=== PATIENT | male | born 1960 | race Caucasian/White ===

== ENCOUNTER → 2017-07-30 16:23 | Outpatient (CLI) | payer OTHER, SELFPAY ==
[2017-07-30 18:14] LABS: Free T3 2.7 pg/mL (2.18-3.98); T4 Free Direct 0.89 ng/dL (0.76-1.46); Thyroid Stim Hormone (TSH) 0.48 uIU/mL (0.358-3.74)
== END ==
PROVIDERS: Family Provider Family Medicine; PCP Family Medicine; Visit Provider Family Medicine
DX: R94.6 Abnormal results of thyroid function studies (principal)
CPT/HCPCS: 36415; 84439; 84443; 84481

== ENCOUNTER → 2018-06-10 16:03 | Outpatient (CLI) | payer OTHER, SELFPAY ==
[2016-10-10 15:56] VITALS: BMI 28.4
[2018-06-10 17:48] LABS: ALB/GLOB Ratio 1.2 RATIO (0.9-2.4); AST(SGOT) 21 U/L (15-37); Alanine Aminotransfer ALT/SGPT 34 U/L (16-61); Alkaline Phosphatase 61 U/L (45-117); Anion Gap 8 (5-15); BUN 15 mg/dL (7-18); BUN/Creat Ratio 18.3 RATIO (10-20); Calcium,Total 8.3 mg/dL (8.5-10.1); Chloride 106 mmol/L (98-107); Cholesterol 166 mg/dL (200); Creatinine, Serum 0.82 mg/dL (0.70-1.30); EST Glomerular Filtration Rate 102 mL/min (>60); Est Glom Filt Rate - Afr Amer 124 mL/min (>60); Globulin 3.3 g/dL (2.2-4.2); Glucose 129 mg/dL (74-106); High Density Lipoprotein 37 mg/dL; Potassium 3.5 mmol/L (3.5-5.1); Protein, Total 7.3 g/dL (6.4-8.2); Sodium Level 141 mmol/L (136-145); Thyroid Stim Hormone (TSH) 0.37 uIU/mL (0.358-3.74); Triglycerides 113 mg/dL; Very Low Density Lipoprotein 23 mg/dL (5-40)
== END ==
LOC: MTLAB 16:08
PROVIDERS: Family Provider Family Medicine; PCP Family Medicine; Referring Provider Family Medicine; Visit Provider Family Medicine
DX: E11.65 Type 2 diabetes mellitus with hyperglycemia (principal)
CPT/HCPCS: 36415; 80053; 80061; 84403; 84443

== ENCOUNTER → 2019-09-01 | Outpatient (CLI) | payer OTHER, SELFPAY ==
[2016-10-10 15:56] VITALS: BMI 28.4
[2019-09-01 14:04] LABS: ALB/GLOB Ratio 1.1 RATIO (0.9-2.4); AST(SGOT) 18 U/L (15-37); Alanine Aminotransfer ALT/SGPT 26 U/L (16-61); Alkaline Phosphatase 63 U/L (45-117); Anion Gap 8 (5-15); BUN 16 mg/dL (7-18); BUN/Creat Ratio 17.2 RATIO (10-20); Calcium,Total 8.9 mg/dL (8.5-10.1); Chloride 106 mmol/L (98-107); Cholesterol 264 mg/dL (200); Creatinine, Serum 0.93 mg/dL (0.70-1.30); EST Glomerular Filtration Rate 88 mL/min (>60); Est Glom Filt Rate - Afr Amer 107 mL/min (>60); Globulin 3.6 g/dL (2.2-4.2); Glucose 131 mg/dL (74-106); High Density Lipoprotein 59 mg/dL; Potassium 3.6 mmol/L (3.5-5.1); Protein, Total 7.6 g/dL (6.4-8.2); Sodium Level 142 mmol/L (136-145); Thyroid Stim Hormone (TSH) 0.37 uIU/mL (0.358-3.74); Triglycerides 95 mg/dL; Very Low Density Lipoprotein 19 mg/dL (5-40)
== END | disposition home or self-care (01) ==
LOC: MTLAB 10:49
PROVIDERS: PCP Family Medicine; Referring Provider Family Medicine; Visit Provider Family Medicine
DX: E11.65 Type 2 diabetes mellitus with hyperglycemia (principal)
CPT/HCPCS: 36415; 80053; 80061; 84443

== ENCOUNTER → 2020-09-12 17:24 | Outpatient (CLI) | payer OTHER, SELFPAY ==
[2016-10-10 15:56] VITALS: BMI 28.4
--- NOTE | 2020-09-12 17:28 | RAD_ITS ---
STUDY: X-RAY - RIGHT HAND REASON FOR EXAM: Male, 59 years old. THUMB PAIN TECHNIQUE: 3 view(s) of the hand. COMPARISON: None. FINDINGS: Normal radiocarpal articulation. Normal distal radioulnar joint. Normal visualized carpal bones. Normal carpal articulations Normal carpometacarpal articulation of the thumb. Normal second through fifth carpometacarpal joints. Normal metacarpi. Normal metacarpophalangeal joint of the thumb. Normal interphalangeal joint of the thumb. Surgical anchor within the base of the first proximal phalanx per Normal metacarpophalangeal joints of the second through fifth fingers. Normal proximal and distal interphalangeal joints of the second through fifth fingers. Normal phalanges of the second through fifth fingers. The soft tissue structures are unremarkable. RAD/Hand Min 3 Views IMPRESSION: Normal x-ray examination of the hand. Surgical anchor in the base of the first proximal phalanx. Electronically Signed: Kodi Rao MD at 7:08 EDT Tel , Service support ,
== END ==
PROVIDERS: PCP Family Medicine; Referring Provider Family Medicine; Visit Provider Family Medicine
DX: M79.644 Pain in right finger(s) (principal)
CPT/HCPCS: 73130

== ENCOUNTER → 2020-09-30 15:05 | Outpatient (CLI) | payer OTHER, SELFPAY ==
[2016-10-10 15:56] VITALS: BMI 28.4
[2020-09-30 18:35] LABS: Anion Gap 8 (5-15); BUN 22 mg/dL (7-18); BUN/Creat Ratio 22.6 RATIO (10-20); Calcium,Total 9.2 mg/dL (8.5-10.1); Chloride 106 mmol/L (98-107); Cholesterol 198 mg/dL (200); Creatinine, Serum 0.97 mg/dL (0.70-1.30); EST Glomerular Filtration Rate 83 mL/min (>60); Est Glom Filt Rate - Afr Amer 101 mL/min (>60); Glucose 117 mg/dL (74-106); High Density Lipoprotein 58 mg/dL; Potassium 4.1 mmol/L (3.5-5.1); Sodium Level 141 mmol/L (136-145); Triglycerides 102 mg/dL; Very Low Density Lipoprotein 20 mg/dL (5-40)
== END ==
PROVIDERS: PCP Family Medicine; Visit Provider Family Medicine
DX: E11.65 Type 2 diabetes mellitus with hyperglycemia (principal)
CPT/HCPCS: 36415; 80048; 80061

== ENCOUNTER → 2021-02-04 | Outpatient (CLI) | payer OTHER, SELFPAY | END | disposition home or self-care (01) | PROVIDERS: PCP Family Medicine; Referring Provider Family Medicine; Visit Provider Family Medicine | DX: U07.1 COVID-19 (principal) | CPT/HCPCS: 87635; U0005; U0003 ==

== ENCOUNTER 2021-02-06 14:40 | Outpatient (CLI) | payer OTHER, SELFPAY ==
[2021-02-06] VITALS (7 sets, daily range): BP systolic 88–113; BP diastolic 51–63; PULSE 66–72; RESP 16–20; TEMP 36.8–37.4; O2SAT 95–98; BMI 27.4
--- NOTE | 2021-02-06 15:10 | NURSING ---
while starting IV on pt called out stating he did not feel good. Pt noted to be pale, very diaphoretic. Pt requested to use restroom. Informed pt would need to wait until VS obtained. Feet elevated, head layed back. BP noted to be low. Encouaged pt to take slow deep breaths.
[2021-02-06] MEDS: 0.9% Normal Saline 1,000 ML 999 ML IV (15:20)
[2021-02-06] MEDS: 0.9% Saline Lock 10 ML Syringe IV (15:51)
--- NOTE | 2021-02-06 15:53 | NURSING ---
Pt amulated to floor. No s/s of distress. IV started.
[2021-02-06 20:26] LABS: Bedside Glucose 305 mg/dL (70-110)
== END 2021-02-06 17:55 | disposition home or self-care (01) ==
LOC: MS3OUT 14:40 → MS3 14:41
PROVIDERS: PCP Family Medicine; Referring Provider Nurse Practitioner Adult Health; Visit Provider Nurse Practitioner Adult Health
DX: Z23 Encounter for immunization (principal); U07.1 COVID-19
CPT/HCPCS: 82962; J7030; M0245; Q0245; A4216

== ENCOUNTER → 2021-03-05 06:51 | Outpatient (CLI) | payer OTHER, SELFPAY ==
--- NOTE | 2021-03-05 09:37 | NEURO ---
NCS and/or EMG Patient Report Ordering Doctor: Kingston Canales DATE OF SERVICE: 03/05/21 Wilfred presents for electrodiagnostic testing of the upper limbs. Reports numbness and tingling in both hands, progressively worsening over the past 4 months. Electrodiagnostic findings: Right median motor nerve demonstrates normal distal latency and amplitude with reduced conduction velocity. Left median motor nerve demonstrates prolonged distal latency with normal amplitude and reduced conduction velocity. Right ulnar motor nerve demonstrates normal distal latency and amplitude with a drop in conduction velocity across the elbow. Normal left ulnar motor response. Prolonged left median F wave. Prolonged left and right median sensory latency at the wrist. Prolonged left median palmar latency. Normal ulnar and radial sensory responses. On needle EMG, all muscles tested in the upper limbs, as well as the cervical paraspinals, showed no evidence of denervation with normal motor unit action potentials. Electrodiagnostic impression: This is an abnormal study in the upper limbs 1. Electrodiagnostic findings demonstrate bilateral median mononeuropathy. This is consistent with a moderate left carpal tunnel syndrome and a mild right carpal tunnel syndrome 2. Electrodiagnostic findings suggestive of a mild right cubital tunnel syndrome. 3. No electrodiagnostic evidence is noted for cervical radiculopathy.
== END ==
PROVIDERS: PCP Family Medicine; Referring Provider Orthopaedic Surgery; Visit Provider Orthopaedic Surgery
DX: G56.03 Carpal tunnel syndrome, bilateral upper limbs (principal); M19.042 Primary osteoarthritis, left hand
CPT/HCPCS: 95886; 95913

== ENCOUNTER → 2021-03-31 12:32 | Outpatient (CLI) | payer OTHER, SELFPAY ==
--- NOTE | 2021-03-31 12:34 | EKG12_ITS ---
Test Reason : PREOP Blood Pressure : / mmHG Vent. Rate : 105 BPM Atrial Rate : 105 BPM P-R Int : 128 ms QRS Dur : 078 ms QT Int : 376 ms P-R-T Axes : 045 005 019 degrees QTc Int : 496 ms Sinus tachycardia Otherwise normal ECG Confirmed by ERINN SHI, MAI ([id number]), fan mail editor TOM PEDROZA ([id number]) on 04/01/2021 10:06:44 AM Referred By: Giuliano Brumfield Confirmed By:MAI PLASENCIA MD
[2021-03-31 14:51] LABS: Hematocrit 44.1 % (40-54); Hemoglobin 15.1 g/dL (13.0-16.5); Mean Corp Hgb Conc 34.2 g/dL (32-36); Mean Corpuscular Hgb 32.5 pg (27.0-32.0); Mean Platelet Vol. 9.9 fl (6.2-12.0); Platelet Count 410 K/mm3 (150-450); RBC Distribution Width CV 12.1 % (11.6-14.6); RBC Distribution Width SD 42.1 fl (35.1-43.9); Red Blood Count 4.64 M/mm3 (4.6-6.2); White Blood Count 9.2 K/mm3 (4.4-11.0)
[2021-03-31 15:27] LABS: Anion Gap 9 (5-15); BUN 15 mg/dL (7-18); Calcium,Total 9.2 mg/dL (8.5-10.1); Chloride 107 mmol/L (98-107); Creatinine, Serum 0.94 mg/dL (0.70-1.30); EST Glomerular Filtration Rate 87 mL/min (>60); Est Glom Filt Rate - Afr Amer 105 mL/min (>60); Glucose 200 mg/dL (74-106); Sodium Level 139 mmol/L (136-145)
[2021-03-31 15:37] LABS: Hemoglobin A1c 10.5 % (3.8-5.6)
== END ==
PROVIDERS: PCP Family Medicine; Referring Provider Physician Assistant; Visit Provider Physician Assistant
DX: Z01.818 Encounter for other preprocedural examination (principal); Z11.59 Encounter for screening for other viral diseases
CPT/HCPCS: 36415; 80048; 83036; 85027; 87635; 93005; C9803; U0005; U0003

== ENCOUNTER → 2021-11-10 | Outpatient (CLI) | payer OTHER, SELFPAY ==
[2021-11-10 18:22] LABS: Vitamin B12 436 pg/mL (211-911)
[2021-11-10 18:26] LABS: Anion Gap 7 (5-15); BUN 16 mg/dL (7-18); BUN/Creat Ratio 16.4 RATIO (10-20); Calcium,Total 9.2 mg/dL (8.5-10.1); Chloride 103 mmol/L (98-107); Cholesterol 240 mg/dL (200); Creatinine, Serum 0.98 mg/dL (0.70-1.30); EST Glomerular Filtration Rate 83 mL/min (>60); Est Glom Filt Rate - Afr Amer 100 mL/min (>60); Glucose 118 mg/dL (74-106); High Density Lipoprotein 46 mg/dL; PSA,Total - Annual Screen 2.32 ng/mL (0.00-4.00); Potassium 3.6 mmol/L (3.5-5.1); Sodium Level 139 mmol/L (136-145); Thyroid Stim Hormone (TSH) 0.69 uIU/mL (0.358-3.74); Triglycerides 292 mg/dL; Very Low Density Lipoprotein 58 mg/dL (5-40)
== END | disposition home or self-care (01) ==
LOC: MFPLAB 16:16
PROVIDERS: PCP Family Medicine; Visit Provider Family Medicine
DX: E11.65 Type 2 diabetes mellitus with hyperglycemia (principal); Z12.5 Encounter for screening for malignant neoplasm of prostate
CPT/HCPCS: 36415; 80048; 80061; 82607; 84153; 84403; 84443; G0103

== ENCOUNTER → 2022-02-18 | Outpatient (CLI) | payer OTHER, SELFPAY | END | disposition home or self-care (01) | PROVIDERS: PCP Family Medicine; Referring Provider Family Medicine; Visit Provider Family Medicine | DX: E11.65 Type 2 diabetes mellitus with hyperglycemia (principal) | CPT/HCPCS: 36415; 83525; 84681 ==

== ENCOUNTER 2022-04-07 00:41 | Inpatient (IN) | payer OTHER, SELFPAY ==
[2022-04-07] VITALS (28 sets, daily range): BP systolic 92–187; BP diastolic 7–100; PULSE 77–102; RESP 12–20; TEMP 36.2–37.1; O2SAT 14–100; BMI 30.2
--- NOTE | 2022-04-07 00:49 | RAD_ITS ---
STUDY: X-RAY CHEST REASON FOR EXAM: Male, 61 years old. chest pain TECHNIQUE: Single AP portable view of the chest. COMPARISON: None. FINDINGS: The lungs are clear and expanded. There is no demonstrated pleural abnormality. Normal size heart. Normal mediastinum and kendra. Normal visualized pulmonary arteries. Normal visualized aortic arch and descending thoracic aorta. Normal visualized thoracic spine. There is degenerative osteoarthritis of the bilateral shoulders. There is no demonstrated abnormality of the visualized soft tissue structures of the upper abdomen. RAD/Chest 1 View (Portable) IMPRESSION: Degenerative changes, as described above. No demonstrated acute cardiopulmonary process. Electronically Signed: Chris Gar MD at 1:26 EST ,
--- NOTE | 2022-04-07 00:49 | EKG12_ITS ---
Test Reason : Blood Pressure : / mmHG Vent. Rate : 081 BPM Atrial Rate : 081 BPM P-R Int : 148 ms QRS Dur : 094 ms QT Int : 402 ms P-R-T Axes : 055 015 034 degrees QTc Int : 466 ms Normal sinus rhythm Normal ECG Confirmed by RAYMOND SHI, ERI ([id number]), editor & co founder TOM PEDROZA ([id number]) on 04/08/2022 9:57:38 AM Referred By: Confirmed By:ERI ANDRADE MD
--- NOTE | 2022-04-07 00:58 | ED.VIS.CHEST ---
HPI History of Present Illness Chief Complaint: Chest Pain Detail of Chief Complaint: Epigastric abdominal pain. Informant: patient and spouse/S.O. Onset/Context/Timing Onset: Today and Hours Activity at onset: gradual Timing: Continuous Quality: Positive for Aching, Indigestion, Pain, Sharp, Stabbing and - (Epigastric) Current Severity: Moderate Maximum Severity: Moderate Worsened By: Nothing Relieved By: Nothing Associated Symptoms: Positive for Nausea and Acid Reflux; Negative for Vomiting, Diaphoresis, Dyspnea, Cough, Fever, Lightheadedness or Palpitations Narrative Narrative: 61-year-old male history of diabetes and hypertension. Stress test years ago negative. No Prior cardiac catheterization or cardiac history. States around 930 tonight were just sitting at home relaxing. It epigastric abdominal pain. Associated nausea no vomiting or diarrhea. No hematemesis. No melena. No fever or chills. Really no chest pain and no radiation to his arm or neck. He thinks it might radiate into his lower back. No diaphoresis. No recent exertional symptoms. Prior Similar Symptoms: No Recent Illness/Hospitalization: No CVD Risk Factors: Positive for Hypertension and Diabetes; Negative for Smoking PE Risk Factors: Negative for Recent Travel/Surgery, Recent Immobilization, Prior DVT or PE, Cancer or OCP + Smoking + >/=35 TAD Risk Factors: Negative for Marfan's Syndrome PFSH [facility], [facility] Medical History Diabetes Diverticulitis Hypertension Home Medications venlafaxine 150 mg capsule,extended release 24 hr 150 mg PO DAILY 04/14/13 [History Last Taken Unknown] lisinopril 20 mg tablet 20 mg PO DAILY ##30 12/22/14 [Rx Last Taken Unknown] insulin glargine 100 unit/mL (3 mL) subcutaneous pen (Lantus Solostar U-100 Insulin) 30 unit subcut DAILY 04/07/22 [History Last Taken Unknown] Allergy/AdvReac Type Severity Reaction Status Date / Time simvastatin [From Zocor] AdvReac Pain in Verified 04/07/22 00:46 joints Social History Smoking Status: Never smoker ROS ROS ED ROS Narrative Epigastric abdominal pain. Review of Systems ROS Unobtainable: Denies due to encephalopathy Constitutional Constitutional ED: Denies chills or fever(s) Eyes Eyes: Denies none ENT ENT ED: Denies ear pain Cardiovascular Cardiovascular: Reports as per HPI and other Details: Epigastric abdominal pain ; Denies chest pain, palpitations or racing heartbeat Respiratory/Chest Respiratory/Chest: Denies cough Gastrointestinal Gastrointestinal: Reports abdominal pain and nausea; Denies constipation, diarrhea, melena or vomiting Genitourinary Genitourinary ED: Denies dysuria Musculoskeletal Musculoskeletal: Denies arthralgias Integumentary Denies abscess Psychiatric Psychiatric: Denies anxiety Endocrine Endocrinology: Denies cold intolerance Hematologic/Lymphatic Hematologic/Lymphatic: Denies easy bleeding Allergic/Immunologic Allergic/Immunologic ED: Denies mouth swelling EXAM Physical Exam Narrative Exam Narrative: 61-year-old male complaining of a gassy abdominal pain. Vital signs stable afebrile. Pulse ox 9 9% on room air no signs hypoxia. H EENT exam unremarkable. Neck nontender no JVD. Lungs clear to auscultation bilaterally. Heart regular rhythm rate about 80 no murmur. Abdomen is soft. Epigastric tenderness. No rebound, guarding rigidity. No pulsatile mass. Right upper and right lower quadrant unremarkable rest the abdomen soft nontender nondistended. Moving all 4 extremities. Calves are nontender without edema. Neurologically is awake and alert with no focal motor deficits. Const Vital Signs: 04/07/22 00:41 04/07/22 00:43 04/07/22 00:53 Temperature 97.9 F Temperature Source Temporal Pulse Rate 90 Respiratory Rate 18 Respiratory Effort Normal Blood Pressure 187/100 H Blood Pressure Mean 129 Pulse Ox 99 93 Oxygen Delivery Method Room Air Room Air 04/07/22 01:16 04/07/22 02:02 04/07/22 03:00 Temperature Temperature Source Pulse Rate 84 88 89 Respiratory Rate 16 16 18 Respiratory Effort Blood Pressure 180/90 H 177/88 H 174/86 H Blood Pressure Mean 120 117 115 Pulse Ox 98 98 96 Oxygen Delivery Method Room Air Room Air Room Air 04/07/22 04:25 04/07/22 05:00 04/07/22 06:27 Temperature Temperature Source Pulse Rate 86 77 80 Respiratory Rate 16 12 20 H Respiratory Effort Blood Pressure 143/80 H 146/76 H 146/86 H Blood Pressure Mean 101 99 106 Pulse Ox 90 92 96 Oxygen Delivery Method Room Air Room Air Room Air 04/07/22 07:00 Temperature Temperature Source Pulse Rate 78 Respiratory Rate 14 Respiratory Effort Blood Pressure 130/75 H Blood Pressure Mean 93 Pulse Ox 91 Oxygen Delivery Method Room Air Positive well nourished and well developed; Negative for cachectic, contractures or unkempt General Appearance ED: well developed and NAD; Negative for unkempt, cachectic, contractures or pallor Nutritional Appearance: Negative for cachectic HEENT Reports moist mucous membranes normocephalic and atraumatic; Negative for trauma or tenderness Eyes PERRL and EOMs intact bilaterally General Eye ED: Negative for pale conjunctiva or scleral icterus Neck no lymphadenopathy, supple and no JVD General: Negative for tenderness Chest Wall inspection of chest normal and palpation of chest normal Chest: Negative for tenderness Resp normal respiratory effort and clear to auscultation bilaterally Effort and Inspection: Negative for respiratory distress Auscultation: Negative for rales, rhonchi or wheezes Cardio regular rate, regular rhythm, S1 normal heart sound, S2 normal heart sound and no murmurs Rate: Negative for bradycardia Rhythm: Negative for abnormal rhythm Peripheral Pulses: pulses 2+ throughout GI normal to inspection, nondistended, normoactive bowel sounds, soft to palpation, non-distended and no masses; Negative for non-tender GI Narrative: Epigastric tenderness. Right upper and right lower quadrants are nontender. Back/Spine no CVA tenderness and no thoracic nor lumbar tenderness General Back: Negative for CVA tenderness Cervical Spine: Negative for cervical spine tenderness Extremity normal to inspection General Extremety ED: Negative for edema or pulses abnormal General Extremity: Negative for edema or pulses abnormal Neuro oriented x3 and CN's II-XII intact bilaterally Sensorium / Orientation: awake, alert, oriented to person, oriented to place and oriented to time; Negative for confused, lethargic or stuporous Motor Exam: strength 5/5 throughout Psych mental status grossly normal Appearance: Negative for unkempt Attitude: No agitated Mood & Affect: Negative for depressed, anxious or tearful Skin no rashes or lesions noted and no wounds General Skin Exam: Negative for jaundice or pallor Rashes: No rashes noted Trauma: Negative for abrasion or laceration MDM MDM MDM Narrative Medical decision making narrative: 61-year-old male history of diabetes hypertension with epigastric abdominal pain. Rule out cardiac etiology even though this does not sound cardiac. Consider gastritis, reflux, pancreatitis or gallbladder disease. Labs, EKG and x-ray will be obtained. He will be started on GI cocktail and Protonix and see if that helps with his pain. His initial EKG is unremarkable. Repeat exam at 2:15 AM patient having recurrent epigastric pain. He said initially GI cocktail Protonix helped. The pain is not 8 out of 10. No chest pain. We went over his labs. To be given morphine and Zofran. Due to his elevated white count epigastric pain I will obtain an abdominal CT abdomen and pelvis with IV contrast. Also repeat EKG. However clinically I do not think this is cardiac. His initial troponin was normal. Multiple repeat exams. Patient is doing well at 3:57 AM. He still has some mild discomfort but is improved after the morphine. His CAT scan showed suspected thickened gallbladder wall that may be consistent with cholecystitis. I discussed that with the patient. His will go home and get some sleep. I have ordered an ultrasound which she will do first thing in the morning and depending on the ultrasound results will determine the patient's final disposition. Currently he is resting comfortably. He has mild epigastric tenderness. No peritoneal signs. Repeat exam at 6:15 AM he is requesting additional pain medication be given another 4 mg IV of morphine initially that helped him significantly. We are just awaiting ultrasound to be done this morning. If it is positive for cholecystitis will be treated with IV antibiotics and admitted. Patient will be turned over to the a.m. physician to follow-up on his gallbladder ultrasound results. Lab Data Attestation: I reviewed the patient's lab results. Lab results narrative: Chest x-ray portable, unremarkable. CBC shows an elevated white count of 15.4. H&H 15.4 and 47. Platelets 359. Electrolytes gap 7. BUN 23 creatinine 0.9. Glucose 253. Liver enzymes unremarkable. Lipase normal 135. Troponin is normal at 8. Second troponin 9. Labs: Laboratory Results - last 24 hr 04/07/22 04/07/22 04/07/22 00:48 00:48 03:10 WBC 15.4 H RBC 4.82 Hgb 15.4 Hct 47.1 MCV 97.7 H MCH 32.0 MCHC 32.7 RDW Std Deviation 42.3 RDW Coeff of Krystal 11.7 Plt Count 359 MPV 9.9 Immature Gran % (Auto) 1.100 H Neut % (Auto) 76.0 H Lymph % (Auto) 16.2 L Branch % (Auto) 5.1 Eos % (Auto) 0.9 Baso % (Auto) 0.7 Absolute Neuts (auto) 11.7 H Absolute Lymphs (auto) 2.49 Nucleated RBC % 0 Sodium 138 Potassium 3.8 Chloride 103 Carbon Dioxide 28.0 Anion Gap 7 BUN 23 H Creatinine 0.96 Estim Creat Clear Calc 71.07 Est GFR (MDRD) Af Amer 102 Est GFR (MDRD) Non-Af 85 BUN/Creatinine Ratio 24.1 H Glucose 253 H Calcium 9.4 Total Bilirubin 0.40 Direct Bilirubin 0.13 AST 17 ALT 38 Alkaline Phosphatase 108 Troponin I High Sens 8 9 Total Protein 8.0 Albumin 4.0 Globulin 4.0 Lipase 135 Radiography Chest X-Ray - ED: 1 View, Read by ED Physician, Read by Radiologist, Heart, Lungs, Mediastinum, Bony Structures, No Acute Disease and Chronic Changes Diagnostic Testing: Clinical Impression(s) from Imaging Studies Chest X-Ray 04/07/22 00:49 IMPRESSION: Degenerative changes, as described above. No demonstrated acute cardiopulmonary process. Electronically Signed: Chris Gar MD at 1:26 EST , Abdomen/Pelvis CT 04/07/22 02:19 IMPRESSION: Bilateral renal cysts the largest measures 3 cm in the left kidney. Colon diverticulosis. There is thickening of the gallbladder wall suggesting cholecystitis. Electronically Signed: Chris Gar MD at 3:36 EST , Chest x-ray, portable, single view interpreted by myself and the radiologist shows no acute abnormality. Chronic changes. Normal cardiac silhouette. Normal mediastinum. Rhythm Strip Rhythm Strip: Sinus Rhythm Rate: 82 Ectopy: None EKG Initial EKG: Attestation: I personally reviewed and interpreted this EKG as follows: Interpretation: Sinus Rhythm and No Acute Injury Pattern Comments: Normal sinus rhythm rate of 82 no acute signs of [place] or ischemia. Follow-up EKG: Attestation: I personally reviewed and interpreted this EKG as follows: Interpretation: Sinus Rhythm and No Acute Injury Pattern Comments: Second EKG was normal sinus rhythm rate 81. No acute signs of [place] or ischemia no change from the first. Prior EKG tracings: available for review Prior: Unchanged Discharge Plan Triage Chief Complaint: Chest Pain ED Provider: Frank Parham Dx/Rx/DC Orders Clinical Impression: Abdominal pain, Acute cholecystitis, Leukocytosis, History of diabetes mellitus Prescriptions: No Action venlafaxine 150 MG capsule 150 mg PO DAILY Label Comments: mental health lisinopril 20 MG tablet 20 mg PO DAILY Qty: 30 0RF Label Comments: blood pressure/heart insulin glargine [Lantus Solostar U-100 Insulin] 100 unit/mL (3 mL) insulin pen 30 unit SUBCUT DAILY Label Comments: INJECT 30 UNITS SUBCUTANEOUSLY AT BEDTIME Primary Care Provider: Gutierrez Christensen Referrals: Gutierrez Christensen MD [Primary Care Provider] -
[2022-04-07] MEDS: Mag Hydrox/Al Hydrox/Simeth 30 ML UDC PO (01:01)
[2022-04-07 01:15] LABS: Absolute Lymphocyte Count 2.49 X10^3/uL (0.83-4.51); Absolute Neutrophil Count 11.7 X10^3/uL (2.0-7.7); Basophil# 0.11 X10^3/uL; Basophil% 0.7 % (0-1); Eosinophil# 0.14 X10^3/uL; Eosinophils% 0.9 % (0-5); Hematocrit 47.1 % (40-54); Hemoglobin 15.4 g/dL (13.0-16.5); Lymphocyte # 2.49 X10^3/ul (0.83-4.51); Lymphocyte % 16.2 % (19-41); Mean Corp Hgb Conc 32.7 g/dL (32-36); Mean Corpuscular Volume 97.7 fL (80-94); Mean Platelet Vol. 9.9 fl (6.2-12.0); Monocyte# 0.79 X10^3/uL; Monocyte% 5.1 % (0-10); NRBC Flagged by Analyzer 0 % (0-5); Neutrophil # 11.66 X10^3/uL (2.7-7.7); Platelet Count 359 K/mm3 (150-450); RBC Distribution Width CV 11.7 % (11.6-14.6); RBC Distribution Width SD 42.3 fl (35.1-43.9); Red Blood Count 4.82 M/mm3 (4.6-6.2); White Blood Count 15.4 K/mm3 (4.4-11.0)
[2022-04-07 01:32] LABS: AST(SGOT) 17 U/L (15-37); Alanine Aminotransfer ALT/SGPT 38 U/L (16-61); Alkaline Phosphatase 108 U/L (45-117); Anion Gap 7 (5-15); BUN 23 mg/dL (7-18); BUN/Creat Ratio 24.1 RATIO (10-20); Bilirubin, Direct 0.13 mg/dL (0.00-0.30); Calcium,Total 9.4 mg/dL (8.5-10.1); Chloride 103 mmol/L (98-107); Creatinine, Serum 0.96 mg/dL (0.70-1.30); EST Glomerular Filtration Rate 85 mL/min (>60); Est Glom Filt Rate - Afr Amer 102 mL/min (>60); Estimated Creatinine Clearance 71.07 ml/min; Glucose 253 mg/dL (74-106); Lipase 135 U/L (73-393); Potassium 3.8 mmol/L (3.5-5.1); Sodium Level 138 mmol/L (136-145); Troponin-I HS (w/2H Reflex) 8 pg/mL (3.0-78.0)
--- NOTE | 2022-04-07 02:19 | CT_ITS ---
STUDY: CT ABDOMEN AND PELVIS WITH CONTRAST REASON FOR EXAM: Male, 61 years old. epigastric abd pain RADIATION DOSAGE (If Supplied By Facility): CTDIvol = ( 16.88 ) mGy, DLP = ( 1061.50 ) mGycm TECHNIQUE: Transaxial images were obtained from the dome of the diaphragm to the symphysis pubis without oral contrast. IV 100mL Isovue-370 was administered. Sagittal and coronal images were reconstructed. Individualized dose optimization techniques were used for this CT. COMPARISON: None. FINDINGS: The visualized lung bases are unremarkable. The visualized portions of the heart are within normal limits. Normal liver. There is thickening of the gallbladder wall suggesting cholecystitis. Normal spleen. Normal pancreas. Normal bilateral adrenal glands. Bilateral renal cysts the largest measures 3 cm in the left kidney. Normal visualized stomach. Normal small intestine. There are multiple colonic diverticula consistent with diverticulosis. The appendix is visualized and appears normal. Normal abdominal aorta. Normal inferior vena cava. Normal retroperitoneum. Normal urinary bladder. Normal abdominal wall. Normal osseous structures. CT/Abdomen/Pelvis W IV Cont ONLY IMPRESSION: Bilateral renal cysts the largest measures 3 cm in the left kidney. Colon diverticulosis. There is thickening of the gallbladder wall suggesting cholecystitis. Electronically Signed: Chris Gar MD at 3:36 EST ,
--- NOTE | 2022-04-07 02:19 | EKG12_ITS ---
Test Reason : CP Blood Pressure : / mmHG Vent. Rate : 082 BPM Atrial Rate : 082 BPM P-R Int : 146 ms QRS Dur : 090 ms QT Int : 394 ms P-R-T Axes : 069 036 053 degrees QTc Int : 460 ms Normal sinus rhythm Normal ECG Confirmed by RAYMOND SHI, ERI ([id number]), publication editor TOM PEDROZA ([id number]) on 04/08/2022 9:58:19 AM Referred By: Confirmed By:ERI ANDRADE MD
[2022-04-07] MEDS: Ondansetron 4 MG/2 ML Vial IV (03:01)
[2022-04-07] MEDS: Morphine 4 MG/ML Syringe IV ×3 (03:01→10:21)
[2022-04-07 03:09] LABS: Reflex Troponin-HS? (from REC) Y
--- NOTE | 2022-04-07 03:55 | US_ITS ---
STUDY: ABDOMINAL ULTRASOUND - RIGHT UPPER QUADRANT REASON FOR VISIT: Male, 61 years old right upper quadrant pain. TECHNIQUE: Ultrasound evaluation of the right upper quadrant was performed with real-time and static smith-scale imaging. TECHNICAL QUALITY: Limited. Examination limited by bowel gas. COMPARISON: Comparison is made with prior CT scan of the abdomen and pelvis done earlier today. FINDINGS: Liver: The liver measures 14.4 cm. There is normal echogenicity of the liver. The bile ducts are within normal limits. There is hepatic color flow. The direction of portal flow is hepatopetal. There is no demonstrated mass lesion. Gallbladder: Normal distended gallbladder. The gallbladder wall measures 1.6 mm. There is a negative sonographic Kenny''s sign. There is no pericholecystic fluid. There are multiple echogenic structures within the gallbladder, consistent with multiple gallstones. Common Bile Duct (C.B.D.): The common bile duct measures 1.6 mm. Pancreas: There is nonvisualization of the pancreas due to overlying bowel gas. Right Kidney: Normal size of the right kidney. The right kidney measures 9.3 cm x 4.5 cm x 5.6 cm. Normal renal cortex. The right cortex measures 2. cm. There is no demonstrated renal mass or cyst. There is no right hydronephrosis. US/Gallbladder IMPRESSION: Multiple gallstones. Nonvisualization of the pancreas overlying bowel gas Electronically Signed: Andres Romo MD at 8:31 EST ,
[2022-04-07 04:12] LABS: Troponin-I HS 9 pg/mL (3.0-78.0)
--- NOTE | 2022-04-07 10:19 | PCM.HP.STD ---
HPI - General General Date of Service: 04/07/22 Chief Complaint: Chest/upper abdominal pain HPI Narrative LOUIS MOREIRA, is a 61 M who presented to [facility] ER after experiencing a severe epigastric and right upper quadrant abdominal pain that wraps around to his back which began approximately 9:30 PM. Patient states that he had been preparing to retire to bed after eating some meat bolus between 7 and 730 when he felt a sudden onset of discomfort. He states this pain was accompanied by nausea but no vomiting. He also denies any fever. He states this is his first such episode with these symptoms. He reports that his bowel movements have been normal and it is only health changes recently has been some mild sinus drainage, but denies any other acute illness. Patient confirms a history of diabetes and hypertension. He also has a remote history of diverticulitis that required segmental colectomy with primary anastomosis. He confirms this is his only prior abdominal surgery. Patient states that he had some improvement in his discomfort with pain medications, but that his pain is now coming back. [facility] Medical History Diabetes Diverticulitis Hypertension Home Medications dapagliflozin 10 mg tablet (Farxiga) 10 mg PO DAILY BLOOD SUGAR 04/07/22 [History Last Taken 3 Weeks Ago ~03/17/22] ezetimibe 10 mg tablet 10 mg PO DAILY CHOLESTEROL 04/07/22 [History Last Taken 04/06/22] insulin glargine 100 unit/mL (3 mL) subcutaneous pen (Lantus Solostar U-100 Insulin) 30 unit subcut DAILY 04/07/22 [History Last Taken Unknown] lisinopril 40 mg tablet 40 mg PO DAILY BLOOD PRESSURE 04/07/22 [History Last Taken 04/06/22] metformin 500 mg tablet,extended release 24 hr 500 mg PO BID BLOOD SUGAR 04/07/22 [History Last Taken 3 Weeks Ago ~03/17/22] pioglitazone 45 mg tablet 45 mg PO DAILY BLOOD SUGAR 04/07/22 [History Last Taken 3 Weeks Ago ~03/17/22] venlafaxine 150 mg capsule,extended release 24 hr 150 mg PO DAILY ANGER 04/07/22 [History Last Taken 04/06/22] Allergy/AdvReac Type Severity Reaction Status Date / Time simvastatin [From Zocor] AdvReac Pain in Verified 04/07/22 00:46 joints Social History Smoking Status: Never smoker ROS Constitutional Constitutional: Reports weight gain; Denies fever(s) Respiratory/Chest Respiratory/Chest: Reports chest congestion Gastrointestinal Gastrointestinal: Reports abdominal pain and nausea; Denies constipation, diarrhea or vomiting Vital Signs Vital Signs Vital Signs: 04/07/22 00:41 04/07/22 00:43 04/07/22 00:53 Temperature 97.9 F Temperature Source Temporal Pulse Rate 90 Respiratory Rate 18 Respiratory Effort Normal Blood Pressure 187/100 H Blood Pressure Mean 129 Pulse Ox 99 93 Oxygen Delivery Method Room Air Room Air 04/07/22 01:16 04/07/22 02:02 04/07/22 03:00 Temperature Temperature Source Pulse Rate 84 88 89 Respiratory Rate 16 16 18 Respiratory Effort Blood Pressure 180/90 H 177/88 H 174/86 H Blood Pressure Mean 120 117 115 Pulse Ox 98 98 96 Oxygen Delivery Method Room Air Room Air Room Air 04/07/22 04:25 04/07/22 05:00 04/07/22 06:27 Temperature Temperature Source Pulse Rate 86 77 80 Respiratory Rate 16 12 20 H Respiratory Effort Blood Pressure 143/80 H 146/76 H 146/86 H Blood Pressure Mean 101 99 106 Pulse Ox 90 92 96 Oxygen Delivery Method Room Air Room Air Room Air 04/07/22 07:00 04/07/22 08:43 04/07/22 09:46 Temperature Temperature Source Pulse Rate 78 82 83 Respiratory Rate 14 13 16 Respiratory Effort Blood Pressure 130/75 H 128/77 H 122/74 H Blood Pressure Mean 93 94 90 Pulse Ox 91 91 95 Oxygen Delivery Method Room Air Room Air Room Air Weight Weight: 187 lb 2.759 oz Body Mass Index (BMI) 30.2 Physical Exam Const alert and oriented x3 General Appearance: cooperative Resp normal respiratory effort GI GI Narrative: Nondistended, lower midline laparotomy scar well-healed (beginning infraumbilical). Soft, moderately tender to palpation in the epigastrium and right upper quadrant. Positive Kenny sign Results Lab / Micro Data Result Diagrams: 04/07/22 00:48 04/07/22 00:48 Labs: Laboratory Results - last 24 hr 04/07/22 00:48: WBC 15.4 H, RBC 4.82, Hgb 15.4, Hct 47.1, MCV 97.7 H, MCH 32.0, MCHC 32.7, RDW Std Deviation 42.3, RDW Coeff of Krystal 11.7, Plt Count 359, MPV 9.9, Immature Gran % (Auto) 1.100 H, Neut % (Auto) 76.0 H, Lymph % (Auto) 16.2 L, [place] % (Auto) 5.1, Eos % (Auto) 0.9, Baso % (Auto) 0.7, Absolute Neuts (auto) 11.7 H, Absolute Lymphs (auto) 2.49, Nucleated RBC % 0 04/07/22 00:48: Sodium 138, Potassium 3.8, Chloride 103, Carbon Dioxide 28.0, Anion Gap 7, BUN 23 H, Creatinine 0.96, Estim Creat Clear Calc 71.07, Est GFR (MDRD) Af Amer 102, Est GFR (MDRD) Non-Af 85, BUN/Creatinine Ratio 24.1 H, Glucose 253 H, Calcium 9.4, Total Bilirubin 0.40, Direct Bilirubin 0.13, AST 17, ALT 38, Alkaline Phosphatase 108, Troponin I High Sens 8, Total Protein 8.0, Albumin 4.0, Globulin 4.0, Lipase 135 04/07/22 03:10: Troponin I High Sens 9 Rhythm Strip Rhythm Strip: Sinus Rhythm Rate: 82 Ectopy: None Radiology Impression Chest X-Ray 04/07/22 00:49 IMPRESSION: Degenerative changes, as described above. No demonstrated acute cardiopulmonary process. Electronically Signed: Chris Gar MD at 1:26 EST Reading Location ID and State: [facility] / [place] Tel , Service support , Abdomen/Pelvis CT 04/07/22 02:19 IMPRESSION: Bilateral renal cysts the largest measures 3 cm in the left kidney. Colon diverticulosis. There is thickening of the gallbladder wall suggesting cholecystitis. Electronically Signed: Chris Gar MD at 3:36 EST , Gallbladder Ultrasound 04/07/22 03:55 IMPRESSION: Multiple gallstones. Nonvisualization of the pancreas overlying bowel gas Electronically Signed: Andres Romo MD at 8:31 EST , Assessment & Plan Assessment/Plan (1) Acute cholecystitis: PLAN: This is a 61-year-old male, with past medical history remarkable for hypertension and diabetes, who presents with 13 hours of acute onset right upper quadrant pain radiating to the back. Onset of pain was postprandial by 2 hours. Patient has not had prior episode. ER work-up notable for leukocytosis by CBC and CT imaging showing some thickening of the gallbladder wall. Follow-up ultrasound did not demonstrate gallbladder wall thickening or pericholecystic fluid, but did confirm gallstones. On exam, patient has persistent tenderness of the right upper quadrant and positive Kenny sign consistent with a diagnosis of cholecystitis. Therefore I have recommended we proceed with inpatient admission and laparoscopic cholecystectomy with possible intraoperative cholangiogram. Procedure was described in detail. Patient was given the opportunity to ask any questions. He denied any further questions I confirmed understanding. Neuro: As needed Dilaudid Pulm/CV: Incentive spirometer, monitor vitals, as needed hydralazine FEN/GI: Trend labs, n.p.o., consent patient for laparoscopic cholecystectomy with possible intraoperative cholangiogram : No current issues Heme/ID: Trend CBC, initiate Zosyn for empiric enteric coverage Endo: Patient to resume diabetic medications once able to resume diet Proph: Ambulate as tolerated, place SCDs Dispo: Admit to inpatient Charges/Coding Visit Charges Inpatient E&M: 68740 Init Hosp L2
[2022-04-07] MEDS: 0.9% Normal Saline 1,000 ML 150 ML IV (10:24)
--- NOTE | 2022-04-07 10:55 | ED.RN ---
do not have SCDs available in ED.
[2022-04-07 11:10] LABS: Bedside Glucose 111 mg/dL (74-106)
--- NOTE | 2022-04-07 11:11 | ED.RN ---
report given to Denice in AC prior to taking pt and there.
[2022-04-07] MEDS: Lactated Ringers 1,000 ML 15 ML IV (11:55)
--- NOTE | 2022-04-07 12:00 | GALL_PTH ---
PATIENT: LOUIS MOREIRA LOC: MS3 U#:[id number] AGE/SX: 61/M ROOM: MN316 RE04/07/[address]: Dr. Kingston Ortiz MD : 1960 BED: 1 DIS: 04/09/2022 SPEC #: [id number] RECD: 04/07/22 14:43 STATUS: ASIM KUHN #: [id number] TENISHA: 04/07/22 12:[address]: Kingston Ortiz DEPT: SURGICAL PATHOLOGY RECD BY: Dania Coombs ENTERED: 04/08/22 07:58 SP TYPE: JEROME LOERA DR: Dr. Song Christensen MD Tissues: Gallbladder, NOS Procedures: Surgery Specimen Level III HEADER OPERATION: Laparoscopic cholecystectomy with IOC PRE-OP DIAGNOSIS: Acute cholecystitis TISSUE SUBMITTED: Gallbladder MICROSCOPIC DIAGNOSIS Gallbladder, cholecystectomy: Acute and chronic cholecystitis and cholelithiasis. AM:brianne 04/09/2022 MICROSCOPIC DESCRIPTION Slides are reviewed. GROSS DESCRIPTION Received is one container labeled with the patient's name and designated gallbladder. The specimen consists of a gallbladder measuring 10.5 cm in length and up to 5 cm in diameter. The external surface is pink-morales, smooth and glistening for the most part. Focally it is granular, hemorrhagic and contains cautery artifact. The gallbladder contains a small amount of green-yellow mucoid bile and multiple mulberry, yellowish stones measuring in aggregate 6 x 6 x 2 cm and 0.1 to 0.8 cm in greatest dimension. The mucosa is bile-stained and without any mass lesions. The mucosa also shows several yellowish streaks consistent with cholesterolosis. The gallbladder wall measures 0.2 to 1 cm in thickness. The thickened area of wall is present only focally. Estate Planning Attorney sections from the gallbladder and the cystic duct are submitted in two cassettes. The entire area of the thickened wall is submitted in entirety. / SJ:brianne 04/08/2022 TC:2 CPT: 73851
--- NOTE | 2022-04-07 12:00 | RAD_ITS ---
STUDY: INTRAOPERATIVE CHOLANGIOGRAM. REASON FOR EXAM: Male, 61 years old. LAP GLENN FLUOROSCOPY TIME (if supplied): ( 33.7 seconds ) minutes/seconds. A cine loop of 51 images was submitted. TECHNIQUE: An intraoperative cholangiolar was performed by the surgeon. Imaging was submitted. COMPARISON: None. FINDINGS: The intra and extrahepatic biliary ducts are unremarkable. No intraluminal filling defects are seen. Free flow of contrast into the duodenum. RAD/Cholangiogram/ O R,Initial IMPRESSION: Unremarkable intraoperative cholangiogram. Electronically Signed: Andres Romo MD at 13:46 EST ,
--- NOTE | 2022-04-07 13:57 | PCM.OPRPT ---
Report of Operation Date of Procedure: 04/07/22 Pre-Operative Diagnosis: Acute cholecystitis Post-Operative Diagnosis: Same Surgery/Procedure Performed:: Laparoscopic cholecystectomy with intraoperative cholangiogram Description of Surgical Findings:: ? Gross evidence of acute cholecystitis with a very edematous and friable gallbladder wall ? Normal cholangiogram showing anterograde opacification of the common bile duct into the duodenum without filling defect and retrograde opacification of the right and left hepatic ducts. Surgeon: Kingston Ortiz catering operations manager: Frank España Type of Anesthesia: General/Supplemental Anesthesiologist: Carlos Enrique Smith Specimen's removed: Gallbladder Drains: None Estimated Blood Loss (mL): 35 Description of Procedure: After proper identification in the preoperative holding area the patient was brought to the operating room where positioned supine on the operating room table. Preoperatively SCDs were placed and antibiotics were previously administered by emergency medicine. General anesthesia was then induced. Patient's abdomen was prepped and draped in usual sterile fashion. A formal timeout was conducted to confirm both patient and the procedure. Procedure was begun with a supraumbilical incision which was extended deeply down to the level of the fascia. The fascia was elevated and incised, as well as the peritoneum. A finger sweep was performed to ensure there were no underlying adhesions and a 12 mm balloon trocar was inserted. Pneumoperitoneum was established at 15 mmHg. 3 additional trocars were placed in the epigastrium and in the right upper quadrant (3 x 5 mm). Inspection of the peritoneum revealed no inadvertent injury to the viscera below. The gallbladder was visualized with moderately severe inflammation with acute edema planes. Several thin adhesions were bluntly swept off the gallbladder surface as they had attached to the omentum below. The gallbladder fundus was then grasped and elevated cephalad. Then, using careful dissection the peritoneum was opened and the structures of the hepatocystic triangle were delineated. Unfortunately despite intentional limitation of the applied traction, a inadvertent rent was made in the area of the gallbladder infundibulum resulting in free flow of bile and stones into the peritoneum. A combination of the suction operations planner and laparoscopic graspers were used to contain this contamination. The clip chief controller station was used to occlude the rent. Once I had identified the cystic duct, cystic artery and the adjoining H branch artery, I elected to perform a cholangiogram to confirm anatomy. The cystic duct was clipped and partially transected in a ductotomy. Then a cholangiocatheter was fed into the proximal segment of the cystic duct and clipped into place. Using an [place] clamp, a cholangiocatheter was fed into the proximal segment of the cystic duct and clamped into place. Under fluoroscopy a cholangiogram was then obtained showing a standard length cystic duct flowing into a common bile duct with unobstructed antegrade flow of contrast into the duodenum. There was also retrograde flow through the common hepatic duct into the right and left hepatic ducts. Satisfied with this result, the cystic duct was triply clipped and sharply divided. The same process was used for the cystic artery. The gallbladder was then removed from the gallbladder fossa with the use of electrocautery. Because the gallbladder was not freely coming away from the gallbladder fossa, I carefully bluntly dissected near the cystic plate and I found a second cystic artery feeding the body of the gallbladder. It was visualized as clearly separate from the liver and thus ligated with a 5 mm clip chief controller station and sharply divided. Selective electrocautery was used to obtain hemostasis in the gallbladder fossa. The gallbladder was placed in an Endo Catch bag and removed from the peritoneum. A 10 mm suction operations planner adapter was connected and Morison's pouch was irrigated and the effluent was suctioned free of the peritoneum to try to remove more of the spilled gallstones. I again then swept the peritoneum with a laparoscopic grasper to remove all of the visible stones. Hemostasis was again confirmed in the gallbladder fossa. The gallbladder was removed in the Endo Catch bag and pneumoperitoneum was evacuated. The fascia of the 12 mm supraumbilical port sites was closed with #1Vicryl in a [id number] fashion. A total of 20 mL of 0.25% ropivacaine local anesthetic was injected at the port sites for postoperative pain control. The skin of each port site was then closed in subcuticular fashion using 4-0 Monocryl. Steri-Strips and bandages were applied as dressings. Patient tolerated the procedure well without any apparent complications. On emergence from their anesthetic the patient was taken to PACU for ongoing recovery. Complications Bile/gallstone contamination of the peritoneum from an inadvertent rent of the gallbladder Admit VTE Documentation VTE Present on Admission: Yes VTE Mechan Device Prophylaxis: SCD's Procedures Digestive 40xxx-49xxx: 55195 Laparo cholecystectomy/graph
[2022-04-07] MEDS: 0.9% Normal Saline 1,000 ML 125 ML IV ×2 (15:00→18:49)
[2022-04-07 15:05] LABS: Bedside Glucose 176 mg/dL (74-106)
[2022-04-07 17:45] LABS: Bedside Glucose 162 mg/dL (74-106)
--- NOTE | 2022-04-07 17:48 | CPS ---
started by nursing
[2022-04-07] MEDS: Insulin Lispro 100 UNIT/ML INSULN.PEN SC ×2 (18:49→21:34)
[2022-04-07] MEDS: oxyCODONE 5 MG Tablet PO (18:49)
[2022-04-07] MEDS: HYDROmorphone 0.5 MG/0.5 ML SYRINGE IV (20:10)
[2022-04-07] MEDS: Insulin Glargine-YFGN 100 UNIT/ML Pen 30 UNIT SC (21:33)
[2022-04-07 22:15] LABS: Bedside Glucose 152 mg/dL (74-106)
[2022-04-08] VITALS (7 sets, daily range): BP systolic 109–146; BP diastolic 47–74; PULSE 77–88; RESP 16–18; TEMP 36.4–37.2; O2SAT 87–94
[2022-04-08] MEDS: HYDROmorphone 0.5 MG/0.5 ML SYRINGE IV ×2 (01:22→05:59)
[2022-04-08 05:18] LABS: Absolute Lymphocyte Count 2.02 X10^3/uL (0.83-4.51); Absolute Neutrophil Count 8.9 X10^3/uL (2.0-7.7); Basophil# 0.05 X10^3/uL; Basophil% 0.4 % (0-1); Eosinophil# 0.23 X10^3/uL; Eosinophils% 1.9 % (0-5); Hematocrit 40.4 % (40-54); Hemoglobin 12.6 g/dL (13.0-16.5); Lymphocyte # 2.02 X10^3/ul (0.83-4.51); Lymphocyte % 16.6 % (19-41); Mean Corp Hgb Conc 31.2 g/dL (32-36); Mean Corpuscular Hgb 31.8 pg (27.0-32.0); Mean Platelet Vol. 9.5 fl (6.2-12.0); Monocyte# 0.81 X10^3/uL; Monocyte% 6.7 % (0-10); NRBC Flagged by Analyzer 0.2 % (0-5); Neutrophil # 8.92 X10^3/uL (2.7-7.7); Neutrophil % 73.4 % (47-70); Platelet Count 270 K/mm3 (150-450); RBC Distribution Width CV 12.3 % (11.6-14.6); RBC Distribution Width SD 46.3 fl (35.1-43.9); Red Blood Count 3.96 M/mm3 (4.6-6.2); White Blood Count 12.2 K/mm3 (4.4-11.0)
[2022-04-08] MEDS: 0.9% Normal Saline 1,000 ML 125 ML IV (05:48)
[2022-04-08 05:49] LABS: AST(SGOT) 47 U/L (15-37); Alanine Aminotransfer ALT/SGPT 70 U/L (16-61); Albumin, Serum 2.9 g/dL (3.2-5.0); Alkaline Phosphatase 94 U/L (45-117); Anion Gap 4 (5-15); BUN 18 mg/dL (7-18); BUN/Creat Ratio 20.2 RATIO (10-20); Calcium,Total 7.6 mg/dL (8.5-10.1); Chloride 108 mmol/L (98-107); Creatinine, Serum 0.89 mg/dL (0.70-1.30); EST Glomerular Filtration Rate 92 mL/min (>60); Est Glom Filt Rate - Afr Amer 111 mL/min (>60); Estimated Creatinine Clearance 76.66 ml/min; Glucose 67 mg/dL (74-106); Potassium 3.7 mmol/L (3.5-5.1); Protein, Total 5.9 g/dL (6.4-8.2); Sodium Level 141 mmol/L (136-145)
[2022-04-08 06:46] LABS: Bedside Glucose 79 mg/dL (74-106)
[2022-04-08 06:56] LABS: Bedside Glucose 97 mg/dL (74-106)
--- NOTE | 2022-04-08 07:53 | PCM.PN.SRG ---
Subjective Subjective Patient seen and examined during AM rounds. He is found resting quietly in bed. He initially reports a pain intensity of 9 out of 10, but clarifies this is occurring only intermittently in his right lower quadrant as if something is catching and then immediately releases. He admits this is significantly improved over his pain with which he presented yesterday to the hospital. Nursing notified me earlier this morning that patient had only voided 100 cc overnight and order was given to perform straight catheterization. Lastly, patient communicated to me that he has taken upon himself to discontinue some of his diabetic medications and not exclusively takes Lantus for his blood sugar control. He admits that he has not communicated this to his primary care provider Dr. Christensen as yet. Objective Data Objective Data Vital Signs: Vital Signs Temp Pulse Resp BP Pulse Ox O2 Del Method O2 Flow Rate 98.2 F 86 16 123/47 H 94 Nasal Cannula 2 04/08/22 05:12 04/08/22 05:12 04/08/22 05:12 04/08/22 05:12 04/08/22 05:12 04/08/22 05:12 04/08/22 05:12 Oxygen Flow Rate (L/min) 2 Oxygen Delivery Method Nasal Cannula Weight: 187 lb 2.759 oz Body Mass Index (BMI) 30.2 Intake & Output: Intake and Output for Last 24 Hours 04/06/22 04/07/22 04/08/22 23:59 23:59 23:59 Intake Total 3137.08 / 3137.08 1050 / 1050 Output Total 675 / 675 Balance 3137.08 / 3137.08 375 / 375 Lab / Micro Data Result Diagrams: 04/08/22 04:49 04/08/22 04:49 Labs: Laboratory Results - last 24 hr 04/07/22 10:51: POC Glucose 111 H 04/07/22 14:30: POC Glucose 176 H 04/07/22 17:22: POC Glucose 162 H 04/07/22 21:32: POC Glucose 152 H 04/08/22 04:49: WBC 12.2 H, RBC 3.96 L, Hgb 12.6 L, Hct 40.4, MCV 102.0 H, MCH 31.8, MCHC 31.2 L, RDW Std Deviation 46.3 H, RDW Coeff of Krystal 12.3, Plt Count 270, MPV 9.5, Immature Gran % (Auto) 1.000 H, Neut % (Auto) 73.4 H, Lymph % (Auto) 16.6 L, [place] % (Auto) 6.7, Eos % (Auto) 1.9, Baso % (Auto) 0.4, Absolute Neuts (auto) 8.9 H, Absolute Lymphs (auto) 2.02, Nucleated RBC % 0.2 04/08/22 04:49: Sodium 141, Potassium 3.7, Chloride 108 H, Carbon Dioxide 29.0, Anion Gap 4 L, BUN 18, Creatinine 0.89, Estim Creat Clear Calc 76.66, Est GFR (MDRD) Af Amer 111, Est GFR (MDRD) Non-Af 92, BUN/Creatinine Ratio 20.2 H, Glucose 67 L, Calcium 7.6 L, Total Bilirubin 0.70, AST 47 H, ALT 70 H, Alkaline Phosphatase 94, Total Protein 5.9 L, Albumin 2.9 L, Globulin 3.0, Albumin/Globulin Ratio 1.0 04/08/22 06:03: POC Glucose 79 04/08/22 06:35: POC Glucose 97 Radiography Diagnostic Testing: Radiology Impression Gallbladder Ultrasound 04/07/22 03:55 IMPRESSION: Multiple gallstones. Nonvisualization of the pancreas overlying bowel gas Electronically Signed: Andres Rmoo MD at 8:31 EST , Cholangiogram 04/07/22 12:00 IMPRESSION: Unremarkable intraoperative cholangiogram. Electronically Signed: Andres Romo MD at 13:46 EST , Rhythm Strip Rhythm Strip: Sinus Rhythm Rate: 82 Ectopy: None Physical Exam Const oriented x3 and no apparent distress Resp normal respiratory effort GI GI Narrative: Mild abdominal distention, operative dressings remain clean dry and intact. Patient denies any significant tenderness with palpation of his abdomen and declares that his colicky pain seems to be occurring in the right lower quadrant. Assessment & Plan Assessment/Plan (1) Status post cholecystectomy: PLAN: Patient status postcholecystectomy and is postoperative day 1. Patient reporting pain intensity of 9 out of 10, however, his vitals, countenance, and exam go against this pain reporting. He is dealing with some postoperative urinary retention and thus underwent straight catheterization to allow the detrusor muscle to regain capacity. I have also started him on Flomax to assist with any prostatic?connected issues. We will work towards improved pain control and weaning him off his supplemental oxygen as we advance his diet today. Encouragingly, patient admits that his pain with which he presented has remitted and his laboratories also show this improvement. Neuro: As needed acetaminophen, as needed ibuprofen, as needed Dilaudid (to be weaned) Pulm/CV: Incentive spirometer, add back patient's home lisinopril, as needed hydralazine FEN/GI: Monitor daily electrolytes, advance to regular?carb controlled diet : Follow-up spontaneous void, Flomax 0.4 daily Heme/ID: Monitor CBC, discontinue empiric Zosyn coverage Endo: Continue patient's home Lantus and sliding scale, monitor blood sugar every 6 hours and watch for hypoglycemia as patient had a reading of 67 this a.m. Proph: Encourage ambulation, encourage out of bed to chair, SCDs Dispo: Continue inpatient care with possible discharge to be considered later today should the above benchmarks be met Charges/Coding Visit Charges Inpatient E&M: 00326 Subs Hosp L2
[2022-04-08] MEDS: Acetaminophen 500 MG Tablet PO (08:25)
[2022-04-08] MEDS: Ezetimibe 10 MG Tablet PO (08:25)
[2022-04-08] MEDS: oxyCODONE 5 MG Tablet PO ×2 (08:25→18:17)
[2022-04-08] MEDS: Lisinopril 40 MG Tablet PO (10:40)
--- NOTE | 2022-04-08 11:00 | CASEMGMT ---
RN ELIZABETH METAL CUTTER CM to room to meet with patient for initial transition planning/care coordination assessment. RN ELIZABETH introduced self and role at [facility].? Pt voices understanding and consents to assessment at this time.? Pt resting in bed in no distress at this time.? Pt is A/O at this time and answers all questions appropriately.?? Care providers, pharmacy, and demographics verified/updated at this time. PCP: Fermin Wang Pharmacy: [facility] Retail Insurance: [employer] Prescription Benefit:? yes LNOK: , [place] Living Arrangements: lives w/ in one-story home w/basement w/2 steps to enter. Independent. Works full-time Transportation: Pt states drives self and states no transportation concerns at this time.? also drives DME: Has a functioning glucometer w/supplies. Denies other DME needs HHC/SNF: No hx of either. No needs identified. Pt wishes to return home and states has no concerns with going home at time of discharge.? CM to follow for any discharge planning/needs.? Pt voices no concerns/needs at this time.? Advised pt to ask for CM if any questions/concerns/needs arise.? Voices understanding. PLAN: ?Home Nena MERCADO RN, CM
--- NOTE | 2022-04-08 11:11 | NURSING ---
This RN performed bladder scan since pt has not voided since being straight cathed this AM. 185ml of urine was observed in scan. YESICA Ibarra notified in person, PA said to give pt more time to void.
[2022-04-08 11:25] LABS: Bedside Glucose 163 mg/dL (74-106)
[2022-04-08] MEDS: Insulin Lispro 100 UNIT/ML INSULN.PEN SC ×3 (11:42→23:25)
[2022-04-08] MEDS: Ibuprofen 400 MG Tablet PO ×3 (11:47→23:26)
[2022-04-08] MEDS: Tamsulosin HCl 0.4 MG Capsule PO (16:02)
[2022-04-08] MEDS: 0.9% Normal Saline 1,000 ML 25 ML IV (16:17)
[2022-04-08 16:45] LABS: Bedside Glucose 173 mg/dL (74-106)
[2022-04-08] MEDS: Insulin Glargine-YFGN 100 UNIT/ML Pen 30 UNIT SC (23:25)
[2022-04-08 23:51] LABS: Bedside Glucose 175 mg/dL (74-106)
[2022-04-09 03:04] VITALS: BP 137/81; PULSE 84; RESP 18; TEMP 37.1; O2SAT 93
[2022-04-09] MEDS: Ibuprofen 400 MG Tablet PO (06:22)
[2022-04-09 06:45] LABS: Bedside Glucose 131 mg/dL (74-106)
[2022-04-09] MEDS: Lisinopril 40 MG Tablet PO (07:43)
[2022-04-09] MEDS: Ezetimibe 10 MG Tablet PO (07:43)
[2022-04-09 07:45] VITALS: O2SAT 97
[2022-04-09 08:10] VITALS: BP 153/85; PULSE 73; RESP 18; TEMP 37; O2SAT 92
--- NOTE | 2022-04-09 09:11 | PCM.DC.SUM ---
Providers Date of Admission: 04/07/22 Primary Care Physician: Dr. Gutierrez Christensen MD Reason For Visit: ACUTE CHOLECYSTITIS Diagnosis Discharge Diagnosis (1) Status post cholecystectomy: Status: Acute Code(s): Z90.49 - Acquired absence of other specified parts of digestive tract Plan: Patient status postcholecystectomy and is postoperative day 1. Patient reporting pain intensity of 9 out of 10, however, his vitals, countenance, and exam go against this pain reporting. He is dealing with some postoperative urinary retention and thus underwent straight catheterization to allow the detrusor muscle to regain capacity. I have also started him on Flomax to assist with any prostatic?connected issues. We will work towards improved pain control and weaning him off his supplemental oxygen as we advance his diet today. Encouragingly, patient admits that his pain with which he presented has remitted and his laboratories also show this improvement. Neuro: As needed acetaminophen, as needed ibuprofen, as needed Dilaudid (to be weaned) Pulm/CV: Incentive spirometer, add back patient's home lisinopril, as needed hydralazine FEN/GI: Monitor daily electrolytes, advance to regular?carb controlled diet : Follow-up spontaneous void, Flomax 0.4 daily Heme/ID: Monitor CBC, discontinue empiric Zosyn coverage Endo: Continue patient's home Lantus and sliding scale, monitor blood sugar every 6 hours and watch for hypoglycemia as patient had a reading of 67 this a.m. Proph: Encourage ambulation, encourage out of bed to chair, SCDs Dispo: Continue inpatient care with possible discharge to be considered later today should the above benchmarks be met Medications at Discharge Home Medications dapagliflozin 10 mg tablet (Farxiga) 10 mg PO DAILY BLOOD SUGAR 04/07/22 insulin glargine 100 unit/mL (3 mL) subcutaneous pen (Lantus Solostar U-100 Insulin) 30 unit subcut QHS DIABETES 04/07/22 lisinopril 40 mg tablet 40 mg PO DAILY BLOOD PRESSURE 04/07/22 venlafaxine 150 mg capsule,extended release 24 hr 150 mg PO DAILY ANGER 04/07/22 Hospital Course Operations cholecystecomy (04/07/2022) Summary of Care Provided Hospital Course: Patient is a 61-year-old male who presented to the emergency department at [facility] on 04/07/2022 with complaints of acute onset abdominal pain the evening before. This pain was unremitting and unprecedented so patient decided to present for further medical evaluation. ER work-up was notable for CBC demonstrating leukocytosis and CT imaging showing gallbladder with a thickened wall. Although reflex ultrasound did not reproduce this gallbladder wall thickening finding, patient did have a positive Kenny sign on clinical exam concerning for cholecystitis. Therefore, upon my evaluation I recommended admission and proceeding to the operating room for urgent laparoscopic cholecystectomy with possible intraoperative cholangiography. Patient excepted this recommendation and we proceeded for the operation the same day. The operation was completed in uncomplicated fashion the patient was admitted postoperatively to the standard [facility] care. Postoperative day 1 patient was found to have urinary retention and a persistent oxygen requirement following his intubation. Through multiple weaning attempts the oxygen was able to be removed, but patient ultimately required to in and out catheterizations before he resumes spontaneous voiding. Following the second catheterization he is also initiated on tamsulosin 0.4 daily. Notably, patient did tolerate diet advancement without issue postoperative day 1. As a diabetic, his blood sugars were closely monitored and overall remained in good control. He admitted that although he has 3 prescriptions for this diagnosis he has only been using his long-acting insulin so this was continued during his hospital stay alongside of a short acting sliding scale. Patient was advised to follow-up with his primary care provider to be sure there is a consensus on his diabetes management. By postoperative day 2 patient's oxygen requirement was no longer present and he was spontaneously voiding without difficulty. His exam was further improved and he was thus granted discharged home after reviewing postoperative expectations. Among these expectations, patient is asked to follow-up with me as an outpatient in approximately 1 week from hospital discharge to review his clinical progress. Physical Exam Const alert, oriented x3 and no apparent distress General Appearance: cooperative Resp normal respiratory effort GI GI Narrative: Mildly distended, operative dressings originally intact with mild bloody strikethrough in the most right lateral port site dressing?otherwise unremarkable. These dressings are removed and Steri-Strips remain intact beneath. There is no periincisional erythema. Patient's abdomen is soft and nontender to palpation x4 quadrants. Weight / BMI Weight Weight: 187 lb 2.759 oz Body Mass Index (BMI) 30.2 ABG / Lab / Microbiology Data Result Diagrams: 04/08/22 04:49 04/08/22 04:49 Laboratory: Laboratory Results - last 24 hr 04/08/22 10:42: POC Glucose 163 H 04/08/22 16:14: POC Glucose 173 H 04/08/22 23:24: POC Glucose 175 H 04/09/22 06:22: POC Glucose 131 H Meaningful Use Info Meaningful Use Diagnoses (Choose all that apply): None applicable Discharge Plan Admission Admit Date/Time: 04/07/22 16:50 Attending Provider: Kingston Ortiz Primary Care Provider: Gutierrez Christensen Discharge Orders/Prescriptions Prescriptions: No Action insulin glargine [Lantus Solostar U-100 Insulin] 100 unit/mL (3 mL) insulin pen 30 unit SUBCUT QHS Label Comments: INJECT 30 UNITS SUBCUTANEOUSLY AT BEDTIME venlafaxine 150 mg capsule,extended release 24hr 150 mg PO DAILY Label Comments: TAKE 1 CAPSULE BY MOUTH EVERY DAY pioglitazone 45 mg tablet 45 mg PO DAILY Label Comments: TAKE 1 TABLET BY MOUTH EVERY DAY lisinopril 40 mg tablet 40 mg PO DAILY Label Comments: TAKE 1 TABLET BY MOUTH EVERY DAY metformin 500 mg tablet extended release 24 hr 500 mg PO BID Label Comments: 1 TABLET BY MOUTH TWO TIMES DAILY ezetimibe 10 mg tablet 10 mg PO DAILY Label Comments: TAKE 1 TABLET BY MOUTH EVERY DAY Farxiga 10 mg tablet 10 mg PO DAILY Label Comments: TAKE 1 TABLET BY MOUTH EVERY DAY Referrals / Follow Up: Gutierrez Christensen MD [Primary Care Provider] -
--- NOTE | 2022-04-09 09:23 | DCINST_ITS ---
Discharge Instructions Diet Discharge Diet: Light diet - advance as tolerated Activity Discharge Activity: May Not Drive (3 days) Lifting Restrictions: 15 pounds for 2 weeks Dressing / Incision Call your doctor if your incision/area has: Continuous Slow Oozing, Sudden Increased Bleeding, Increased Pain/ Swelling, Increased Redness, Foul Smelling Discharge and Swelling at the incision site Call your doctor if you observe: Fever of 101 or Higher Suture Line Care: Avoid Pulling/Pushing and Avoid Pinching/Bending Remove Dressing in: 5 days Cleanse incision/area with: Soap & Water Follow Up Care Please Follow Up With: Kingston Ortiz MD When: 1 week Test Results: Test results from this visit will be discussed in further detail at your follow- up appointment, if applicable. Discharge Plan Admission Admit Date/Time: 04/07/22 16:50 Primary Reason for Your Visit: Acute cholecystitis Attending Provider: Kingston Ortiz Primary Care Provider: Gutierrez Christensen Instructions Additional Instructions / Restrictions: Please remove steri-strips in 5 days Resume regular diet Discuss glucose status with Primary care during May appointment May shower starting today Follow-up in [address] Ortiz Discharge Orders/Prescriptions Prescriptions: New tamsulosin [Flomax] 0.4 mg capsule 0.4 mg PO QHS Qty: 7 0RF Continued insulin glargine [Lantus Solostar U-100 Insulin] 100 unit/mL (3 mL) insulin pen 30 unit SUBCUT QHS Label Comments: INJECT 30 UNITS SUBCUTANEOUSLY AT BEDTIME venlafaxine 150 mg capsule,extended release 24hr 150 mg PO DAILY Label Comments: TAKE 1 CAPSULE BY MOUTH EVERY DAY lisinopril 40 mg tablet 40 mg PO DAILY Label Comments: TAKE 1 TABLET BY MOUTH EVERY DAY Farxiga 10 mg tablet 10 mg PO DAILY Label Comments: TAKE 1 TABLET BY MOUTH EVERY DAY Discontinued pioglitazone 45 mg tablet 45 mg PO DAILY Label Comments: TAKE 1 TABLET BY MOUTH EVERY DAY metformin 500 mg tablet extended release 24 hr 500 mg PO BID Label Comments: 1 TABLET BY MOUTH TWO TIMES DAILY ezetimibe 10 mg tablet 10 mg PO DAILY Label Comments: TAKE 1 TABLET BY MOUTH EVERY DAY Referrals / Follow Up: Gutierrez Christensen MD [Primary Care Provider] - Kingston Ortiz MD [Med Staff - Active Staff] - 04/16/22 (Follow-up in 1 week) Disposition Disposition (needs filled in before D/C Order can be placed): Home, Self Care
--- NOTE | 2022-04-09 10:27 | CASEMGMT ---
RN CM in to pt room, pt denies any homegoing needs and is ready for dc.
== END 2022-04-09 10:24 | disposition home or self-care (01) | DRG 418 ==
LOC: ED 11:51 → SDC 11:51 → ACINP 11:54 → SDC 16:52 → MS3 16:52
PROVIDERS: Admitting Provider Surgery; Emergency Provider Emergency Medicine; PCP Family Medicine; Visit Provider Surgery
PROC: 0FT44ZZ Resection of Gallbladder, Percutaneous Endoscopic Approach (ICD-10-PCS; CPT 47610; principal; 2022-04-07 11:40)
DX: K80.00 Calculus of gallbladder with acute cholecystitis without obstruction (principal); K91.81 Other intraoperative complications of digestive system; K91.71 Accidental puncture and laceration of a digestive system organ or structure during a digestive system procedure; E11.9 Type 2 diabetes mellitus without complications; Z79.4 Long term (current) use of insulin; I10 Essential (primary) hypertension; R33.8 Other retention of urine; Z79.899 Other long term (current) drug therapy; Z90.49 Acquired absence of other specified parts of digestive tract
CPT/HCPCS: 36415; 71045; 74177; 74300; 76000; 76705; 80048; 80053; 80076; 82962; 83690; 84484; 85025; 88304; 93005; 99252; 99285; J7030; Q9967; A4216; G0463; J2405; J3490

== ENCOUNTER 2022-04-24 19:43 | Emergency (ER) | payer OTHER, SELFPAY ==
[2022-04-24 19:43] VITALS: BP 101/66; PULSE 101; RESP 20; TEMP 36.8; O2SAT 98; BMI 29.9
--- NOTE | 2022-04-24 20:06 | EKG12_ITS ---
Test Reason : SYNCOPE Blood Pressure : / mmHG Vent. Rate : 096 BPM Atrial Rate : 096 BPM P-R Int : 126 ms QRS Dur : 088 ms QT Int : 392 ms P-R-T Axes : 044 005 022 degrees QTc Int : 495 ms Normal sinus rhythm Prolonged QT Abnormal ECG Confirmed by ERINN SHI, MAI ([id number]), offline editor TOM PEDROZA ([id number]) on 04/27/2022 10:25:06 AM Referred By: BRADLEY Confirmed By:MAI PLASENCIA MD
[2022-04-24 20:16] VITALS: BP 93/51; PULSE 95; RESP 21; O2SAT 95
[2022-04-24] MEDS: 0.9% Normal Saline 1,000 ML 999 ML IV ×2 (20:17→21:48)
[2022-04-24 20:18] VITALS: BP 102/60; BP 85/60; BP 91/56; PULSE 108; PULSE 95; PULSE 98
[2022-04-24 20:23] LABS: Basophil# 0.11 X10^3/uL; Eosinophil# 0.23 X10^3/uL; Eosinophils% 2.1 % (0-5); Hematocrit 46.9 % (40-54); Hemoglobin 15.1 g/dL (13.0-16.5); Lymphocyte % 19.2 % (19-41); Mean Corp Hgb Conc 32.2 g/dL (32-36); Mean Corpuscular Hgb 31.6 pg (27.0-32.0); Mean Corpuscular Volume 98.1 fL (80-94); Mean Platelet Vol. 9.8 fl (6.2-12.0); Monocyte% 3.7 % (0-10); NRBC Flagged by Analyzer 0 % (0-5); Neutrophil # 7.98 X10^3/uL (2.7-7.7); Neutrophil % 73.2 % (47-70); Platelet Count 415 K/mm3 (150-450); RBC Distribution Width CV 11.9 % (11.6-14.6); Red Blood Count 4.78 M/mm3 (4.6-6.2); White Blood Count 10.9 K/mm3 (4.4-11.0)
--- NOTE | 2022-04-24 20:23 | CT_ITS ---
EXAMINATION : Head CT w/out contrast HISTORY : fall COMPARISON : None. TECHNIQUE : Multiple contiguous axial images were obtained from the skull base to the vertex without intravenous contrast. A radiation dose optimization technique was used for this scan. FINDINGS : The ventricles and sulci are normal in size. There is no evidence for acute intracranial hemorrhage, mass effect, or midline shift. There is no extra-axial fluid collection. There is normal bennett-white differentiation, without CT evidence of acute ischemia or infarct. The skull base and calvarium are unremarkable. The orbits are unremarkable. The paranasal sinuses are clear. The mastoid air cells are well-aerated. The soft tissues are unremarkable. CT/Brain/Head without Contrast IMPRESSION: No acute intracranial abnormality. Electronically Signed: Song Whitney MD at 20:46 EST ,
--- NOTE | 2022-04-24 20:23 | CT_ITS ---
INDICATION: fall EXAMINATION: CT Spine Cervical W/O Contrast Injection TECHNIQUE: Helically acquired images were obtained of the cervical spine. 2D reformatted images were reviewed. A radiation dose optimization technique was used for this scan. IV Contrast dosage and agent: None. COMPARISON: None. FINDINGS: VERTEBRAE: No fracture or traumatic subluxation. No discrete lytic or blastic abnormality. Normal alignment. Normal craniocervical junction and cervicothoracic junction. DISCS and SPINAL CANAL: Moderate multilevel degenerative disc disease and spondylosis. No critical stenosis. NECK SOFT TISSUES: No prevertebral soft tissue swelling. There is no cervical adenopathy. LUNG APICES: Clear. CT/Spine Cervical without Contras IMPRESSION: No evidence of acute cervical spinal fracture or spondylolisthesis. Moderate multilevel degenerative disc disease and spondylosis Electronically Signed: Song Whitney MD at 20:47 EST ,
--- NOTE | 2022-04-24 20:31 | RAD_ITS ---
INDICATION: syncope EXAMINATION/TECHNIQUE: X-RAY - XR Chest 1 View COMPARISON: None. FINDINGS: The lungs are clear. The cardiomediastinal silhouette is unremarkable. No pleural effusion or pneumothorax. No acute osseous abnormalities. RAD/Chest 1 View (Portable) IMPRESSION: No acute radiographic abnormalities. Electronically Signed: Song Whitney MD at 20:47 EST ,
--- NOTE | 2022-04-24 20:38 | EDS_ITS ---
HPI <YESICA Shin - Last Filed: 04/24/22 23:23> History of Present Illness Chief Complaint: Syncope Narrative Narrative: Patient presents today with a syncopal episode that occurred earlier this evening. He states that he got up to let his dog out side next and he knew his was standing over him shouting. Patient states he did feel a little lightheaded when he went to stand up. Patient's states that he was out for around 5 seconds and did not have any seizure-like activity. She states he fell directly backwards and hit his head on the floor. Patient recently had a cholecystectomy on 04/07/22 and states he did not have any complications postop or during the procedure. Patient states his health conditions include diabetes mellitus and hypertension. states that when the squad arrived patient was in the 200s and his blood pressure was from the 70s systolic over 40's diastolic. Patient denies a cardiac history, chest pain, shortness of breath, abdominal pain, nausea, vomiting, diarrhea. PFSH <YESICA Shin - Last Filed: 04/24/22 23:23> [facility] Medical History Diabetes Diverticulitis History of diabetes mellitus Hypertension Home Medications dapagliflozin 10 mg tablet (Farxiga) 10 mg PO DAILY BLOOD SUGAR 04/07/22 [History Last Taken 3 Weeks Ago ~03/17/22] insulin glargine 100 unit/mL (3 mL) subcutaneous pen (Lantus Solostar U-100 Insulin) 30 unit subcut QHS DIABETES 04/07/22 [History Last Taken 04/06/22] lisinopril 40 mg tablet 40 mg PO DAILY BLOOD PRESSURE 04/07/22 [History Last Taken 04/06/22] venlafaxine 150 mg capsule,extended release 24 hr 150 mg PO DAILY ANGER 04/07/22 [History Last Taken 04/06/22] amlodipine 5 mg tablet 5 mg PO DAILY 04/24/22 [History Last Taken Unknown] ezetimibe 10 mg tablet 10 mg PO DAILY 04/24/22 [History Last Taken Unknown] Allergy/AdvReac Type Severity Reaction Status Date / Time simvastatin [From Zocor] AdvReac Pain in Verified 04/24/22 19:46 joints Surgical History H/O shoulder surgery Status post cholecystectomy Social History Smoking Status: Never smoker ROS <YESICA Shin - Last Filed: 04/24/22 23:23> ROS ED Constitutional Constitutional ED: Denies chills, fever(s) or sweats Eyes Eyes: Denies blurry vision or change in vision ENT ENT ED: Denies rhinorrhea or sore throat Cardiovascular Cardiovascular: Denies chest pain, palpitations or racing heartbeat Respiratory/Chest Respiratory/Chest: Denies cough, dyspnea or dyspnea on exertion Gastrointestinal Gastrointestinal: Denies abdominal pain, hematochezia, melena, nausea or vomiting Genitourinary Genitourinary ED: Denies dysuria, hematuria or urinary frequency Musculoskeletal Musculoskeletal: Denies arthralgias, myalgias or neck pain Integumentary Denies abscess, Abrasions or rash Neurologic Neurologic: Denies headache(s), paresthesias or weakness Psychiatric Psychiatric: Denies anxiety, depression or suicidal ideation EXAM <YESICA Shin - Last Filed: 04/24/22 23:23> Physical Exam Const Vital Signs: 04/24/22 19:43 04/24/22 19:50 04/24/22 20:16 Temperature 98.3 F Temperature Source Oral Pulse Rate 101 H 95 Pulse Rate [Lying] Pulse Rate [Sitting (for 1 minute prior to obtaining)] Pulse Rate [Standing (for 1 minute prior to obtaining)] Respiratory Rate 20 H 21 H Respiratory Effort Normal Respiratory Pattern Normal Blood Pressure 101/66 93/51 L Blood Pressure [Lying] Blood Pressure [Sitting (for 1 minute prior to obtaining)] Blood Pressure [Standing (for 1 minute prior to obtaining)] Blood Pressure Mean 77 65 Blood Pressure Mean [Lying] Blood Pressure Mean [Sitting (for 1 minute prior to obtaining)] Blood Pressure Mean [Standing (for 1 minute prior to obtaining)] Pulse Ox 98 95 Oxygen Delivery Method Room Air Room Air 04/24/22 20:18 04/24/22 21:59 04/24/22 22:51 Temperature Temperature Source Pulse Rate 89 89 Pulse Rate [Lying] 95 Pulse Rate [Sitting (for 1 minute prior to obtaining)] 98 Pulse Rate [Standing (for 1 minute prior to obtaining)] 108 H Respiratory Rate Respiratory Effort Respiratory Pattern Blood Pressure 105/62 122/75 H Blood Pressure [Lying] 91/56 L Blood Pressure [Sitting (for 1 minute prior to obtaining)] 102/60 Blood Pressure [Standing (for 1 minute prior to obtaining)] 85/60 L Blood Pressure Mean 76 Blood Pressure Mean [Lying] 67 Blood Pressure Mean [Sitting (for 1 minute prior to obtaining)] 74 Blood Pressure Mean [Standing (for 1 minute prior to obtaining)] 68 Pulse Ox 98 Oxygen Delivery Method Room Air Positive well nourished and well developed General Appearance ED: well developed and NAD HEENT Reports moist mucous membranes Eyes PERRL and EOMs intact bilaterally Neck no lymphadenopathy and supple Chest Wall inspection of chest normal Resp normal respiratory effort and clear to auscultation bilaterally Cardio regular rate, regular rhythm and no murmurs GI non-tender, non-distended and no masses Palpation: soft Extremity normal to inspection Neuro oriented x3, CN's II-XII intact bilaterally and no sensory deficits noted Sensorium / Orientation: alert Motor Exam: strength 5/5 throughout Psych mental status grossly normal Skin no rashes or lesions noted, no wounds and skin turgor normal <Dr. Floridalma Osullivan MD - Last Filed: 04/24/22 23:49> Physical Exam Const Vital Signs: 04/24/22 19:43 04/24/22 19:50 04/24/22 20:16 Temperature 98.3 F Temperature Source Oral Pulse Rate 101 H 95 Pulse Rate [Lying] Pulse Rate [Sitting (for 1 minute prior to obtaining)] Pulse Rate [Standing (for 1 minute prior to obtaining)] Respiratory Rate 20 H 21 H Respiratory Effort Normal Respiratory Pattern Normal Blood Pressure 101/66 93/51 L Blood Pressure [Lying] Blood Pressure [Sitting (for 1 minute prior to obtaining)] Blood Pressure [Standing (for 1 minute prior to obtaining)] Blood Pressure Mean 77 65 Blood Pressure Mean [Lying] Blood Pressure Mean [Sitting (for 1 minute prior to obtaining)] Blood Pressure Mean [Standing (for 1 minute prior to obtaining)] Pulse Ox 98 95 Oxygen Delivery Method Room Air Room Air 04/24/22 20:18 04/24/22 21:59 04/24/22 22:51 Temperature Temperature Source Pulse Rate 89 89 Pulse Rate [Lying] 95 Pulse Rate [Sitting (for 1 minute prior to obtaining)] 98 Pulse Rate [Standing (for 1 minute prior to obtaining)] 108 H Respiratory Rate Respiratory Effort Respiratory Pattern Blood Pressure 105/62 122/75 H Blood Pressure [Lying] 91/56 L Blood Pressure [Sitting (for 1 minute prior to obtaining)] 102/60 Blood Pressure [Standing (for 1 minute prior to obtaining)] 85/60 L Blood Pressure Mean 76 Blood Pressure Mean [Lying] 67 Blood Pressure Mean [Sitting (for 1 minute prior to obtaining)] 74 Blood Pressure Mean [Standing (for 1 minute prior to obtaining)] 68 Pulse Ox 98 Oxygen Delivery Method Room Air [facility] <YESICA Shin - Last Filed: 04/24/22 23:23> [facility] Narrative Medical decision making narrative: Patient presenting after syncopal episode that occurred earlier this evening. Patient is nontoxic-appearing and in no acute distress. On initial evaluation patient's blood pressure is 82/63 and he is tachycardic at 104 bpm. He states that he has not had much to drink today and maybe has had 2 cups of water total. He states when he got up to let the dog out he did feel lightheaded. He is orthostatic negative here. Patient was given 2 L of fluids which improved his blood pressure to 122/75. His pulse on repeat examination is 89 bpm. Vital signs are stable on reexamination. Patient was able to ambulate to the restroom and stated he did not feel lightheaded or dizzy in any way. Blood work is unremarkable. CT scan of the head and neck obtained due to patient falling backwards and hitting head directly on the ground. These came back negative for any intracranial process or acute neck fracture. Chest x-ray does not show any acute findings. I think patient's syncope can be attributed to hypovolemia. I have encouraged him to drink plenty of water throughout the day going forward. I have encouraged him to begin taking his blood pressure at home and if he notices that it is consistently low to contact PCP and hold off on blood pressure medication. Patient be discharged home in stable condition and is comfortable with plan. Lab Data Attestation: I reviewed the patient's lab results. Lab results narrative: CBC unremarkable, CMP unremarkable aside from 341 glucose. Troponin 5. Labs: Laboratory Results - last 24 hr 04/24/22 04/24/22 19:50 19:50 WBC 10.9 RBC 4.78 Hgb 15.1 Hct 46.9 MCV 98.1 H MCH 31.6 MCHC 32.2 RDW Std Deviation 43.0 RDW Coeff of Krystal 11.9 Plt Count 415 MPV 9.8 Immature Gran % (Auto) 0.800 Neut % (Auto) 73.2 H Lymph % (Auto) 19.2 Loup % (Auto) 3.7 Eos % (Auto) 2.1 Baso % (Auto) 1.0 Absolute Neuts (auto) 8.0 H Absolute Lymphs (auto) 2.10 Nucleated RBC % 0 Sodium 136 Potassium 4.4 Chloride 103 Carbon Dioxide 24.0 Anion Gap 9 BUN 18 Creatinine 0.92 Estim Creat Clear Calc 74.16 Est GFR (MDRD) Af Amer 106 Est GFR (MDRD) Non-Af 88 BUN/Creatinine Ratio 19.5 Glucose 341 H Calcium 8.4 L Troponin I High Sens 5 Radiography Diagnostic Testing: Clinical Impression(s) from Imaging Studies Brain CT 04/24/22 20:23 IMPRESSION: No acute intracranial abnormality. Electronically Signed: Song Whitney MD at 20:46 EST Reading Location ID and State: [id number] [employer] , Service support , Cervical Spine CT 04/24/22 20:23 IMPRESSION: No evidence of acute cervical spinal fracture or spondylolisthesis. Moderate multilevel degenerative disc disease and spondylosis Electronically Signed: Song Whitney MD at 20:47 EST Reading Location ID and State: [employer] / [place] [employer] , Service support , Chest X-Ray 04/24/22 20:31 IMPRESSION: No acute radiographic abnormalities. Electronically Signed: Song Whitney MD at 20:47 EST Reading Location ID and State: [id number] [employer] , Service support , EKG Initial EKG: Comments: 96 bpm, no ST elevation, EKG also reviewed and interpreted by attending ED physician. QT/QTC 392/495 <Dr. Floridalma Osullivan MD - Last Filed: 04/24/22 23:49> [facility] Lab Data Labs: Laboratory Results - last 24 hr 04/24/22 04/24/22 19:50 19:50 WBC 10.9 RBC 4.78 Hgb 15.1 Hct 46.9 MCV 98.1 H MCH 31.6 MCHC 32.2 RDW Std Deviation 43.0 RDW Coeff of Krystal 11.9 Plt Count 415 MPV 9.8 Immature Gran % (Auto) 0.800 Neut % (Auto) 73.2 H Lymph % (Auto) 19.2 Loup % (Auto) 3.7 Eos % (Auto) 2.1 Baso % (Auto) 1.0 Absolute Neuts (auto) 8.0 H Absolute Lymphs (auto) 2.10 Nucleated RBC % 0 Sodium 136 Potassium 4.4 Chloride 103 Carbon Dioxide 24.0 Anion Gap 9 BUN 18 Creatinine 0.92 Estim Creat Clear Calc 74.16 Est GFR (MDRD) Af Amer 106 Est GFR (MDRD) Non-Af 88 BUN/Creatinine Ratio 19.5 Glucose 341 H Calcium 8.4 L Troponin I High Sens 5 Radiography Diagnostic Testing: Clinical Impression(s) from Imaging Studies Brain CT 04/24/22 20:23 IMPRESSION: No acute intracranial abnormality. Electronically Signed: Song Whitney MD at 20:46 EST Reading Location ID and State: [id number] / [employer] , Service support , Cervical Spine CT 04/24/22 20:23 IMPRESSION: No evidence of acute cervical spinal fracture or spondylolisthesis. Moderate multilevel degenerative disc disease and spondylosis Electronically Signed: Song Whitney MD at 20:47 EST , Chest X-Ray 04/24/22 20:31 IMPRESSION: No acute radiographic abnormalities. Electronically Signed: Song Whitney MD at 20:47 EST , Treatment and Re-Evaluation Narrative: Patient seen and evaluated with KATIA. I personally interviewed and examined the patient. I was involved in all aspects of patient's orders, interpretation of results, and treatment. Patient seen and evaluated after presenting via EMS with a syncopal episode. Patient had cholecystectomy earlier this month and states has been recovering quite well. Tonight he got up from his chair to let his dog out. He states he remembers getting very lightheaded and the next thing he knows he woke up on the ground with his standing over him. Denies having chest pain or palpitations. He does admit that he is not been drinking much fluid recently. EMS notes he was tachycardic and hypotensive on their arrival. At this time patient has no complaints. Patient sitting upright in bed no acute distress. Is alert and oriented. Head and neck examination is unremarkable. Heart is regular rate and rhythm. Lung sounds are clear. Abdomen is soft and nontender. Neuro exam is normal. Patient is given IV fluids. Lab work obtained along with EKG. Chest x-ray ordered along with CT scan of the head and C-spine. Patient had orthostatic vital signs obtained shortly after his arrival here. He reported only slight dizziness with standing. He did have an elevation in heart rate of 10 bpm and a decrease in systolic blood pressure of 15 mmHg when standing. CBC is unremarkable with normal white count and hemoglobin. Chemistry studies are unremarkable with normal renal function. Troponin is normal at 5. Patient's glucose is elevated at 341. EKG is sinus rhythm with no acute ischemia. QTC is noted to be 495. I did review some prior EKGs. In March 2020 when he had a QTC of 496. Most recent preop EKGs from this month revealed QTC in the 460 range. After 1 L of IV fluid patient has a blood pressure just under 100 systolic. He is given a second liter of IV fluids. He has had no complaints while the emergency room and feels completely back to baseline. He was able to get up and ambulate to the restroom without any difficulty. is at bedside and is comfortable watching him at home. They will increase his p.o. fluids over the next couple days. Return instructions are given. Discharge Plan Triage Chief Complaint: Syncope ED Midlevel Provider: Amanda Rizo ED Provider: Floridalma Osullivan Dx/Rx/DC Orders Clinical Impression: Syncope and collapse, Hypotension, DM2 (diabetes mellitus, type 2) Instructions: Causes of Syncope Prescriptions: No Action insulin glargine [Lantus Solostar U-100 Insulin] 100 unit/mL (3 mL) insulin pen 30 unit SUBCUT QHS Label Comments: INJECT 30 UNITS SUBCUTANEOUSLY AT BEDTIME venlafaxine 150 mg capsule,extended release 24hr 150 mg PO DAILY Label Comments: TAKE 1 CAPSULE BY MOUTH EVERY DAY lisinopril 40 mg tablet 40 mg PO DAILY Label Comments: TAKE 1 TABLET BY MOUTH EVERY DAY Farxiga 10 mg tablet 10 mg PO DAILY Label Comments: TAKE 1 TABLET BY MOUTH EVERY DAY amlodipine 5 mg tablet 5 mg PO DAILY ezetimibe 10 mg tablet 10 mg PO DAILY Primary Care Provider: Gutierrez Christensen Referrals: Gutierrez Christensen MD [Primary Care Provider] - 3-5 Days Activity Restrictions/Additional Instructions: Please follow-up with PCP and return if you have another syncopal episode. Disposition Disposition: Home, Self Care Discharge Date/Time: 04/24/22 22:56
[2022-04-24 20:40] LABS: Anion Gap 9 (5-15); BUN 18 mg/dL (7-18); BUN/Creat Ratio 19.5 RATIO (10-20); Calcium,Total 8.4 mg/dL (8.5-10.1); Chloride 103 mmol/L (98-107); Creatinine, Serum 0.92 mg/dL (0.70-1.30); EST Glomerular Filtration Rate 88 mL/min (>60); Est Glom Filt Rate - Afr Amer 106 mL/min (>60); Estimated Creatinine Clearance 74.16 ml/min; Glucose 341 mg/dL (74-106); Potassium 4.4 mmol/L (3.5-5.1); Sodium Level 136 mmol/L (136-145); Troponin-I HS 5 pg/mL (3.0-78.0)
[2022-04-24 21:59] VITALS: BP 105/62; PULSE 89; O2SAT 98
[2022-04-24 22:51] VITALS: BP 122/75; PULSE 89
== END 2022-04-24 22:56 | disposition home or self-care (01) ==
PROVIDERS: Physician Assistant; Emergency Provider Emergency Medicine; PCP Family Medicine; Visit Provider Emergency Medicine
DX: R55 Syncope and collapse (principal); E11.9 Type 2 diabetes mellitus without complications; I10 Essential (primary) hypertension; I95.9 Hypotension, unspecified
CPT/HCPCS: 70450; 71045; 72125; 80048; 84484; 85025; 93005; 96360; 96361; 99285; J7030; A4216

== ENCOUNTER → 2022-06-17 | Outpatient (CLI) | payer OTHER, SELFPAY ==
[2022-06-17 18:59] LABS: Hemoglobin A1c 9.7 % (3.8-5.6)
== END | disposition home or self-care (01) ==
LOC: MFPLAB 16:19
PROVIDERS: PCP Family Medicine; Referring Provider Family Medicine; Visit Provider Family Medicine
DX: E11.65 Type 2 diabetes mellitus with hyperglycemia (principal)
CPT/HCPCS: 36415; 83036

== ENCOUNTER → 2023-04-02 | Outpatient (CLI) | payer OTHER, SELFPAY ==
[2023-04-02 12:45] LABS: ALB/GLOB Ratio 0.9 RATIO (0.9-2.4); AST(SGOT) 31 U/L (15-37); Alanine Aminotransfer ALT/SGPT 65 U/L (16-61); Albumin, Serum 3.7 g/dL (3.2-5.0); Alkaline Phosphatase 93 U/L (45-117); Anion Gap 5 (5-15); BUN 17 mg/dL (7-18); BUN/Creat Ratio 15.7 RATIO (10-20); Calcium,Total 9.1 mg/dL (8.5-10.1); Chloride 104 mmol/L (98-107); Cholesterol 248 mg/dL (200); Creatinine, Serum 1.08 mg/dL (0.70-1.30); EST Glomerular Filtration Rate 73 mL/min (>60); Est Glom Filt Rate - Afr Amer 88 mL/min (>60); Globulin 4.1 g/dL (2.2-4.2); Glucose 129 mg/dL (74-106); High Density Lipoprotein 42 mg/dL; PSA,Total - Annual Screen 2.45 ng/mL (0.00-4.00); Potassium 3.9 mmol/L (3.5-5.1); Protein, Total 7.8 g/dL (6.4-8.2); Sodium Level 140 mmol/L (136-145); Thyroid Stim Hormone (TSH) 0.95 uIU/mL (0.358-3.74); Triglycerides 219 mg/dL; Very Low Density Lipoprotein 44 mg/dL (5-40)
== END | disposition home or self-care (01) ==
LOC: MFPLAB 10:38
PROVIDERS: PCP Family Medicine; Visit Provider Family Medicine
DX: Z12.5 Encounter for screening for malignant neoplasm of prostate (principal); E11.65 Type 2 diabetes mellitus with hyperglycemia
CPT/HCPCS: 36415; 80053; 80061; 84153; 84403; 84443; G0103

== ENCOUNTER → 2023-09-04 | Outpatient (CLI) | payer OTHER, SELFPAY ==
[2023-09-04 09:05] LABS: Absolute Lymphocyte Count 2.34 X10^3/uL (0.83-4.51); Absolute Neutrophil Count 3.1 X10^3/uL (2.0-7.7); Basophil# 0.07 X10^3/uL; Basophil% 1.1 % (0-1); Eosinophils% 1.6 % (0-5); Hemoglobin 15.4 g/dL (13.0-16.5); Lymphocyte # 2.34 X10^3/ul (0.83-4.51); Mean Corp Hgb Conc 32.8 g/dL (32-36); Mean Corpuscular Hgb 32.2 pg (27.0-32.0); Mean Corpuscular Volume 98.1 fL (80-94); Monocyte# 0.48 X10^3/uL; Monocyte% 7.8 % (0-10); NRBC Flagged by Analyzer 0 % (0-5); Neutrophil # 3.13 X10^3/uL (2.7-7.7); Platelet Count 318 K/mm3 (150-450); RBC Distribution Width CV 11.8 % (11.6-14.6); Red Blood Count 4.79 M/mm3 (4.6-6.2); White Blood Count 6.2 K/mm3 (4.4-11.0)
[2023-09-04 09:32] LABS: AST(SGOT) 18 U/L (15-37); Alanine Aminotransfer ALT/SGPT 32 U/L (16-61); Albumin, Serum 3.8 g/dL (3.2-5.0); Alkaline Phosphatase 60 U/L (45-117); Anion Gap 6 (5-15); BUN 18 mg/dL (7-18); BUN/Creat Ratio 18.7 RATIO (10-20); Calcium,Total 8.9 mg/dL (8.5-10.1); Chloride 106 mmol/L (98-107); Cholesterol 215 mg/dL (200); Creatinine, Serum 0.96 mg/dL (0.70-1.30); EST Glomerular Filtration Rate 83 mL/min (>60); Est Glom Filt Rate - Afr Amer 101 mL/min (>60); Globulin 3.7 g/dL (2.2-4.2); Glucose 148 mg/dL (74-106); High Density Lipoprotein 52 mg/dL; Potassium 4.1 mmol/L (3.5-5.1); Protein, Total 7.5 g/dL (6.4-8.2); Sodium Level 139 mmol/L (136-145); Triglycerides 127 mg/dL; Very Low Density Lipoprotein 25 mg/dL (5-40)
[2023-09-04 09:39] LABS: Hemoglobin A1c 7.9 % (3.8-5.6)
== END | disposition home or self-care (01) ==
LOC: LAB 08:38
PROVIDERS: PCP Family Medicine; Referring Provider Physician Assistant Surgical; Visit Provider Physician Assistant Surgical
DX: Z01.818 Encounter for other preprocedural examination (principal)
CPT/HCPCS: 36415; 80053; 80061; 83036; 85025

== ENCOUNTER 2023-11-24 17:09 | Emergency (ER) | payer OTHER, SELFPAY ==
[2023-11-24 17:10] VITALS: BP 148/97; PULSE 124; RESP 18; TEMP 36; O2SAT 96; BMI 28.7
--- NOTE | 2023-11-24 18:15 | ED.VIS.LOWEX ---
HPI History of Present Illness HPI Narrative: Patient presents with right knee injury that occurred today. Patient states he missed a step and fell onto his right knee. Patient states he also twisted his left ankle. Patient states his left ankle pain is minimal. Patient states his pain is mainly over the right knee. Patient describes the pain as sharp. Patient states it is worse including weightbearing or ambulation. Patient denies any paresthesias or weakness. Patient denies any head injury or loss of consciousness. Patient denies any other injuries. Chief Complaint: Lower Extremity Injury Informant: patient Occured/Mechanism Mechanism/Context: Yes fall Onset/Context/Timing Onset: Today Context: Sudden Onset Timing: Continuous Quality of Pain: Sharp Location: Right knee Worsened by: Weightbearing and ambulation Relieved by: Nothing Associated Symptoms Associated Symptoms: Negative for Parasthesia, Weakness or Loss of Funtion PFSH [facility] Medical History History of diabetes mellitus Diabetes Hypertension Diverticulitis Home Medications ?Medication ?Instructions ?Recorded ?Last Taken ?Type dapagliflozin propanediol 10 mg 10 mg PO DAILY BLOOD SUGAR 04/07/22 11/24/23 History tablet (Farxiga) insulin glargine 100 unit/mL (3 50 unit subcut DAILY DIABETES 04/07/22 11/23/23 History mL) subcutaneous pen (Lantus Solostar U-100 Insulin) lisinopril 40 mg tablet 40 mg PO DAILY BLOOD PRESSURE 04/07/22 11/24/23 History naproxen 500 mg tablet 500 mg PO BID PRN #20 tabs 11/24/23 Unknown Rx Allergy/AdvReac Type Severity Reaction Status Date / Time simvastatin (From Zocor) AdvReac Pain in Verified 11/24/23 17:09 joints Surgical History Status post cholecystectomy H/O shoulder surgery Social History Smoking Status: Never smoker ROS ROS ED Constitutional Constitutional ED: Denies chills or fever(s) Eyes Eyes: Denies blurry vision or change in vision ENT ENT ED: Denies rhinorrhea or sore throat Cardiovascular Cardiovascular: Denies chest pain or palpitations Respiratory/Chest Respiratory/Chest: Denies cough or dyspnea Gastrointestinal Gastrointestinal: Denies nausea or vomiting Genitourinary Genitourinary ED: Denies dysuria or hematuria Musculoskeletal Musculoskeletal: Denies back pain or neck pain Integumentary Denies abscess or rash Neurologic Neurologic: Denies headache(s) or weakness Allergic/Immunologic Allergic/Immunologic ED: Denies mouth swelling or urticaria EXAM Physical Exam Const Vital Signs: 11/24/23 17:10 Temperature 96.8 F L Temperature Source Temporal Pulse Rate 124 H Respiratory Rate 18 Blood Pressure 148/97 H Blood Pressure Mean 114 Pulse Ox 96 Oxygen Delivery Method Room Air Positive well nourished and well developed General Appearance ED: well developed and NAD HEENT Reports moist mucous membranes Neck full ROM and supple Extremity Extremity Narrative: There is tenderness over the anterior medial aspect of the right knee. There is no effusion noted. There is no deformity noted. Range of motion was limited in flexion of the right knee secondary to pain. There is no edema or ecchymosis. There is no laxity appreciated. However, there was guarding on examination. Pedal pulses are equal bilaterally. Sensation was intact to light touch in all digits. Capillary refill was less than 2 seconds in all digits. Neuro oriented x3, CN's II-XII intact bilaterally, moves all extremities and no sensory deficits noted Sensorium / Orientation: alert Motor Exam: strength 5/5 throughout Psych mental status grossly normal MDM MDM MDM Narrative Medical decision making narrative: Differential diagnosis includes fracture, sprain, and contusion. X-rays of the right knee will be obtained to assess for fracture. Radiography Diagnostic Testing: Clinical Impression(s) from Imaging Studies Knee X-Ray 11/24/23 18:30 IMPRESSION: No evidence of acute fracture or dislocation. Electronically Signed: Trung Amezquita MD at 19:59 EDT , X-rays of the right knee were obtained. There are 4 views. On my independent interpretation, there is no acute fracture or dislocation noted. There is no joint effusion noted. There is no soft tissue swelling noted. Radiologist also interpreted the x-rays and agrees. Treatment and Re-Evaluation Narrative: Patient was given a dose of [place] here. Patient had persistent pain after this. Patient was given a dose of Naprosyn. Patient was instructed to ice and elevate the right knee. Patient was instructed to follow-up with his primary care physician in 5 to 7 days. Patient was given a prescription for Naprosyn. Patient was instructed to return if worse in any way. Patient understood and was agreeable with the plan. All questions were answered. Discharge Plan Triage Chief Complaint: Lower Extremity Injury ED Provider: Elder Mera Dx/Rx/DC Orders Clinical Impression: Contusion of right knee, Fall Instructions: ED Contusion, Lower Extremity Prescriptions: New naproxen 500 mg tablet 500 mg PO BID PRN Qty: 20 0RF No Action insulin glargine [Lantus Solostar U-100 Insulin] 100 unit/mL (3 mL) insulin pen 50 unit SUBCUT DAILY Patient Comments: INJECT 30 UNITS SUBCUTANEOUSLY AT BEDTIME lisinopril 40 mg tablet 40 mg PO DAILY Patient Comments: TAKE 1 TABLET BY MOUTH EVERY DAY dapagliflozin propanediol [Farxiga] 10 mg tablet 10 mg PO DAILY Patient Comments: TAKE 1 TABLET BY MOUTH EVERY DAY Primary Care Provider: Song Christensen Referrals: Song Christensen MD [Primary Care Provider] - 5-7 Days Print Language: Croatian Disposition Disposition: Home, Self Care
[2023-11-24] MEDS: HYDROcodone Bitartrate/Apap 5/325 Tablet PO (18:26)
--- NOTE | 2023-11-24 18:30 | RAD_ITS ---
INDICATION: Injury/Pain EXAMINATION/TECHNIQUE: X-RAY - RIGHT XR Knee Complete 4 Views or More 4 VIEWS COMPARISON: No relevant prior comparison study available FINDINGS: SOFT TISSUES: No soft tissue swelling or gas. No radiopaque foreign body. BONES/JOINTS: No acute fracture or subluxation.. Normal alignment. Preservation of the joint space.. No sclerotic or destructive changes observed. RAD/Knee 4 or More Views IMPRESSION: No evidence of acute fracture or dislocation. Electronically Signed: Trung Amezquita MD at 19:59 EDT ,
[2023-11-24] MEDS: Naproxen 500 MG Tablet PO (19:43)
[2023-11-24 20:53] VITALS: BP 142/78; PULSE 82; RESP 17; TEMP 36.3; O2SAT 97
== END 2023-11-24 20:54 | disposition home or self-care (01) ==
PROVIDERS: Emergency Provider Emergency Medicine; PCP Family Medicine; Visit Provider Emergency Medicine
DX: S80.01XA Contusion of right knee, initial encounter (principal); E11.9 Type 2 diabetes mellitus without complications; Z79.4 Long term (current) use of insulin; I10 Essential (primary) hypertension; Z79.899 Other long term (current) drug therapy; W10.9XXA Fall (on) (from) unspecified stairs and steps, initial encounter
CPT/HCPCS: 73564; 99282

== ENCOUNTER 2023-12-09 10:00 | Outpatient (RCR) | payer OTHER, SELFPAY ==
--- NOTE | 2023-10-26 07:37 | HP.OTEVAL ---
Patient's Visit Information Visit Information Visit Information: LOUIS MOREIRA is a 62 year old M, referred to Occupational Therapy by Dr. 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 Date of Evaluation: 10/25/23 Occupational Therapist: Kia Kumar, MEGANR/Kory, CHT Subjective Subjective: This 62 year old male arrives with dx of osteoarth of first carpometacarp joint, R hand. Cmc arthroplasty 09/14/23, splint for 2 weeks and cast for 4 weeks, cast removed 10/14/23. 5 weeks 6 days s/p. Pt presents with limited ROM, strength of R hand/wrist. PT not currently working- works at [employer]. 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 Pt able to drive. 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 Pain is level 3 and pain is at worst when eating w/ R hand. ADLs Comments: pts is assisting pt with ADLs and IADLs- pt does want to return to mowing his grass with a zero turn mower soon. Pain R wrist: Current Pain Intensity: 3 Objective Objective/Observation: pt arrives wearing R wrist brace. ROM Wrist: R 35/10 L 50/55 CMC: R 0 left 15* MP: R 10* supporting CMC Left 50* IP: R 30* left 50* ROM Comments: Deviation R radial 2 R ulnar 25 L radial 25 L ulnar 30 Strength Lawyer: L 80# R not tested Lateral Pinch: L 18# R not tested Tripod Pinch: L 16# R not tested Strength Comments: will test right skein straightener strength at later date Sensation Sensation Comments: denies Quick DASH-Disab of Arm,Shoulder& Hand Quick DASH Score: 54.5450 Goals Goal:100% adherence to protocol: Yes Comment: dr bianchi cmc arthroplasty guidelines Goal:Daily scar massage when approriate: Yes Goal:ROM equal to unaffected hand: Yes Goal:Lawyer/Pinch strength at least 75% of unaffected hand: Yes Comment: will not initiate until week 6-8/dr diaz Goal:No pain with affected hand use: Yes Goal:Full use of affected hand in daily activities including work: Yes Goal:Decrease scar hypersensitivity: Yes Other Goal: QuickDash pt will improve QuickDash score by 30 points or more to increase I in daily functional activities w/ R UE. Orthosis pt will demo understanding of orthosis precautions and use by end of first session. Rehabilitation General Assessment: pt presenting s/p 5 weeks 6 days from R cmc arthroplasty. 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 Pt provided with orthosis and HEP for wrist flex/ex, thumb flexion, thumb opposition and wrist/hand ergonomics. Pt would benefit from skilled OT services 1-2x a week for 8 weeks to address above impairments. Pt demo good understanding with use of splint and HEP. Therapy session was directly supervised and doc. approved by Kia Kumar OTR/Kory,CHT. Rehabilitation Potential: Good Anticipated Interventions Anticipated Interventions: A/AAROM/PROM, Strengthening, Scar Care, Modalities, Orthoses, Joint Protection/Energy Conservation, Ergonomic Education, Fine Motor Coord/Osiel, Education re assistive Equipment, Education re Diagnosis and Home Program Visit Plan Frequency: 1-2x /Week Duration: 2 Months General Plan: Begin Short arch wrist ROM ( pain free) week 4 Begin MP and IP thumb flexion and extension with cmc SUPPORTED OK for Full wrist ROM Week 6 Begin gentle thumb CMC ROM PROM of wrist Pre-angélica hand based thumb orthosis of pts choice for daytime /night Begin retraining of stable CMC position. Week 7 20-30* of MP flexion is adequate * does not want HYPEREXTENSION at the MP IF there is less than 20-30* of MP flexion, can begin gentle PORM for MP flexion only supporting CMC Week 10 if pt is progressing with finger and wrist motion and is able to demonstrate ability to maintain a stable thumb, may begin hand strengthening. If thumb stability in not achieved at this time * HOLD * on strengthening until week 12 s/p ALL Strengthening is to be performed as tolerated and pain free TEXT: Thank you for the opportunity to evaluate your patient. For Medicare and Medicare HMO plans, please review the plan of care and approve it. It will need to be FAXED BACK to us at [phone] for Medicare purposes. Please let me know if there are questions or concerns regarding this plan of care. Physician Signature: Date:
--- NOTE | 2023-12-21 14:41 | HP.OTDCSUM ---
Discharge Summary D/C Summary: It has been my pleasure to treat LOUIS MOREIRA under orders from Dr. 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 Please see the following information for a summary of their discharge status. Overall Improvement % Improvement: 90 Objective Objective/Function: L angle dozer operator strength 80# R angle dozer operator strength 63# (increase from 45#) L lat pinch 20# L tripod 17# R lat pinch 10# R tripod 8# pt has made great gains with his strength and at this time has met OT goals . pt agree to D/C. Goals Patient Goals: Regain Strength, Decrease Pain, Return to Work, Improve Fine Motor Skills, Use Hand/Wrist/Arm Normally Again, Increase ROM, Be More Independent in ADLS, Resume Former Household Responsibilities (Cooking,Cleaning,Yard, etc.) and Resume Hobbies Goal:100% adherence to protocol: Yes Goal Progress: Goal Met Goal:Daily scar massage when approriate: Yes Goal Progress: Goal Met Goal:ROM equal to unaffected hand: Yes Goal Progress: Goal Met Goal:Chronic Disease Manager/Pinch strength at least 75% of unaffected hand: Yes Goal:No pain with affected hand use: Yes Goal Progress: Goal Met Goal:Full use of affected hand in daily activities including work: Yes Goal Progress: Goal Met Goal:Decrease scar hypersensitivity: Yes Goal Progress: Goal Met Other Goal: QuickDash pt will improve QuickDash score by 30 points or more to increase I in daily functional activities w/ R UE. Orthosis pt will demo understanding of orthosis precautions and use by end of first session. Plan Plan: D/C D/C Information Discharge Comments: pt ready to be discharged at this time. pt has made significant gains and tolerated therapy well. pt to continue HEP and agrees to POC. d/c sentence: If there are questions or concerns regarding this patient's occupational therapy, please fell free to call me at [phone]. Thank you for the referral of this patient. Sincerely, Kia Kumar, OTR/L, CHT
== END 2023-12-09 19:00 | disposition home or self-care (01) ==
LOC: OT 10:00
PROVIDERS: PCP Family Medicine; Referring Provider Student in an Organized Health Care Education/Training Program; Visit Provider Student in an Organized Health Care Education/Training Program
DX: M18.11 Unilateral primary osteoarthritis of first carpometacarpal joint, right hand (principal)
CPT/HCPCS: 97035; 97110; 97140; 97165; 97530; 97760

== ENCOUNTER → 2024-05-12 | Outpatient (CLI) | payer MEDICARE, OTHER, SELFPAY ==
[2024-05-12 11:05] LABS: AST(SGOT) 13 U/L (15-37); Alanine Aminotransfer ALT/SGPT 28 U/L (16-61); Albumin, Serum 3.7 g/dL (3.2-5.0); Alkaline Phosphatase 66 U/L (45-117); Anion Gap 7 (5-15); BUN 12 mg/dL (7-18); BUN/Creat Ratio 15.1 RATIO (10-20); Calcium,Total 8.7 mg/dL (8.5-10.1); Chloride 106 mmol/L (98-107); Cholesterol 238 mg/dL (200); Creatinine, Serum 0.79 mg/dL (0.70-1.30); EST Glomerular Filtration Rate 104 mL/min (>60); Est Glom Filt Rate - Afr Amer 126 mL/min (>60); Globulin 3.6 g/dL (2.2-4.2); Glucose 128 mg/dL (74-106); High Density Lipoprotein 53 mg/dL; PSA,Total - Annual Screen 2.83 ng/mL (0.00-4.00); Potassium 4.1 mmol/L (3.5-5.1); Protein, Total 7.3 g/dL (6.4-8.2); Sodium Level 142 mmol/L (136-145); Thyroid Stim Hormone (TSH) 0.663 uIU/mL (0.358-3.740); Triglycerides 81 mg/dL; Very Low Density Lipoprotein 16 mg/dL (5-40)
[2024-05-12 11:28] LABS: Vitamin B12 403 pg/mL (211-911)
[2024-05-14 15:23] LABS: Hemoglobin A1c 7.8 % (3.8-5.6)
== END | disposition home or self-care (01) ==
PROVIDERS: PCP Family Medicine; Referring Provider Family Medicine; Visit Provider Family Medicine
DX: Z00.00 Encounter for general adult medical examination without abnormal findings (principal); E11.9 Type 2 diabetes mellitus without complications; Z12.5 Encounter for screening for malignant neoplasm of prostate
CPT/HCPCS: 36415; 80053; 80061; 82043; 82607; 83036; 84153; 84403; 84443; G0103

== ENCOUNTER 2024-06-12 20:00 | Emergency (ER) | payer MEDICARE, OTHER, SELFPAY ==
[2024-06-12 20:02] VITALS: BP 189/84; PULSE 103; RESP 15; TEMP 36.8; O2SAT 99; BMI 29.8
--- NOTE | 2024-06-12 21:36 | EDS_ITS ---
HPI HPI - GI History of Present Illness Chief Complaint: GI Bleed Narrative Narrative: 63-year-old male who denies significant past medical history although has had remote partial colectomy for perforated diverticulitis presents with lower GI bleeding that he experienced a few hours ago. He states that his primary care provider had him do Cologuard. He was Hemoccult positive. He is set up to have colonoscopy performed in about a week. However, he states he came home from work today, approximately 4 hours ago, felt like he had to have a bowel movement, and had a bowel movement that consisted of brown stool and bright red blood. He is no longer having any rectal bleeding. He feels slightly lightheaded but denies any chest pain or shortness of breath. No abdominal pain. While he does not take a blood thinner, he takes an NSAID for his arthritis. He presents today because of the 1 episode of bright red blood in the lightheadedness. PFSH PFSH Medical History History of diabetes mellitus Diabetes Hypertension Diverticulitis Home Medications ?Medication ?Instructions ?Recorded ?Last Taken ?Type insulin glargine 100 unit/mL (3 40 unit subcut DAILY D IABETES 04/07/22 11/23/23 History mL) subcutaneous pen (Lantus Solostar U-100 Insulin) lisinopril 40 mg tablet 40 mg PO DAILY BLOOD PRESSUR E 04/07/22 11/24/23 History insulin lispro 100 unit/mL 6 unit subcut QHS 06/12/24 Unknown History subcutaneous half-unit pen (Humalog Jose R KwikPen (U-100)) metformin 500 mg tablet,extended 1,000 mg PO DAILY 01/27 Unknown History release 24 hr omeprazole 40 mg capsule,delayed 40 mg PO DAILY #30 ca ps 06/12/24 Unknown Rx release venlafaxine 150 mg 150 mg PO DAILY 06/12/24 Unk nown History capsule,extended release 24 hr Allergy/AdvReac Type Severity Reaction Status Date / Time simvastatin (From Zocor) AdvReac Pain in Verified 06/12/24 20:02 joints Surgical History Status post cholecystectomy H/O shoulder surgery Social History Smoking Status: Never smoker ROS ROS ED ROS Narrative Review of systems positive for bright red blood per rectum with mild lighthe adedness. No chest pain or shortness of breath. No nausea or vomiting. No diarrhea. No abdominal pain. EXAM Physical Exam Narrative Exam Narrative: Afebrile. Vital signs noted. Nontoxic-appearing. HEENT examination is grossly unremarkable with no central cyanosis. No subconjunctival anemia. Cardiovascular examination reveals a regular rate and rhythm, lungs clear to auscultation bilaterally. Abdomen is soft and nontender without guarding or rebound. Positive bowel sounds. Neurological examination nonfocal and nonlateralizing. Const Vital Signs: 06/12/24 20:02 06/12/24 22:15 06/12/24 22:16 Temperature 98.3 F Temperature Source Temporal Pulse Rate 103 H 86 Pulse Rate [Lying] 85 Pulse Rate [Sitting (for 1 minute prior to obtaining)] 85 Pulse Rate [Standing (for 1 minute prior to obtaining)] 90 Respiratory Rate 15 17 Blood Pressure 189/84 H Blood Pressure [Lying] 163/92 H Blood Pressure [Sitting (for 1 minute prior to obtaining)] 164/94 H Blood Pressure [Standing (for 1 minute prior to obtaining)] 139/89 H Blood Pressure Mean 119 Blood Pressure Mean [Lying] 115 Blood Pressure Mean [Sitting (for 1 minute prior to obtaining)] 117 Blood Pressure Mean [Standing (for 1 minute prior to obtaining)] 105 Pulse Ox 99 98 Oxygen Delivery Method Room Air Room Air MDM MDM MDM Narrative Medical decision making narrative: Differential diagnosis includes but not limited to diverticular bleed versus AV malformation versus internal hemorrhoid. I doubt brisk upper GI bleed as he has not had any hematemesis. He has no abdominal pain. I do not feel that he requires CT imaging currently. I will obtain orthostatic vital signs given his lightheadedness. Baseline laboratories the form of CBC, CMP, and lipase were obtained per protocol. I will obtain an EKG as well. EKG was obtained and interpreted by myself independently as normal sinus rhythm at 89 bpm without ectopy or acute ST changes. No STEMI. I reviewed his laboratory work, and he has normal white count of 10.6 with hemoglobin stable at 12.4, hematocrit 36.7, platelet count normal at 305. Sodium is normal at 139 with potassium 4.0 and BUN slightly elevated 26 with creatinine 0.76. LFTs grossly unremarkable. Lipase normal at 33. Orthostatics were negative for any significant drop in his blood pressure, and there was no significant increase in his heart rate or tachycardia. Chaperoned rectal examination did show bright red blood that was dried around the anus, and on digital rectal examination he did have dark brown to black stool, but no active bleeding. I discussed patient with Dr. Enrique with gastroenterology. It was felt that as the patient has not had another bowel movement and has no active bleeding on his rectal examination currently that he could be discharged to follow-up for o utpatient endoscopy. The patient feels well and through shared decision making would like to go home. I feel that he is probably having more of a stable lower GI bleed. He will return with any increased bleeding, increased lightheadedness, new or worsening symptoms. Dr. Enrique did suggest that he be started on a proton pump inhibitor and he was given his first dose here in the emergency department and prescription written to take 40 mg daily. Follow-up with gastroenterology. Return instructions reviewed. Disposition discharged home in stable condition. History & Record Review Discussion w/independent historian: Patient and Family Lab Data Attestation: I reviewed the patient's lab results. Labs: Laboratory Results - last 24 hr 06/12/24 21:41 WBC 10.6 RBC 3.82 L Hgb 12.4 L Hct 36.7 L MCV 96.1 H MCH 32.5 H MCHC 33.8 RDW Std Deviation 42.2 RDW Coeff of Krystal 12.1 Plt Count 305 MPV 9.5 Immature Gran % (Auto) 0.800 Neut % (Auto) 74.1 H Lymph % (Auto) 16.1 L [place] % (Auto) 6.9 Eos % (Auto) 1.4 Baso % (Auto) 0.7 Absolute Neuts (auto) 7.9 H Absolute Lymphs (auto) 1.71 Nucleated RBC % 0 Sodium 139 Potassium 4.0 Chloride 105 Carbon Dioxide 20.8 L Anion Gap 13 BUN 26 H Creatinine 0.76 Estim Creat Clear Calc 93.55 Est GFR (MDRD) Non-Af 100 BUN/Creatinine Ratio 34.2 H Glucose 206 H Calcium 8.8 Total Bilirubin 0.24 AST 19 ALT 21 Alkaline Phosphatase 76 Total Protein 6.5 Albumin 4.0 Globulin 2.6 Albumin/Globulin Ratio 1.5 Lipase 33 Management Discussion w/another healthcare provider: Order Takers Supervisor (Dr. Enrique, gastroenterology) Discharge Plan Triage Chief Complaint: GI Bleed ED Provider: Nikko Arango Dx/Rx/DC Orders Clinical Impression: Rectal bleeding Instructions: Understanding Rectal Bleeding, ED Lower GI Bleeding (Stable) Prescriptions: New omeprazole 40 mg capsule,delayed release(DR/EC) 40 mg PO DAILY Qty: 30 0RF No Action insulin glargine [Lantus Solostar U-100 Insulin] 100 unit/mL (3 mL) insulin pen 40 unit SUBCUT DAILY Patient Comments: INJECT 30 UNITS SUBCUTANEOUSLY AT BEDTIME lisinopril 40 mg tablet 40 mg PO DAILY Patient Comments: TAKE 1 TABLET BY MOUTH EVERY DAY venlafaxine 150 mg capsule,extended release 24hr 150 mg PO DAILY Patient Comments: [NO ORIGINAL SIG] metformin 500 mg tablet extended release 24 hr 1,000 mg PO DAILY insulin lispro [Humalog Jose R KwikPen U-100] 100 unit/mL insulin pen, half- unit 6 unit subcut QHS Stand Alone Forms: ED Work / School Excuse Primary Care Provider: Song Christensen Referrals: tor [Other] Song Christensen MD [Primary Care Provider] - Shad Araya MD [Non-Staff] - Activity Restrictions/Additional Instructions: Return to the emergency department with increased rectal bleeding, new or worsening symptoms. 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 Take your proton pump inhibitor daily. Print Language: Mongolian Disposition Disposition: Home, Self Care
--- NOTE | 2024-06-12 21:36 | EKG12_ITS ---
Test Reason : DYSRHYTHMIA Blood Pressure : */* mmHG Vent. Rate : 89 BPM Atrial Rate : 89 BPM P-R Int : 138 ms QRS Dur : 92 ms QT Int : 382 ms P-R-T Axes : 1 -8 22 degrees QTcB Int : 464 ms Normal sinus rhythm Incomplete right bundle branch block Borderline ECG Confirmed by Kingston Gonzalez ([id number]), editor in chief newspaper TOM PEDROZA ([id number]) on 06/13/2024 11:01:41 AM Referred By: Confirmed By: Kingston Gonzalez
[2024-06-12 22:03] LABS: Absolute Lymphocyte Count 1.71 X10^3/uL (0.83-4.51); Absolute Neutrophil Count 7.9 X10^3/uL (2.0-7.7); Basophil# 0.07 X10^3/uL; Basophil% 0.7 % (0-1); Eosinophil# 0.15 X10^3/uL; Eosinophils% 1.4 % (0-5); Hematocrit 36.7 % (40-54); Hemoglobin 12.4 g/dL (13.0-16.5); Lymphocyte # 1.71 X10^3/ul (0.83-4.51); Lymphocyte % 16.1 % (19-41); Mean Corp Hgb Conc 33.8 g/dL (32-36); Mean Corpuscular Hgb 32.5 pg (27.0-32.0); Mean Corpuscular Volume 96.1 fL (80-94); Mean Platelet Vol. 9.5 fl (6.2-12.0); Monocyte# 0.73 X10^3/uL; Monocyte% 6.9 % (0-10); NRBC Flagged by Analyzer 0 % (0-5); Neutrophil # 7.87 X10^3/uL (2.7-7.7); Neutrophil % 74.1 % (47-70); Platelet Count 305 K/mm3 (150-450); RBC Distribution Width CV 12.1 % (11.6-14.6); RBC Distribution Width SD 42.2 fl (35.1-43.9); Red Blood Count 3.82 M/mm3 (4.6-6.2); White Blood Count 10.6 K/mm3 (4.4-11.0)
[2024-06-12 22:15] VITALS: PULSE 86; RESP 17; O2SAT 98
[2024-06-12 22:16] VITALS: BP 139/89; BP 163/92; BP 164/94; PULSE 85; PULSE 90
[2024-06-12 22:33] LABS: ALB/GLOB Ratio 1.5 RATIO (0.9-2.4); AST(SGOT) 19 U/L (<=37); Alanine Aminotransfer ALT/SGPT 21 U/L (<=46); Alkaline Phosphatase 76 U/L (40-129); Anion Gap 13 (5-15); BUN 26 mg/dL (4-19); BUN/Creat Ratio 34.2 RATIO (10-20); Calcium,Total 8.8 mg/dL (7.6-11.0); Carbon Dioxide 20.8 mmol/L (21.0-32.0); Chloride 105 mmol/L (98-108); Creatinine, Serum 0.76 mg/dL (0.70-1.20); EST Glomerular Filtration Rate 100 (>60); Estimated Creatinine Clearance 93.55 ml/min (50-250); Globulin 2.6 g/dL (2.2-4.2); Glucose 206 mg/dL (70-99); Lipase 33 U/L (13-75); Protein, Total 6.5 g/dL (5.9-8.4); Sodium Level 139 mmol/L (133-145); Total Bilirubin 0.24 mg/dL (0.00-1.30)
[2024-06-12 23:35] VITALS: BP 161/87; PULSE 79; RESP 19; TEMP 37.1; O2SAT 99
[2024-06-12] MEDS: Pantoprazole Sodium 40 MG Tablet PO (23:35)
== END 2024-06-12 23:37 | disposition home or self-care (01) ==
PROVIDERS: Emergency Provider Emergency Medicine; PCP Family Medicine; Visit Provider Emergency Medicine
DX: K62.5 Hemorrhage of anus and rectum (principal); E11.9 Type 2 diabetes mellitus without complications; Z79.4 Long term (current) use of insulin; I10 Essential (primary) hypertension; Z90.49 Acquired absence of other specified parts of digestive tract; Z79.84 Long term (current) use of oral hypoglycemic drugs; Z79.899 Other long term (current) drug therapy
CPT/HCPCS: 80053; 82274; 83690; 85025; 93005; 99284; A4216

== ENCOUNTER → 2025-01-19 | Outpatient (CLI) | payer MEDICARE, OTHER, SELFPAY ==
--- NOTE | 2025-01-19 08:20 | EKG12_ITS ---
Test Reason : PREOP Blood Pressure : */* mmHG Vent. Rate : 100 BPM Atrial Rate : 100 BPM P-R Int : 120 ms QRS Dur : 88 ms QT Int : 360 ms P-R-T Axes : 61 7 37 degrees QTcB Int : 464 ms Normal sinus rhythm Normal ECG Confirmed by ERINN SHI, MAI ([id number]), film or videotape editor TEAGAN LAYTON ([id number]) on 01/22/2025 9:28:08 AM Referred By: Anton Hall Confirmed By: MAI PLASENCIA MD
--- OUTSIDE RECORDS SUMMARY | 2025-01-19 08:26 | XMS RPT_ITS | CCD ---
Author Organization [facility] Care Team Providers Care Retail Custodial Associate Name Role Phone Dr. Gutierrez Christensen Primary Care Provider Dr. Frank Parham Emergency Provider Dr. Kingston Ortiz Attending Provider Dr. Kingston Ortiz Admit Provider [phone] Kingston Ortiz Other Provider Dr. Gutierrez Christensen Referring Provider Fermin SHI, Dr. Zuleta Primary Care Provider Dr. Song Christensen MD Attending Provider Dr. Song Christensen MD Referring Provider [phone] Nikko Arango MD Emergency Provider Song Christensen Primary Care Unavailable Song Christensen Attending Unavailable Song Christensen Referring Unavailable Nikko Arango Attending Unavailable Snog Christensen Primary Care Unavailable Song Christensen Primary Care Unavailable Anton Hall Attending Unavailable Anton Hall Referring Unavailable Allergies Allergy Classification Reported Allergen(s) Allergy Type Date of Onset Reaction(s) Facility (6 sources) Simvastatin Drug Allergy 7 Pain in joints [facility] (1 source) Simvastatin Drug Allergy 5 [facility] Repository Medications Current Medications Medication Drug Class(es) Dates Sig (Normalized) Sig (Original) aspirin 81 mg chewable tablet (1 source) Platelet Aggregation Inhibitor, Nonsteroidal Anti-inflammatory Drug Start: 2014 take 81 mg by mouth once daily Aspirin Active 81 MG PO DAILY@0800 30 December 21, 2014 11:00pm Exenatide Microspheres (Bydureon) 2 mg/0.65 mL Pen Injector (1 source) Start: 02-06-2021 Exenatide Microspheres (Bydureon) 2 mg/0.65 mL Pen Injector Active 2 MG SC SA February 05, 2021 11:00pm 3 ml insulin glargine 100 unt/ml pen injector (5 sources) Insulin Analog Start: 04-07-2022 Insulin Glargine (Lantus Solostar U-100 Insulin) 100 unit/mL (3 mL) insulin pen Active 40 U SC DAILY April 07, 2022 1:00am Start: 04-07-2022 Insulin Glargi ne (Lantus Solostar U-100 Insulin) 100 unit/mL (3 mL) insulin pen Active 30 UNIT SC AT BEDTIME April 07, 2022 1:00am 0.5 unt doses 3 ml insulin lispro 100 unt/ml pen injector (1 source) Insulin Analog Start: 06-12-2024 Insulin Lispro (Humalog Jose R Kwikpen U-100) 100 unit/mL insulin pen, half-unit Active 6 U SC AT BEDTIME June 12, 2024 12:00am lisinopril 40 mg oral tablet (6 sources) Angiotensin Converting Enzyme Inhibitor Start: 04-07-2022 take 1 tablet by mouth once daily Lisinopril 40 mg tablet Active 40 mg PO DAILY April 07, 2022 1:00am Start: 2014 take 20 mg by mouth once daily Lisinopril Active 20 MG PO DAILY December 21, 2014 11:00pm 24 hr metFORMIN hydrochlorid e 500 mg extended release oral tablet (7 sources) Biguanide Start: 06-12-2024 Metformin 500 mg tablet extended release 24 hr Active 1000 mg PO DAILY June 12, 2024 12:00am Start: 04-07-2022 End: 04-09-2022 take 1 tablet by mouth twice daily Metformin 500 mg tablet extended release 24 hr Discontinued 500 mg PO TWICE A DAY April 07, 2022 1:00am April 09, 2022 10:14am Start: 04-14-2013 take 500 mg by mouth twice daily at mealtime Metformin Active 500 MG PO TWICE DAILY WITH MEALS April 14, 2013 12:00am omeprazole 40 mg delayed release oral capsule (1 source) Proton Pump Inhibitor Start: 06-12-2024 take 1 capsule by mouth once daily Omeprazole 40 mg capsule,delayed release(DR/EC) Active 40 mg PO DAILY June 12, 2024 12:00am tamsulosin hydrochloride 0.4 mg oral capsule (1 source) alpha-Adrenergic Albertina Start: 04-09-2022 take 1 capsule by mouth at bedtime Tamsulosin (Flomax) 0.4 mg capsule Active 0.4 MG PO AT BEDTIME April 09, 2022 12:00am 24 hr venlafaxine 150 mg extended release oral capsule (7 sources) Serotonin and Norepinephrine Reuptake Inhibitor Start: 06-12-2024 take 1 capsule by mouth once daily Venlafaxine 150 mg capsule,extended release 24hr Active 150 mg PO DAILY June 12, 2024 12:00am Start: 04-07-2022 End: 11-24-2023 take 1 capsule by mouth once daily Venlafaxine 150 mg capsule,extended release 24hr Discontinued 150 mg PO DAILY April 07, 2022 1:00am November 24, 2023 5:19pm Start: 04-14-2013 take 150 mg by mouth once daily Venlafaxine Active 150 MG PO DAILY April 14, 2013 12:00am Completed/Discontinued Medications Medication Drug Class(es) Dates Sig (Normalized) Sig (Original) amLODIPine 5 mg oral tablet (4 sources) Dihydropyridine Calcium Channel Albertina Start: 04-24-2022 End: 11-24-2023 take 1 tablet by mouth once daily Amlodipine 5 mg tablet Discontinued 5 mg PO DAILY April 24, 2022 1:00am November 24, 2023 5:18pm Start: 04-14-2013 take 5 mg by mouth once daily Amlodipine Active 5 MG PO DAILY April 14, 2013 12:00am dapagliflozin 10 mg oral tablet (5 sources) Sodium-Glucose Cotransporter 2 Inhibitor Start: 04-07-2022 End: 06-12-2024 take 1 tablet by mouth once daily Dapagliflozin Propanediol (Farxiga) 10 mg tablet Discontinued 10 mg PO DAILY April 07, 2022 1:00am June 12, 2024 10:20pm ezetimibe 10 mg oral tablet (8 sources) Dietary Cholesterol Absorption Inhibitor Start: 04-24-2022 End: 11-24-2023 take 1 tablet by mouth once daily Ezetimibe 10 mg tablet Discontinued 10 mg PO DAILY April 24, 2022 1:00am November 24, 2023 5:19pm Start: 04-07-2022 End: 04-09-2022 take 1 tablet by mouth once daily Ezetimibe 10 mg tablet Discontinued 10 mg PO DAILY April 07, 2022 1:00am April 09, 2022 10:15am hydroCHLOROthiazide 25 mg / lisinopril 20 mg oral tablet (6 sources) Thiazide Diuretic, Angiotensin Converting Enzyme Inhibitor Start: 04-14-2013 End: 2014 take 1 tablet by mouth once daily Lisinopril/Hydrochlorothiazide (Zestoretic 20/25 Tablet) 1 TABLET tablet Discontinued 1 {tbl} PO DAILY April 14, 2013 1:00am 2014 7:44am naproxen 500 mg oral tablet (1 source) Nonsteroidal Anti-inflammator y Drug Start: 11-24-2023 End: 06-12-2024 take 1 tablet by mouth twice daily as needed Naproxen 500 mg tablet Discontinued 500 mg PO TWICE DAILY NEEDED November 24, 2023 12:00am June 12, 2024 10:20pm pioglitazone 45 mg oral tablet (6 sources) Peroxisome Proliferator Receptor alpha Agonist, Peroxisome Proliferator Receptor gamma Agonist, Thiazolidinedion e Start: 04-07-2022 End: 04-09-2022 take 1 tablet by mouth once daily Pioglitazone 45 mg tablet Discontinued 45 mg PO DAILY April 07, 2022 1:00am April 09, 2022 10:15am Start: 12-21-2014 take 30 mg by mouth once daily Pioglitazone Active 30 MG PO DAILY December 20, 2014 11:00pm Problems Active Problems Problem Classification Problem Date Documented Da te Episodic/Chronic Abdominal pain (9 sources) Abdominal pain; Translations: [Unspecified abdominal pain] Episodic Biliary tract disease (9 sources) Acute cholecystitis; Translations: [Acute cholecystitis] Episodic Diabetes mellitus without complication (6 sources) Type 2 diabetes mellitus; Translations: [Type 2 diabetes mellitus without complications] 10-10-2016 Chronic Diseases of white blood cells (9 sources) Leukocytosis; Translations: [Elevated white blood cell count, unspecified] Chronic E Codes: Fall (1 source) Fall; Translations: [Unspecified fall, initial encounter] 12-02-2023 Episodic Essential hypertension (6 sources) Hypertensive disorder; Translations: [Essential (primary) hypertension] 10-10-2016 Chronic Nonspecific chest pain (6 sources) Chest pain; Translations: [Chest pain, unspecified] 10-10-2016 Episodic Other circulatory disease (3 sources) Low blood pressure; Translations: [Hypotension, unspecified] 04-24-2022 Episodic Other nutritional; endocrine; and metabolic disorders (5 sources) H/O: diabetes mellitus; Translations: [Personal history of other endocrine, nutritional and metabolic disease] 04-17-2022 Episodic Other nutritional; endocrine; and metabolic disorders (2 sources) Personal history of other endocrine, nutritional and metabolic disease; Translations: [Personal history of other endocrine, metabolic, and immunity disorders] Episodic Residual codes; unclassified (5 sources) Acquired absence of other specified parts of digestive tract; Translations: [Other acquired absence of organ] Episodic Superficial injury; contusion (1 source) Contusion of right knee; Translations: [Contusion of right knee, initial encounter] 12-02-2023 Episodic Syncope (6 sources) Syncope and collapse; Translations: [Syncope and collapse] 04-24-2022 Episodic Viral infection (6 sources) Disease caused by 2019-nCoV; Translations: [COVID-19] 02-05-2021 Episodic Past or Other Problems Problem Classification Problem Date Documented Da te Episodic/Chronic Gastrointestinal hemorrhage (2 sources) Rectal hemorrhage; Translations: [Hemorrhage of anus and rectum] Onset: 06-21-2024 06-12-2024 Episodic Results Test Name Value Interpretation Reference Range Facility 12 Lead EKGon 06-12-2024 12 Lead EKG [facility] [address] [place] [address] 12 Lead EKG 06/12/24 2144 MR#: [id number] Acct: [id number] Name: FELICEROSALOUIS R Rep #: [id number] : 1960 63 From: Kingston Gonzalez MD Attending Dr: Status: DEP ER Ordering Dr: Nikko Arango MD Date: 06/12/24 Location: ED Sex: M C Admitted: Test Reason : DYSRHYTHMIA Blood Pressure : */* mmHG Vent. Rate : 89 BPM Atrial Rate : 89 BPM P-R Int : 138 ms QRS Dur : 92 ms QT Int : 382 ms P-R-T Axes : 1 -8 22 degrees QTcB Int : 464 ms Normal sinus rhythm Incomplete right bundle branch block Borderline ECG Confirmed by Kingston Gonzalez ([id number]), writer editor TOM PEDROZA ([id number]) on 06/13/2024 11:01:41 AM Referred By: Confirmed By: Kingston Gonzalez 06/13/24 1101 Date Kingston Gonzalez MD CC: Dr. Nikko Arango MD; Dr. Song Chrisetnsen MD Signed Normal [facility] Absolute neutrophil countOrd ered By: Nikko Arango on 06-12-2024 Neutrophils (Bld) [#/Vol] 7.9 10*3/uL High 2.0-7.7 [facility] Anion gap in Serum or Plasma Ordered By: Nikko Arango on 06-12-2024 Anion gap [Moles/Vol] 13 mmol/L 5-15 [facility] BUN/creatinine ratioOrdered By: Nikko Arango on 06-12-2024 Urea nitrogen/Creatinine [Mass ratio] 34.2 mg/mg High 10- [facility] Basophil percentageOrdered B y: Nikko Arango on 06-12-2024 Basophils/100 WBC (Bld) 0.7 % 0-1 [facility] Bilirubin, totalOrdered By: Nikko Arango on 06-12-2024 Bilirubin [Mass/Vol] 0.24 mg/dL 0.00-1.30 [facility] CBC W/Diff, Automatedon 06-03 Absolute Lymph 1.71 X10 3/uL Normal 0.83-4.51 [facility] Comment on above: Performed By: #### L 501.9985, L502.0500, L500.4050, L500.4100, L501.9520, L501.9910, L503.0105, L509.3000 #### [facility] [address] [place], [address] Absolute Neut 7.9 X10 3/uL High 2.0-7.7 [facility] Comment on above: Performed By: #### L 501.9985, L502.0500, L500.4050, L500.4100, L501.9520, L501.9910, L503.0105, L509.3000 #### [facility] [address] [place], [address] Basophils/100 WBC (Bld) 0.7 % Normal 0-1 [facility] Comment on above: Performed By: #### L 501.9985, L502.0500, L500.4050, L500.4100, L501.9520, L501.9910, L503.0105, L509.3000 #### [facility] [address] [place], [address] Eosinophils/100 WBC (Bld) 1.4 % Normal 0-5 [facility] Comment on above: Performed By: #### L 501.9985, L502.0500, L500.4050, L500.4100, L501.9520, L501.9910, L503.0105, L509.3000 #### [facility] [address] [place], [address] Erythrocyte distribution width (RBC) [Ratio] 12.1 % Normal 11.6-14.6 [facility] Comment on above: Performed By: #### L 501.9985, L502.0500, L500.4050, L500.4100, L501.9520, L501.9910, L503.0105, L509.3000 #### [facility] [address] [place], [address] Hematocrit (Bld) [Volume fraction] 36.7 % Low 40-54 [facility] Comment on above: Performed By: #### L 501.9985, L502.0500, L500.4050, L500.4100, L501.9520, L501.9910, L503.0105, L509.3000 #### [facility] [address] [place], [address] Hemoglobin (Bld) [Mass/Vol] 12.4 g/dL Low 13.0-16.5 [facility] Comment on above: Performed By: #### L 501.9985, L502.0500, L500.4050, L500.4100, L501.9520, L501.9910, L503.0105, L509.3000 #### [facility] [address] [place], [address] IG% 0.800 Normal 0.0-0.9 [facility] Comment on above: Result Comment: IG% - Immature Granulocytes (promyelocytes, myelocytes and metamyelocytes) > 1% indicates that a LEFT SHIFT is Present. Performed By: #### L 501.9985, L502.0500, L500.4050, L500.4100, L501.9520, L501.9910, L503.0105, L509.3000 #### [facility] [address] [place], [address] Lymphocytes/100 WBC (Bld) 16.1 % Low 19-41 [facility] Comment on above: Performed By: #### L 501.9985, L502.0500, L500.4050, L500.4100, L501.9520, L501.9910, L503.0105, L509.3000 #### [facility] [address] [place], [address] MCH (RBC) [Entitic mass] 32.5 pg High 27.0-32.0 [facility] Comment on above: Performed By: #### L 501.9985, L502.0500, L500.4050, L500.4100, L501.9520, L501.9910, L503.0105, L509.3000 #### [facility] [address] [place], [address] MCHC (RBC) [Mass/Vol] 33.8 g/dL Normal 32-36 [facility] Comment on above: Performed By: #### L 501.9985, L502.0500, L500.4050, L500.4100, L501.9520, L501.9910, L503.0105, L509.3000 #### [facility] [address] [place], [address] MCV (RBC) [Entitic vol] 96.1 fL High 80-94 [facility] Comment on above: Performed By: #### L 501.9985, L502.0500, L500.4050, L500.4100, L501.9520, L501.9910, L503.0105, L509.3000 #### [facility] [address] [facility] [place], [address] Monocytes/100 WBC (Bld) 6.9 % Normal 0-10 [facility] Comment on above: Performed By: #### L 501.9985, L502.0500, L500.4050, L500.4100, L501.9520, L501.9910, L503.0105, L509.3000 #### [facility] [address] [place], [address] Neutrophils/100 WBC (Bld) 74.1 % High 47-70 [facility] Comment on above: Performed By: #### L 501.9985, L502.0500, L500.4050, L500.4100, L501.9520, L501.9910, L503.0105, L509.3000 #### [facility] [address] [place], [address] Nucleated RBC (Bld) [#/Vol] 0 10*3/uL Normal 0-5 [facility] Comment on above: Performed By: #### L 501.9985, L502.0500, L500.4050, L500.4100, L501.9520, L501.9910, L503.0105, L509.3000 #### [facility] [address] [place], [address] Platelet mean volume (Bld) [Entitic vol] 9.5 fL Normal 6.2-12.0 [facility] Comment on above: Performed By: #### L 501.9985, L502.0500, L500.4050, L500.4100, L501.9520, L501.9910, L503.0105, L509.3000 #### [facility] [address] [place], [address] Platelets (Bld) [#/Vol] 305 10*3/uL Normal 150-450 [facility] Comment on above: Performed By: #### L 501.9985, L502.0500, L500.4050, L500.4100, L501.9520, L501.9910, L503.0105, L509.3000 #### [facility] [place], [address] RBC (Bld) [#/Vol] 3.82 10*6/uL Low 4.6-6.2 [facility] Comment on above: Performed By: #### L 501.9985, L502.0500, L500.4050, L500.4100, L501.9520, L501.9910, L503.0105, L509.3000 #### [facility] [address] [facility] [place], [address] RDW SD 42.2 fl Normal 35.1-43.9 [facility] Comment on above: Performed By: #### L 501.9985, L502.0500, L500.4050, L500.4100, L501.9520, L501.9910, L503.0105, L509.3000 #### [facility] [address] [facility] [place] [place], [address] WBC (Bld) [#/Vol] 10.6 10*3/uL Normal 4.4-11.0 [facility] Comment on above: Performed By: #### L 501.9985, L502.0500, L500.4050, L500.4100, L501.9520, L501.9910, L503.0105, L509.3000 #### [facility] [address] [place], [address] Carbon dioxide, total [Moles /volume] in Central venous bloodOrdered By: Nikko Arango on 06-12-2024 CO2 [Moles/Vol] 20.8 mmol/L Low 21.0-32.0 [facility] Chloride assayOrdered By: Miguel Arango on 06-12-2024 Chloride [Moles/Vol] 105 mmol/L 98-108 [facility] Comprehensive Metabolic Prof ilon 06-12-2024 Albumin [Mass/Vol] 4.0 g/dL Normal 3.4-4.8 [facility] Comment on above: Performed By: #### L 501.9985, L502.0500, L500.4050, L500.4100, L501.9520, L501.9910, L503.0105, L509.3000 #### [facility] [address] [place], [address] Albumin/Globulin [Mass ratio] 1.5 {ratio} Normal 0.9-2.4 [facility] Comment on above: Performed By: #### L 501.9985, L502.0500, L500.4050, L500.4100, L501.9520, L501.9910, L503.0105, L509.3000 #### [facility] [address] [place], [address] ALK PHOS 76 U/L Normal 40-129 [facility] Comment on above: Performed By: #### L 501.9985, L502.0500, L500.4050, L500.4100, L501.9520, L501.9910, L503.0105, L509.3000 #### [facility] [address] [place], [address] ALT [Catalytic activity/Vol] 21 U/L Normal <=46 [facility] Comment on above: Performed By: #### L 501.9985, L502.0500, L500.4050, L500.4100, L501.9520, L501.9910, L503.0105, L509.3000 #### [facility] [address] [place], [address] AST [Catalytic activity/Vol] 19 U/L Normal <=37 [facility] Comment on above: Performed By: #### L 501.9985, L502.0500, L500.4050, L500.4100, L501.9520, L501.9910, L503.0105, L509.3000 #### [facility] [address] [place], [place], [id number] (633) Bilirubin [Mass/Vol] 0.24 mg/dL Normal 0.00-1.30 [facility] Comment on above: Performed By: #### L 501.9985, L502.0500, L500.4050, L500.4100, L501.9520, L501.9910, L503.0105, L509.3000 #### [facility] [address] [place], [place], [id number] (664) BUN/CRE 34.2 RATIO High 10-20 [facility] Comment on above: Performed By: #### L 501.9985, L502.0500, L500.4050, L500.4100, L501.9520, L501.9910, L503.0105, L509.3000 #### [facility] [address] [place], [address] Calcium [Mass/Vol] 8.8 mg/dL Normal 7.6-11.0 [facility] Comment on above: Performed By: #### L 501.9985, L502.0500, L500.4050, L500.4100, L501.9520, L501.9910, L503.0105, L509.3000 #### [facility] [address] [place], [address] Chloride [Moles/Vol] 105 mmol/L Normal 98-108 [facility] Comment on above: Performed By: #### L 501.9985, L502.0500, L500.4050, L500.4100, L501.9520, L501.9910, L503.0105, L509.3000 #### [facility] [address] [place], [address] CO2 [Moles/Vol] 20.8 mmol/L Low 21.0-32.0 [facility] Comment on above: Performed By: #### L 501.9985, L502.0500, L500.4050, L500.4100, L501.9520, L501.9910, L503.0105, L509.3000 #### [facility] [address] [place], [address] Creatinine [Mass/Vol] 0.76 mg/dL Normal 0.70-1.20 [facility] Comment on above: Performed By: #### L 501.9985, L502.0500, L500.4050, L500.4100, L501.9520, L501.9910, L503.0105, L509.3000 #### [facility] [address] [place], [address] ECRCL 93.55 ml/min Normal 50-250 [facility] Comment on above: Performed By: #### L 501.9985, L502.0500, L500.4050, L500.4100, L501.9520, L501.9910, L503.0105, L509.3000 #### [facility] [address] [place], [address] GAP 13 Normal 5-15 [facility] Comment on above: Performed By: #### L 501.9985, L502.0500, L500.4050, L500.4100, L501.9520, L501.9910, L503.0105, L509.3000 #### [facility] [address] [place], [address] GFR/1.73 sq M.predicted among non-blacks MDRD (S/P/Bld) [Vol rate/Area] 100 mL/min/{1.73_m2} Normal >60 [facility] Comment on above: Result Comment: mL/m in/1.73m2 CKD-EPI Creatinine Equation (2020) Performed By: #### L 501.9985, L502.0500, L500.4050, L500.4100, L501.9520, L501.9910, L503.0105, L509.3000 #### [facility] [address] [place], [address] Globulin (S) [Mass/Vol] 2.6 g/dL Normal 2.2-4.2 [facility] Comment on above: Performed By: #### L 501.9985, L502.0500, L500.4050, L500.4100, L501.9520, L501.9910, L503.0105, L509.3000 #### [facility] [address] [place], [address] Glucose [Mass/Vol] 206 mg/dL High 70-99 [facility] Comment on above: Performed By: #### L 501.9985, L502.0500, L500.4050, L500.4100, L501.9520, L501.9910, L503.0105, L509.3000 #### [facility] [address] [place], [address] Potassium [Moles/Vol] 4.0 mmol/L Normal 3.3-5.1 [facility] Comment on above: Performed By: #### L 501.9985, L502.0500, L500.4050, L500.4100, L501.9520, L501.9910, L503.0105, L509.3000 #### [facility] [address] [place], [id number] Sodium [Moles/Vol] 139 mmol/L Normal 133-145 [facility] Comment on above: Performed By: #### L 501.9985, L502.0500, L500.4050, L500.4100, L501.9520, L501.9910, L503.0105, L509.3000 #### [facility] [address] [place], [id number] T PROT 6.5 g/dL Normal 5.9-8.4 [facility] Comment on above: Performed By: #### L 501.9985, L502.0500, L500.4050, L500.4100, L501.9520, L501.9910, L503.0105, L509.3000 #### [facility] [address] [place], [id number] Urea nitrogen [Mass/Vol] 26 mg/dL High 4-19 [facility] Comment on above: Performed By: #### L 501.9985, L502.0500, L500.4050, L500.4100, L501.9520, L501.9910, L503.0105, L509.3000 #### [facility] [address] [place], [id number] Emergency Department Summary on 06-12-2024 Emergency Department Summary [facility] Medical Records Department [address] [place] [id number] Emergency Department Summary 06/12/24 MR#: [id number] Acct: [id number] Name: LOUIS MOREIRA Rep #: [id number] : 1960 63 From: Nikko Arango MD PCP: Dr. Song Christensen MD Status:REG ER Location: ED HPI HPI - GI History of Present Illness Chief Complaint: GI Bleed Narrative Narrative: 63-year-old male who denies significant past medical history although has had remote partial colectomy for perforated diverticulitis presents with lower GI bleeding that he experienced a few hours ago. He states that his primary care provider had him do Cologuard. He was Hemoccult positive. He is set up to have colonoscopy performed in about a week. However, he states he came home from work today, approximately 4 hours ago, felt like he had to have a bowel movement, and had a bowel movement that consisted of brown stool and bright red blood. He is no longer having any rectal bleeding. He feels slightly lightheaded but denies any chest pain or shortness of breath. No abdominal pain. While he does not take a blood thinner, he takes an NSAID for his arthritis. He presents today because of the 1 episode of bright red blood in the lightheadedness. [facility] Medical History History of diabetes mellitus Diabetes Hypertension Diverticulitis Home Medications ???Medication ???Instructions ???Recorded ???Last Taken ???Type insulin glargine 100 unit/mL (3 40 unit subcut DAILY DIABETES 06/2511/23/23 History mL) subcutaneous pen (Lantus Solostar U-100 Insulin) lisinopril 40 mg tablet 40 mg PO DAILY BLOOD PRESSURE 06/2511/24/23 History insulin lispro 100 unit/mL 6 unit subcut QHS 06/12/24 Unknown History subcutaneous half-unit pen (Humalog Jose R KwikPen (U-100)) metformin 500 mg tablet,extended 1,000 mg PO DAILY 06/12/24 Unknown History release 24 hr omeprazole 40 mg capsule,delayed 40 mg PO DAILY #30 caps 06/12/24 U nknown Rx release venlafaxine 150 mg 150 mg PO DAILY 06/12/24 Unknown H istory capsule,extended release 24 hr Allergy/AdvReac Type Severity Reaction Status Date / Time simvastatin (From Zocor) AdvReac Pain in Verified 06/12/24 20:02 joints Surgical History Status post cholecystectomy H/O shoulder surgery Social History Smoking Status: Never smoker ROS ROS ED ROS Narrative Review of systems positive for bright red blood per rectum with mild lightheadedness. No chest pain or shortness of breath. No nausea or vomiting. No diarrhea. No abdominal pain. EXAM Physical Exam Narrative Exam Narrative: Afebrile. Vital signs noted. Nontoxic-appearing. HEENT examination is grossly unremarkable with no central cyanosis. No subconjunctival anemia. Cardiovascular examination reveals a regular rate and rhythm, lungs clear to auscultation bilaterally. Abdomen is soft and nontender without guarding or rebound. Positive bowel sounds. Neurological examination nonfocal and nonlateralizing. Const Vital Signs: 06/12/24 20:02 06/12/24 22:15 06/12/24 22:16 Temperature 98.3 F Temperature Source Temporal Pulse Rate 103 H 86 Pulse Rate [Lying] 85 Pulse Rate [Sitting (for 1 minute prior to obtaining)] 85 Pulse Rate [Standing (for 1 minute prior to obtaining)] 90 Respiratory Rate 15 17 Blood Pressure 189/84 H Blood Pressure [Lying] 163/92 H Blood Pressure [Sitting (for 1 minute prior to obtaining)] 164/94 H Blood Pressure [Standing (for 1 minute prior to obtaining)] 139/89 H Blood Pressure Mean 119 Blood Pressure Mean [Lying] 115 Blood Pressure Mean [Sitting (for 1 minute prior to obtaining)] 117 Blood Pressure Mean [Standing (for 1 minute prior to obtaining)] 105 Pulse Ox 99 98 Oxygen Delivery Method Room Air Room Air MDM MDM MDM Narrative Medical decision making narrative: Differential diagnosis includes but not limited to diverticular bleed versus AV malformation versus internal hemorrhoid. I doubt brisk upper GI bleed as he has not had any hematemesis. He has no abdominal pain. I do not feel that he requires CT imaging currently. I will obtain orthostatic vital signs given his lightheadedness. Baseline laboratories the form of CBC, CMP, and lipase were obtained per protocol. I will obtain an EKG as well. EKG was obtained and interpreted by myself independently as normal sinus rhythm at 89 bpm without ectopy or acute ST changes. No STEMI. I reviewed his laboratory work, and he has normal white count of 10.6 with hemoglobin stable at 12.4, hematocrit 36.7, platelet count normal at 305. Sodium is normal at 139 with potassium 4.0 and BUN (more content not included)... Normal [facility] Eosinophil percentageOrdered By: Nikko Arango on 06-12-2024 Eosinophils/100 WBC (Bld) 1.4 % 0-5 [facility] Erythrocyte distribution wid th ratioOrdered By: Nikko Arango on 06-12-2024 Erythrocyte distribution width (RBC) [Ratio] 12.1 % 11.6-14.6 [facility] Erythrocyte distribution wid th standard deviationOrdered By: Nikko Arango on 06-12-2024 Erythrocyte distribution width (RBC) [Entitic vol] 42.2 fL 35.1-43.9 [facility] Estimation of creatinine sandra aranceOrdered By: Nikko Arango on 06-12-2024 Estimated Creatinine Clearance Calc 93.55 ml/min 50-250 [facility] GFR/1.73 sq M.predicted sheryl g non-blacks MDRD (S/P/Bld) [Vol rate/Area]Ordered By: Nikko Arango on 06-12-2024 Estimated GFR (MDRD) Non-Af Amer 100 >60 [facility] Comment on above: mL/min/1.73m2 CKD-EP I Creatinine Equation (2020) Hematocrit Auto (Bld) [Volum e fraction]Ordered By: Nikko Arango on 06-12-2024 Hematocrit (Bld) [Volume fraction] 36.7 % Low 40-54 [facility] Hemoglobin measurementOrdere d By: Nikko Arango on 06-12-2024 Hemoglobin (Bld) [Mass/Vol] 12.4 g/dL Low 13.0-16.5 [facility] Immature granulocytes/100 WB C Auto (Bld)Ordered By: Nikko Arango on 06-12-2024 Immature granulocytes/100 WBC (Bld) 0.800 % 0.0-0.9 [facility] Comment on above: IG% - Immature Granu locytes (promyelocytes, myelocytes and metamyelocytes) > 1% indicates that a LEFT SHIFT is Present. Laboratory - Chemistry and C hemistry - challengeOrdered By: Nikko Arango on 06-12-2024 AST [Catalytic activity/Vol] 19 U/L <38 [facility] Lipaseon 06-12-2024 Lipase [Catalytic activity/Vol] 33 U/L Normal 13-75 [facility] Comment on above: Result Comment: Weston dunbar note: LIPASE revised reference range effective 22. New Lipase methodology. Expected to produce lower values than the previous assay method. NEW Reference Range: 13 - 75 U/L Performed By: #### L 501.9985, L502.0500, L500.4050, L500.4100, L501.9520, L501.9910, L503.0105, L509.3000 #### [facility], [place], [id number] Lipase measurementOrdered By : Nikko Arango on 06-12-2024 Lipase [Catalytic activity/Vol] 33 U/L 13-75 [facility] Comment on above: Please note:LIPASE r evised reference range effective 22. New Lipase methodology. Expected to produce lower values than the previous assay method. NEW Reference Range: 13 - 75 U/L Lower GI hemoglobin IA Ql (S tl)Ordered By: Nikko Arango on 06-12-2024 Stool Occult Blood (MELANIA) [facility] Lymphocytes Auto (Unsp spec) [#/Vol]Ordered By: Nikko Arango on 06-12-2024 Lymphocytes (Bld) [#/Vol] 1.71 10*3/uL 0.83-4.5 1 [facility] Lymphocytes/100 WBC Auto (Un sp spec)Ordered By: Nikko Arango on 06-12-2024 Lymphocytes/100 WBC (Bld) 16.1 % Low 19-41 [facility] MCV (mean corpuscular volume ) determinationOrdered By: Nikko Arango on 06-12-2024 MCV (RBC) [Entitic vol] 96.1 fL High 80-94 [facility] Mean corpuscular hemoglobin (MCH) determinationOrdered By: Nikko Arango on 06-12-2024 MCH (RBC) [Entitic mass] 32.5 pg High 27.0-32.0 [facility] Mean corpuscular hemoglobin concentration (MCHC) determinationOrdered By: Nikko Arango on 06-12-2024 MCHC (RBC) [Mass/Vol] 33.8 g/dL 32-36 [facility] Mean platelet volume determi nationOrdered By: Nikko Arango on 06-12-2024 Platelet mean volume (Bld) [Entitic vol] 9.5 fL 6.2-12.0 [facility] Monocyte percentageOrdered B y: Nikko Arango on 06-12-2024 Monocytes/100 WBC (Bld) 6.9 % 0-10 [facility] Neutrophil percentageOrdered By: Nikko Arango on 06-12-2024 Neutrophils/100 WBC (Bld) 74.1 % High 47-70 [facility] Nucleated red blood cell per centageOrdered By: Nikko Arango on 06-12-2024 Nucleated RBC/100 WBC (Bld) [Ratio] 0 % 0-5 [facility] Platelet countOrdered By: Miguel Arango on 06-12-2024 Platelets (Bld) [#/Vol] 305 10*3/uL 150-450 [facility] Potassium (Unsp spec) [Mass/ Vol]Ordered By: Nikko Arango on 06-12-2024 Potassium [Moles/Vol] 4.0 mmol/L 3.3-5.1 [facility] RBC Auto (Bld) [#/Vol]Ordere d By: Nikko Arango on 06-12-2024 RBC (Bld) [#/Vol] 3.82 10*6/uL Low 4.6-6.2 [facility] Serum creatinine measurement (mass/volume)Ordered By: Nikko Arango on 06-12-2024 Creatinine [Mass/Vol] 0.76 mg/dL 0.70-1.20 [facility] Serum globulin measurementOr dered By: Nikko Arango on 06-12-2024 Globulin (S) [Mass/Vol] 2.6 g/dL 2.2-4.2 [facility] Serum glucose measurement (m ass/volume)Ordered By: Nikko Arango on 06-12-2024 Glucose [Mass/Vol] 206 mg/dL High 70-99 [facility] Serum or plasma alanine mitchell otransferase (ALT) measurementOrdered By: Nikko Arango on 06-12-2024 ALT [Catalytic activity/Vol] 21 U/L <47 [facility] Serum or plasma albumin guanako urement (mass/volume)Ordered By: Nikko Arango on 06-12-2024 Albumin [Mass/Vol] 4.0 g/dL 3.4-4.8 [facility] Serum or plasma albumin/glob ulin mass ratioOrdered By: Nikko Arango on 06-12-2024 Albumin/Globulin [Mass ratio] 1.5 {ratio} 0.9-2.4 [facility] Serum or plasma alkaline kaye sphatase measurementOrdered By: Nikko Arango on 06-12-2024 ALP [Catalytic activity/Vol] 76 U/L 40-129 [facility] Serum or plasma calcium guanako urement (mass/volume)Ordered By: Nikko Arango on 06-12-2024 Calcium [Mass/Vol] 8.8 mg/dL 7.6-11.0 [facility] Serum or plasma urea nitroge n measurement (mass/volume)Ordered By: Nikko Arango on 06-12-2024 Urea nitrogen [Mass/Vol] 26 mg/dL High 4-19 [facility] Sodium levelOrdered By: Nikko Arango on 06-12-2024 Sodium [Moles/Vol] 139 mmol/L 133-145 [facility] Stool Occult Blood iFOBon STOB Normal Reference Range = Negative Immunochemical Fecal Occult Blood (iFOBT) method. Hemoccult Stl Ql IA Limitation: Menstrual bleeding, constipation bleeding, bleeding hemorrhoids, and urinary bleeding conditions may interfere with test. Occult Blood Negative Normal [facility] Comment on above: Performed By: #### L 501.9985, L502.0500, L500.4050, L500.4100, L501.9520, L501.9910, L503.0105, L509.3000 #### [facility] [address] [place], [address] Total proteinOrdered By: Dasia Arango on 06-12-2024 Protein [Mass/Vol] 6.5 g/dL 5.9-8.4 [facility] White blood cell (WBC) count Ordered By: Nikko Mirlelache on 06-12-2024 WBC (Bld) [#/Vol] 10.6 10*3/uL 4.4-11.0 [facility] Hemoglobin A1con 05-14-2024 HbA1c (Bld) [Mass fraction] 7.8 % High 3.8-5.6 [facility] Comment on above: Order Comment: Order Date: 04/12/24 Order Info: [id number] - A1C Result Comment: Norm al < 5.7 % Prediabetic 5.7 - 6.4 % Diabetic >or= 6.5 % Please note range changes. Performed By: #### L 501.9985, L502.0500, L500.4050, L500.4100, L501.9520, L501.9910, L503.0105, L509.3000 #### [facility] [address] [place], [address] Albumin to globulin ratioOrd ered By: Song Christensen on 05-12-2024 Albumin/Globulin [Mass ratio] 1.0 {ratio} 0.9-2.4 [facility] Bilirubin, totalOrdered By: Song Christensen on 05-12-2024 Bilirubin [Mass/Vol] 0.50 mg/dL 0.20-1.00 [facility] Comment on above: For patients on eltr ombopag therapy, use of Dimension [place] TBIL is not recommended. Blood urea nitrogen (BUN)/cr eatinine ratioOrdered By: Song Christensen on 05-12-2024 Urea nitrogen/Creatinine [Mass ratio] 15.1 mg/mg 10-20 [facility] Carbon dioxide measurementOr dered By: Song Christensen on 05-12-2024 CO2 [Moles/Vol] 28.0 mmol/L 21.0-32.0 [facility] Chloride measurementOrdered By: Song Christensen on 05-12-2024 Chloride [Moles/Vol] 106 mmol/L 98-107 [facility] Comprehensive Metabolic Prof ilon 05-12-2024 Albumin [Mass/Vol] 3.7 g/dL Normal 3.2-5.0 [facility] Comment on above: Order Comment: Order Date: 04/12/24 Order Info: 785- - CMP Order Info: - LIPID Order Info: 3015-06 - TSH Order Info: 2856-1 - PSA Performed By: #### L 501.9985, L502.0500, L500.4050, L500.4100, L501.9520, L501.9910, L503.0105, L509.3000 #### [facility] [address] [place], [address] Albumin/Globulin [Mass ratio] 1.0 {ratio} Normal 0.9-2.4 [facility] Comment on above: Order Comment: Order Date: 04/12/24 Order Info: 785-04 - CMP Order Info: - LIPID Order Info: 3015-06 - TSH Order Info: 2856-04 - PSA Performed By: #### L 501.9985, L502.0500, L500.4050, L500.4100, L501.9520, L501.9910, L503.0105, L509.3000 #### [facility] [address] [place], [address] ALK P 66 U/L Normal 45-117 [facility] Comment on above: Order Comment: Order Date: 04/12/24 Order Info: 86 - CMP Order Info: - LIPID Order Info: 3015-06 - TSH Order Info: 1 - PSA Performed By: #### L 501.9985, L502.0500, L500.4050, L500.4100, L501.9520, L501.9910, L503.0105, L509.3000 #### [facility] [address] [place], [address] ALT [Catalytic activity/Vol] 28 U/L Normal 16-61 [facility] Comment on above: Order Comment: Order Date: 04/12/24 Order Info: 785-1 - CMP Order Info: - LIPID Order Info: 3015-06 - TSH Order Info: 2856-04 - PSA Performed By: #### L 501.9985, L502.0500, L500.4050, L500.4100, L501.9520, L501.9910, L503.0105, L509.3000 #### [facility] [address] [place], [place], [id number] AST [Catalytic activity/Vol] 13 U/L Low 15-37 [facility] Comment on above: Order Comment: Order Date: 04/12/24 Order Info: 785- - CMP Order Info: - LIPID Order Info: 3015-06 - TSH Order Info: 2856-04 - PSA Performed By: #### L 501.9985, L502.0500, L500.4050, L500.4100, L501.9520, L501.9910, L503.0105, L509.3000 #### [facility] [address] [place], [place], [id number] Bilirubin [Mass/Vol] 0.50 mg/dL Normal 0.20-1.00 [facility] Comment on above: Order Comment: Order Date: 04/12/24 Order Info: 785-04 - CMP Order Info: - LIPID Order Info: 3015-06 - TSH Order Info: 2856-04 - PSA Result Comment: For patients on eltrombopag therapy, use of Dimension [place] TBIL is not recommended. Performed By: #### L 501.9985, L502.0500, L500.4050, L500.4100, L501.9520, L501.9910, L503.0105, L509.3000 #### [facility] [address] [place], [place], [id number] BUN/CRE 15.1 RATIO Normal 10-20 [facility] Comment on above: Order Comment: Order Date: 04/12/24 Order Info: 785- - CMP Order Info: [id number] - LIPID Order Info: 3015-06 TSH Order Info: 2856-04 - PSA Performed By: #### L 501.9985, L502.0500, L500.4050, L500.4100, L501.9520, L501.9910, L503.0105, L509.3000 #### [facility] [address] [place], [address] CA,Total 8.7 mg/dL Normal 8.5-10.1 [facility] Comment on above: Order Comment: Order Date: 04/12/24 Order Info: 785-04 - CMP Order Info: - LIPID Order Info: 3015-06 - TSH Order Info: 2856-04 - PSA Performed By: #### L 501.9985, L502.0500, L500.4050, L500.4100, L501.9520, L501.9910, L503.0105, L509.3000 #### [facility] [address] [place], [address] Chloride [Moles/Vol] 106 mmol/L Normal 98-107 [facility] Comment on above: Order Comment: Order Date: 04/12/24 Order Info: 785-04 - CMP Order Info: - LIPID Order Info: 3015-06 - TSH Order Info: 2856-04 - PSA Performed By: #### L 501.9985, L502.0500, L500.4050, L500.4100, L501.9520, L501.9910, L503.0105, L509.3000 #### [facility] [address] [place], [address] CO2 [Moles/Vol] 28.0 mmol/L Normal 21.0-32.0 [facility] Comment on above: Order Comment: Order Date: 04/12/24 Order Info: 1 - CMP Order Info: [id number] - LIPID Order Info: 3015-06 - TSH Order Info: 2856-04 - PSA Performed By: #### L 501.9985, L502.0500, L500.4050, L500.4100, L501.9520, L501.9910, L503.0105, L509.3000 #### [facility] [address] [place], [place], [id number] Creatinine [Mass/Vol] 0.79 mg/dL Normal 0.70-1.30 [facility] Comment on above: Order Comment: Order Date: 04/12/24 Order Info: 785- - CMP Order Info: - LIPID Order Info: 3015-06 - TSH Order Info: 2856-04 - PSA Result Comment: The validity of the calculated GFR GFRAA in patients over 70 years has not been determined. Clinical correlation is essential. Performed By: #### L 501.9985, L502.0500, L500.4050, L500.4100, L501.9520, L501.9910, L503.0105, L509.3000 #### [facility] [address] [place], [place], [id number] EST GFR - AA 126 mL/min Normal >60 [facility] Comment on above: Order Comment: Order Date: 04/12/24 Order Info: 785-04 - CMP Order Info: - LIPID Order Info: 3015-06 - TSH Order Info: 2856-04 - PSA Result Comment: Afri can Dominican GFR Calc Performed By: #### L 501.9985, L502.0500, L500.4050, L500.4100, L501.9520, L501.9910, L503.0105, L509.3000 #### [facility] [address] [place], [place], [id number] GAP 7 Normal 5-15 [facility] Comment on above: Order Comment: Order Date: 04/12/24 Order Info: 785-04 - CMP Order Info: - LIPID Order Info: 3015-06 - TSH Order Info: 2856-04 - PSA Performed By: #### L 501.9985, L502.0500, L500.4050, L500.4100, L501.9520, L501.9910, L503.0105, L509.3000 #### [facility] [address] [facility] [place] [place], [address] GFR/1.73 sq M.predicted among non-blacks MDRD (S/P/Bld) [Vol rate/Area] 104 mL/min/{1.73_m2} Normal >60 [facility] Comment on above: Order Comment: Order Date: 04/12/24 Order Info: 785-04 - CMP Order Info: - LIPID Order Info: 3 - TSH Order Info: 2856-04 - PSA Result Comment: Non- GFR Calc Performed By: #### L 501.9985, L502.0500, L500.4050, L500.4100, L501.9520, L501.9910, L503.0105, L509.3000 #### [facility] [address] [place], [address] Globulin (S) [Mass/Vol] 3.6 g/dL Normal 2.2-4.2 [facility] Comment on above: Order Comment: Order Date: 04/12/24 Order Info: 785-04 - CMP Order Info: - LIPID Order Info: 3015-06 - TSH Order Info: 2856-04 - PSA Performed By: #### L 501.9985, L502.0500, L500.4050, L500.4100, L501.9520, L501.9910, L503.0105, L509.3000 #### [facility] [address] [place], [address] Glucose [Mass/Vol] 128 mg/dL High 74-106 [facility] Comment on above: Order Comment: Order Date: 04/12/24 Order Info: 07 - CMP Order Info: - LIPID Order Info: 3 - TSH Order Info: 28510-03 - PSA Result Comment: Fast ing Glucose result greater than or equal to 126 mg/dL suggests DIABETES MELLITUS per A.D.A. criteria. Performed By: #### L 501.9985, L502.0500, L500.4050, L500.4100, L501.9520, L501.9910, L503.0105, L509.3000 #### [facility] [address] [place], [address] Potassium [Moles/Vol] 4.1 mmol/L Normal 3.5-5.1 [facility] Comment on above: Order Comment: Order Date: 04/12/24 Order Info: 785-1 - CMP Order Info: - LIPID Order Info: 3015-06 - TSH Order Info: 2856-04 - PSA Performed By: #### L 501.9985, L502.0500, L500.4050, L500.4100, L501.9520, L501.9910, L503.0105, L509.3000 #### [facility] [address] [place], [address] Sodium [Moles/Vol] 142 mmol/L Normal 136-145 [facility] Comment on above: Order Comment: Order Date: 04/12/24 Order Info: 785- - CMP Order Info: - LIPID Order Info: 3015-06 - TSH Order Info: 2856-04 - PSA Performed By: #### L 501.9985, L502.0500, L500.4050, L500.4100, L501.9520, L501.9910, L503.0105, L509.3000 #### [facility] [address] [place], [address] T PROT 7.3 g/dL Normal 6.4-8.2 [facility] Comment on above: Order Comment: Order Date: 04/12/24 Order Info: 785-1 - CMP Order Info: [id number] - LIPID Order Info: 3 - TSH Order Info: 2856-04 - PSA Performed By: #### L 501.9985, L502.0500, L500.4050, L500.4100, L501.9520, L501.9910, L503.0105, L509.3000 #### [facility] [address] [place], [address] Urea nitrogen [Mass/Vol] 12 mg/dL Normal 7-18 [facility] Comment on above: Order Comment: Order Date: 04/12/24 Order Info: 0786-1 - CMP Order Info: 85029-7 - LIPID Order Info: 3016-3 - TSH Order Info: 2857-1 - PSA Performed By: #### L 501.9985, L502.0500, L500.4050, L500.4100, L501.9520, L501.9910, L503.0105, L509.3000 #### [facility] [address] [place], [place], [id number] Estimated glomerular filtrat ion rate (GFR) AmericanOrdered By: Song Christensen on 05-12-2024 Estimated GFR (MDRD) Amer 126 mL/min >60 [facility] Comment on above: GFR Calc Glomerular filtration rate ( GFR) estimationOrdered By: Song Christensen on 05-12-2024 Estimated GFR (MDRD) Non-Af Amer 104 mL/min >60 [facility] Comment on above: Non- GFR Calc Glucose measurementOrdered B y: Song Christensen on 05-12-2024 Glucose [Mass/Vol] 128 mg/dL High 74-106 [facility] Comment on above: Fasting Glucose resu lt greater than or equal to 126 mg/dL suggests DIABETES MELLITUS per A.D.A. criteria. Hemoglobin A1c percentageOrd ered By: Song Christensen on 05-12-2024 HbA1c (Bld) [Mass fraction] 7.8 % High 3.8-5.6 [facility] Comment on above: Normal < 5.7 % Predi abetic 5.7 - 6.4 % Diabetic >or= 6.5 % Please note range changes. High density lipoprotein (HD L) measurementOrdered By: Song Christensen on 05-12-2024 Cholesterol in HDL [Mass/Vol] 53 mg/dL >40 [facility] Comment on above: The drugs N-Acetylcy steine and Metamizole may falsely depress this assay. Reference Range HDL <40 mg/dL Low HDL Cholesterol HDL >or= 60 mg/dL High HDL Cholesterol Laboratory - Chemistry and C hemistry - challengeOrdered By: Song Christensen on 05-12-2024 AST [Catalytic activity/Vol] 13 U/L Low 15-37 [facility] Lipid Profileon 05-12-2024 Cholesterol [Mass/Vol] 238 mg/dL High 200 [facility] Comment on above: Order Comment: Order Date: 04/12/24 Order Info: 0786-1 - CMP Order Info: [id number] - LIPID Order Info: 3015-06 - TSH Order Info: 2856-04 - PSA Result Comment: <200 mg/dL Desirable 200-240 mg/dL Borderline >240 mg/dL High Risk Performed By: #### L 501.9985, L502.0500, L500.4050, L500.4100, L501.9520, L501.9910, L503.0105, L509.3000 #### [facility] [address] [place], [address] Cholesterol in HDL [Mass/Vol] 53 mg/dL Normal [facility] Comment on above: Order Comment: Order Date: 04/12/24 Order Info: 0786- - CMP Order Info: [id number] - LIPID Order Info: 3 - TSH Order Info: 28510-03 - PSA Result Comment: The drugs N-Acetylcysteine and Metamizole may falsely depress this assay. Reference Range HDL <40 mg/dL Low HDL Cholesterol HDL >or= 60 mg/dL High HDL Cholesterol Performed By: #### L 501.9985, L502.0500, L500.4050, L500.4100, L501.9520, L501.9910, L503.0105, L509.3000 #### [facility] [address] [place], [address] Cholesterol in LDL [Mass/Vol] 169 mg/dL High 0-130 [facility] Comment on above: Order Comment: Order Date: 04/12/24 Order Info: 785-04 - CMP Order Info: - LIPID Order Info: 3015-06 - TSH Order Info: 2856-04 - PSA Performed By: #### L 501.9985, L502.0500, L500.4050, L500.4100, L501.9520, L501.9910, L503.0105, L509.3000 #### [facility] [address] [place], [place], [id number] Cholesterol in VLDL [Mass/Vol] 16 mg/dL Normal 5-40 [facility] Comment on above: Order Comment: Order Date: 04/12/24 Order Info: 785-04 - CMP Order Info: - LIPID Order Info: 3015-06 - TSH Order Info: 2856-04 - PSA Performed By: #### L 501.9985, L502.0500, L500.4050, L500.4100, L501.9520, L501.9910, L503.0105, L509.3000 #### [facility] [address] [place], [place], [id number] Triglyceride [Mass/Vol] 81 mg/dL Normal [facility] Comment on above: Order Comment: Order Date: 04/12/24 Order Info: 785-04 - CMP Order Info: - LIPID Order Info: 3015-06 - TSH Order Info: 2856-04 - PSA Result Comment: The drugs N-Acetylcysteine and Metamizole may falsely depress this assay. Serum Triglycerides Reference Interval Normal <150 mg/dL Borderline high 150 - 199 mg/dL High 200 - 499 mg/dL Very High > or = 500 mg/dL Performed By: #### L 501.9985, L502.0500, L500.4050, L500.4100, L501.9520, L501.9910, L503.0105, L509.3000 #### [facility] [address] [place], [place], [id number] Low density lipoprotein (LDL ) cholesterol measurementOrdered By: Song Christensen on 05-12-2024 Cholesterol in LDL [Mass/Vol] 169 mg/dL High 0-130 [facility] Microalbumin,Random Urineon 05-12-2024 MICROALBUMIN,UR 50.0 mg/L Normal NO RANGE EST. [facility] Comment on above: Order Comment: Order Date: 04/12/24 Order Info: [id number] - MIALB Performed By: #### L 501.9985, L502.0500, L500.4050, L500.4100, L501.9520, L501.9910, L503.0105, L509.3000 #### [facility] [address] [place], [place], [id number] PSA,Total - Annual Screenon 05-12-2024 PSA,TOT SCREEN 2.83 ng/mL Normal 0.00-4.00 [facility] Comment on above: Order Comment: Order Date: 04/12/24 Order Info: 0786-1 - CMP Order Info: [id number] - LIPID Order Info: 3016-3 - TSH Order Info: 2857-1 - PSA Result Comment: This test was performed using the TPSA assay method for the [employer] chemistry system. Values obtained with different assay methods cannot be used interchangably. When changing PSA assays in the course of monitoring a patient, additional sequential testing should be carried out to confirm baseline values. Performed By: #### L 501.9985, L502.0500, L500.4050, L500.4100, L501.9520, L501.9910, L503.0105, L509.3000 #### [facility] [address] [place], [address] Potassium measurementOrdered By: Song Christensne on 05-12-2024 Potassium [Moles/Vol] 4.1 mmol/L 3.5-5.1 [facility] Random urine microalbumin me asurementOrdered By: Song Christensen on 05-12-2024 Urine Random Microalbumin 50.0 mg/L NO RANGE E [facility] Screening prostate specific antigen (PSA) measurementOrdered By: Song Christensen on 05-12-2024 Prostate Specific Antigen Screen 2.83 ng/mL 0.00-4.00 [facility] Comment on above: This test was perfor med using the TPSA assay method [facility]. Values obtained with differentassay methods cannot be used interchangably.When changing PSA assays in the course of monitoring apatient, additional sequential testing should be carriedout to confirm baseline values. Serum anion gap measurementO rdered By: Song Christensen on 05-12-2024 Anion gap [Moles/Vol] 7 mmol/L 5-15 [facility] Serum globulin measurementOr dered By: Song Christensen on 05-12-2024 Globulin (S) [Mass/Vol] 3.6 g/dL 2.2-4.2 [facility] Serum or plasma alanine mitchell otransferase (ALT) measurementOrdered By: Song Christenesn on 05-12-2024 ALT [Catalytic activity/Vol] 28 U/L 16-61 [facility] Serum or plasma albumin guanako urement (mass/volume)Ordered By: Song Christensen on 05-12-2024 Albumin [Mass/Vol] 3.7 g/dL 3.2-5.0 [facility] Serum or plasma alkaline kaye sphatase measurementOrdered By: Song Christensen on 05-12-2024 ALP [Catalytic activity/Vol] 66 U/L 45-117 [facility] Serum or plasma calcium guanako urement (mass/volume)Ordered By: Song Christensen on 05-12-2024 Calcium [Mass/Vol] 8.7 mg/dL 8.5-10.1 [facility] Serum or plasma cholesterol measurement (mass/volume)Ordered By: Song Christensen on 05-12-2024 Cholesterol [Mass/Vol] 238 mg/dL High <200 [facility] Comment on above: <200 mg/dL Desirable 200-240 mg/dL Borderline >240 mg/dL High Risk Serum or plasma creatinine m easurement (mass/volume)Ordered By: Song Christensen on 05-12-2024 Creatinine [Mass/Vol] 0.79 mg/dL 0.70-1.30 [facility] Comment on above: The validity of the calculated GFR & GFRAA in patients over 70 years has not been determined. Clinical correlation is essential. Serum or plasma urea nitroge n measurement (mass/volume)Ordered By: Song Christensen on 05-12-2024 Urea nitrogen [Mass/Vol] 12 mg/dL 7-18 [facility] Sodium levelOrdered By: Grant kay Fermin on 05-12-2024 Sodium [Moles/Vol] 142 mmol/L 136-145 [facility] TSH QnOrdered By: Gutierrez Christensen on 05-12-2024 Thyroid Stimulating Hormone (TSH) 0.663 uIU/mL 0.358-3.740 [facility] Testosterone, Serum Totalon 05-12-2024 Testosterone [Mass/Vol] 364.00 ng/dL Normal [facility] Comment on above: Order Comment: Order Date: 04/12/24 Order Info: [id number] - B12 Order Info: [id number] - SOFIA Result Comment: CENT RAL 90% REFERENCE RANGES MALE AGE <50 197.44 - 669.58 ng/dL MALE AGE > or = 50 187.72 - 684.19 ng/dL FEMALE AGE <50 8.38 - 35.01 ng/dL FEMALE AGE > or = 50 <7.00 - 35.92 ng/dL Effective as of 10/29/20 Performed By: #### L [id number], L502.0500, L500.4050, L500.4100, L501.9520, L501.9910, L503.0105, L509.3000 #### [facility] [address] [place], [address] Testosterone, totalOrdered B y: Song Christensen on 05-12-2024 Testosterone [Mass/Vol] 364.00 ng/dL [facility] Comment on above: CENTRAL 90% REFERENC E RANGES MALE AGE <50 197.44 - 669.58 ng/dL MALE AGE > or = 50 187.72 - 684.19 ng/dL FEMALE AGE <50 8.38 - 35.01 ng/dL FEMALE AGE > or = 50 <7.00 - 35.92 ng/dL Effective as of 10/29/20 Thyroid Stim Hormone (TSH)on 05-12-2024 TSH 0.663 uIU/mL Normal 0.358-3.740 [facility] Comment on above: Order Comment: Order Date: 04/12/24 Order Info: [id number] - CMP Order Info: [id number] - LIPID Order Info: [id number] - TSH Order Info: [id number] - PSA Performed By: #### L [id number], L502.0500, L500.4050, L500.4100, L501.9520, L501.9910, L503.0105, L509.3000 #### [facility] [address] [place], [address] Total proteinOrdered By: Darshan Christensen on 05-12-2024 Protein [Mass/Vol] 7.3 g/dL 6.4-8.2 [facility] Triglycerides measurementOrd ered By: Song Christensen on 05-12-2024 Triglyceride [Mass/Vol] 81 mg/dL <199 [facility] Comment on above: The drugs N-Acetylcy steine and Metamizole may falsely depress this assay.Serum Triglycerides Reference Interval Normal <150 mg/dL Borderline high 150 - 199 mg/dL High 200 - 499 mg/dL Very High > or = 500 mg/dL Very low density lipoprotein (VLDL) cholesterol measurementOrdered By: Song Christensen on 05-12-2024 VLDL Cholesterol 16 mg/dL 5-40 [facility] Vitamin B12on 05-12-2024 Cobalamin (Vitamin B12) [Mass/Vol] 403 pg/mL Normal 211-911 [facility] Comment on above: Order Comment: Order Date: 04/12/24 Order Info: [id number] - B12 Order Info: [id number] - SOFIA Performed By: #### L [id number], L502.0500, L500.4050, L500.4100, L501.9520, L501.9910, L503.0105, L509.3000 #### [facility] [address] [place], [address] Vitamin B12 measurementOrder ed By: Song Christensen on 05-12-2024 Cobalamin (Vitamin B12) [Mass/Vol] 403 pg/mL 211-911 [facility] Whole blood hemoglobin A1c/t otal hemoglobin ratio (mass fraction)Ordered By: Dr. Christensen on 06-17-2022 HbA1c (Bld) [Mass fraction] 9.7 % 3.8-5.6 [facility] Comment on above: Normal < 5.7 % Predi abetic 5.7 - 6.4 % Diabetic >or= 6.5 % Please note range changes. Absolute lymphocyte countOrd ered By: Amanda Rizo on 04-24-2022 Lymphocytes Auto (Unsp spec) [#/Vol] 2.10 10*3/uL 0.83-4.51 [facility] Basophil percentageOrdered B y: Amanda Rizo on 04-24-2022 Basophils/100 WBC (Bld) 1.0 % 0-1 [facility] Chloride [Moles/Vol] 103 mmol/L 98-107 [facility] Eosinophils/100 WBC (Bld) 2.1 % 0-5 [facility] Glucose [Mass/Vol] 341 mg/dL 74-106 [facility] Comment on above: Glucose result great er than or equal to 200 mg/dLsuggests DIABETES MELLITUS per A.D.A. criteria. Neutrophils (Bld) [#/Vol] 8.0 10*3/uL 2.0-7.7 [facility] Neutrophils/100 WBC (Bld) 73.2 % 47-70 [facility] Potassium [Moles/Vol] 4.4 mmol/L 3.5-5.1 [facility] Sodium [Moles/Vol] 136 mmol/L 136-145 [facility] WBC (Bld) [#/Vol] 10.9 10*3/uL 4.4-11.0 [facility] Blood erythrocytes count (nu mber/volume)Ordered By: Amanda Rizo on 04-24-2022 RBC (Bld) [#/Vol] 4.78 10*6/uL 4.6-6.2 [facility] Blood hemoglobin measurement (mass/volume)Ordered By: Amanda Rizo on 04-24-2022 Hemoglobin (Bld) [Mass/Vol] 15.1 g/dL 13.0-16.5 [facility] Blood lymphocytes/100 leukoc ytesOrdered By: Amanda Rizo on 04-24-2022 Lymphocytes/100 WBC (Bld) 19.2 % 19-41 [facility] Blood monocytes/100 leukocyt esOrdered By: Amanda Rizo on 04-24-2022 Monocytes/100 WBC (Bld) 3.7 % 0-10 [facility] Blood platelet mean volumeOr dered By: Amanda Rizo on 04-24-2022 Platelet mean volume (Bld) [Entitic vol] 9.8 fL 6.2-12.0 [facility] Determination of erythrocyte mean corpuscular volume (MCV)Ordered By: Amanda Rizo on 04-24-2022 MCV (RBC) [Entitic vol] 98.1 fL 80-94 [facility] Hematocrit Auto (Bld) [Volum e fraction]Ordered By: Amanda Rizo on 04-24-2022 Hematocrit (Bld) [Volume fraction] 46.9 % 40-54 [facility] - Chemistry and C hemistry - challengeOrdered By: Amanda Rizo on 04-24-2022 CO2 [Moles/Vol] 24.0 mmol/L 21.0-32.0 [facility] Urea nitrogen/Creatinine [Mass ratio] 19.5 mg/mg 10-20 [facility] - Hematology and Cell countsOrdered By: Amanda Rizo on 04-24-2022 Erythrocyte distribution width (RBC) [Entitic vol] 43.0 fL 35.1-43.9 [facility] Erythrocyte distribution width (RBC) [Ratio] 11.9 % 11.6-14.6 [facility] Immature granulocytes/100 WBC (Bld) 0.800 % 0.0-0.9 [facility] Comment on above: IG% - Immature Granu locytes (promyelocytes, myelocytes and metamyelocytes) > 1% indicates that a LEFT SHIFT is Present. MCH (RBC) [Entitic mass] 31.6 pg 27.0-32.0 [facility] Nucleated RBC/100 WBC (Bld) [Ratio] 0 % 0-5 [facility] Auto (RBC) [Mass/Vol]Or dered By: Amanda Rizo on 04-24-2022 MCHC (RBC) [Mass/Vol] 32.2 g/dL 32-36 [facility] No Panel InformationOrdered By: Amanda Rizo on 04-24-2022 Estimated Creatinine Clearance Calc 74.16 ml/min [facility] Estimated GFR (MDRD) Amer 106 mL/min >60 [facility] Comment on above: GFR Calc Estimated GFR (MDRD) Non-Af Amer 88 mL/min >60 [facility] Comment on above: Non- GFR Calc Troponin I High Sensitivity 5 pg/mL 3.0-78.0 [facility] Comment on above: Please Note: New Sofia t Units and Gender Specific Reference Ranges. For more information see Policy Stat Procedure [place] High Sensitivity Troponin (TNIH) and attachments. Platelets bldOrdered By: Juan Rizo on 04-24-2022 Platelets (Bld) [#/Vol] 415 10*3/uL 150-450 [facility] Serum or plasma calcium guanako urement (mass/volume)Ordered By: Amanda Rizo on 04-24-2022 Calcium [Mass/Vol] 8.4 mg/dL 8.5-10.1 [facility] Serum or plasma creatinine m easurement (mass/volume)Ordered By: Amanda Rizo on 04-24-2022 Creatinine [Mass/Vol] 0.92 mg/dL 0.70-1.30 [facility] Comment on above: The validity of the calculated GFR & GFRAA in patients over 70 years has not been determined. Clinical correlation is essential. Serum or plasma urea nitroge n measurement (mass/volume)Ordered By: Amanda Rizo on 04-24-2022 Urea nitrogen [Mass/Vol] 18 mg/dL 7-18 [facility] Thin prep Papanicolaou smear with manual screeningOrdered By: Amanda Rizo on 04-24-2022 Thin prep Papanicolaou smear with manual screening 9 5-15 [facility] Glucose Glucometer (BldC) [M ass/Vol]Ordered By: Dr. Ortiz on 04-09-2022 Glucose [Mass/Vol] 131 mg/dL 74-106 [facility] Comment on above: MANAGEMENT OF PATIEN T CARE PER NURSING PROTOCOL Absolute lymphocyte countOrd ered By: Dr. Ortiz on 04-08-2022 Lymphocytes Auto (Unsp spec) [#/Vol] 2.02 10*3/uL 0.83-4.51 [facility] Basophil percentageOrdered B y: Dr. Ortiz on 04-08-2022 Basophils/100 WBC (Bld) 0.4 % 0-1 [facility] Bilirubin [Mass/Vol] 0.70 mg/dL 0.20-1.00 [facility] Comment on above: For patients on eltr ombopag therapy, use of Dimension [place] TBIL is not recommended. Chloride [Moles/Vol] 108 mmol/L 98-107 [facility] Eosinophils/100 WBC (Bld) 1.9 % 0-5 [facility] Glucose [Mass/Vol] 67 mg/dL 74-106 [facility] Neutrophils (Bld) [#/Vol] 8.9 10*3/uL 2.0-7.7 [facility] Neutrophils/100 WBC (Bld) 73.4 % 47-70 [facility] Potassium [Moles/Vol] 3.7 mmol/L 3.5-5.1 [facility] Protein [Mass/Vol] 5.9 g/dL 6.4-8.2 [facility] Sodium [Moles/Vol] 141 mmol/L 136-145 [facility] WBC (Bld) [#/Vol] 12.2 10*3/uL 4.4-11.0 [facility] Blood erythrocytes count (nu mber/volume)Ordered By: Dr. Ortiz on 04-08-2022 RBC (Bld) [#/Vol] 3.96 10*6/uL 4.6-6.2 [facility] Blood hemoglobin measurement (mass/volume)Ordered By: Dr. Ortiz on 04-08-2022 Hemoglobin (Bld) [Mass/Vol] 12.6 g/dL 13.0-16.5 [facility] Blood lymphocytes/100 leukoc ytesOrdered By: Dr. Ortiz on 04-08-2022 Lymphocytes/100 WBC (Bld) 16.6 % 19-41 [facility] Blood monocytes/100 leukocyt esOrdered By: Dr. Ortiz on 04-08-2022 Monocytes/100 WBC (Bld) 6.7 % 0-10 [facility] Blood platelet mean volumeOr dered By: Dr. Ortiz on 04-08-2022 Platelet mean volume (Bld) [Entitic vol] 9.5 fL 6.2-12.0 [facility] Determination of erythrocyte mean corpuscular volume (MCV)Ordered By: Dr. Ortiz on 04-08-2022 MCV (RBC) [Entitic vol] 102.0 fL 80-94 [facility] Hematocrit Auto (Bld) [Volum e fraction]Ordered By: Dr. Ortiz on 04-08-2022 Hematocrit (Bld) [Volume fraction] 40.4 % 40-54 [facility] - Chemistry and C hemistry - challengeOrdered By: Dr. Ortiz on 04-08-2022 ALP [Catalytic activity/Vol] 94 U/L 45-117 [facility] ALT [Catalytic activity/Vol] 70 U/L 16-61 [facility] CO2 [Moles/Vol] 29.0 mmol/L 21.0-32.0 [facility] Globulin (S) [Mass/Vol] 3.0 g/dL 2.2-4.2 [facility] Urea nitrogen/Creatinine [Mass ratio] 20.2 mg/mg 10-20 [facility] - Hematology and Cell countsOrdered By: Dr. Ortiz on 04-08-2022 Erythrocyte distribution width (RBC) [Entitic vol] 46.3 fL 35.1-43.9 [facility] Erythrocyte distribution width (RBC) [Ratio] 12.3 % 11.6-14.6 [facility] Immature granulocytes/100 WBC (Bld) 1.000 % 0.0-0.9 [facility] Comment on above: IG% - Immature Granu locytes (promyelocytes, myelocytes and metamyelocytes) > 1% indicates that a LEFT SHIFT is Present. MCH (RBC) [Entitic mass] 31.8 pg 27.0-32.0 [facility] Nucleated RBC/100 WBC (Bld) [Ratio] 0.2 % 0-5 [facility] Auto (RBC) [Mass/Vol]Or dered By: Dr. Ortiz on 04-08-2022 MCHC (RBC) [Mass/Vol] 31.2 g/dL 32-36 [facility] No Panel InformationOrdered By: Dr. Ortiz on 04-08-2022 Estimated Creatinine Clearance Calc 76.66 ml/min [facility] Estimated GFR (MDRD) Amer 111 mL/min >60 [facility] Comment on above: GFR Calc Estimated GFR (MDRD) Non-Af Amer 92 mL/min >60 [facility] Comment on above: Non- GFR Calc Platelets bldOrdered By: Dr. Ortiz on 04-08-2022 Platelets (Bld) [#/Vol] 270 10*3/uL 150-450 [facility] Serum or plasma albumin guanako urement (mass/volume)Ordered By: Dr. Ortiz on 04-08-2022 Albumin [Mass/Vol] 2.9 g/dL 3.2-5.0 [facility] Serum or plasma albumin/glob ulin mass ratioOrdered By: Dr. Ortiz on 04-08-2022 Albumin/Globulin [Mass ratio] 1.0 {ratio} 0.9-2.4 [facility] Serum or plasma calcium guanako urement (mass/volume)Ordered By: Dr. Ortiz on 04-08-2022 Calcium [Mass/Vol] 7.6 mg/dL 8.5-10.1 [facility] Serum or plasma creatinine m easurement (mass/volume)Ordered By: Dr. Ortiz on 04-08-2022 Creatinine [Mass/Vol] 0.89 mg/dL 0.70-1.30 [facility] Comment on above: The validity of the calculated GFR & GFRAA in patients over 70 years has not been determined. Clinical correlation is essential. Serum or plasma urea nitroge n measurement (mass/volume)Ordered By: Dr. Ortiz on 04-08-2022 Urea nitrogen [Mass/Vol] 18 mg/dL 7-18 [facility] Thin prep Papanicolaou smear with manual screeningOrdered By: Dr. Ortiz on 04-08-2022 Thin prep Papanicolaou smear with manual screening 47 U/L 15-37 [facility] Thin prep Papanicolaou smear with manual screening 4 5-15 [facility] Absolute lymphocyte counton 04-07-2022 Lymphocytes Auto (Unsp spec) [#/Vol] 2.49 10*3/uL 0.83-4.51 [facility] Work Phone: Basophil percentageon 2022 Basophils/100 WBC (Bld) 0.7 % 0-1 [facility] Work Phone: Bilirubin [Mass/Vol] 0.40 mg/dL 0.20-1.00 [facility] Work Phone: Comment on above: For patients on eltr ombopag therapy, use of Dimension [place] TBIL is not recommended. Chloride [Moles/Vol] 103 mmol/L 98-107 [facility] Work Phone: Eosinophils/100 WBC (Bld) 0.9 % 0-5 [facility] Work Phone: Glucose [Mass/Vol] 253 mg/dL 74-106 [facility] Work Phone: Comment on above: Glucose result great er than or equal to 200 mg/dLsuggests DIABETES MELLITUS per A.D.A. criteria. Neutrophils (Bld) [#/Vol] 11.7 10*3/uL 2.0-7.7 [facility] Work Phone: Neutrophils/100 WBC (Bld) 76.0 % 47-70 [facility] Work Phone: Potassium [Moles/Vol] 3.8 mmol/L 3.5-5.1 [facility] Work Phone: Protein [Mass/Vol] 8.0 g/dL 6.4-8.2 [facility] Work Phone: Sodium [Moles/Vol] 138 mmol/L 136-145 [facility] Work Phone: WBC (Bld) [#/Vol] 15.4 10*3/uL 4.4-11.0 [facility] Work Phone: Blood erythrocytes count (nu mber/volume)on 04-07-2022 RBC (Bld) [#/Vol] 4.82 10*6/uL 4.6-6.2 [facility] Work Phone: Blood hemoglobin measurement (mass/volume)on 04-07-2022 Hemoglobin (Bld) [Mass/Vol] 15.4 g/dL 13.0-16.5 [facility] Work Phone: Blood lymphocytes/100 leukoc yteson 04-07-2022 Lymphocytes/100 WBC (Bld) 16.2 % 19-41 [facility] Work Phone: Blood monocytes/100 leukocyt eson 04-07-2022 Monocytes/100 WBC (Bld) 5.1 % 0-10 [facility] Work Phone: Blood platelet mean volumeon 04-07-2022 Platelet mean volume (Bld) [Entitic vol] 9.9 fL 6.2-12.0 [facility] Work Phone: Determination of erythrocyte mean corpuscular volume (MCV)on 04-07-2022 MCV (RBC) [Entitic vol] 97.7 fL 80-94 [facility] Work Phone: Direct bilirubinOrdered By: Dr. Parham on 04-07-2022 Bilirubin.direct [Mass/Vol] 0.13 mg/dL 0.00-0.30 [facility] Glucose Glucometer (dC) [M ass/Vol]on 04-07-2022 Glucose [Mass/Vol] 111 mg/dL 74-106 [facility] Work Phone: Comment on above: MANAGEMENT OF PATIEN T CARE PER NURSING PROTOCOL Hematocrit Auto (Bld) [Volum e fraction]on 04-07-2022 Hematocrit (Bld) [Volume fraction] 47.1 % 40-54 [facility] Work Phone: Laboratory - Chemistry and C hemistry - challengeon 04-07-2022 ALP [Catalytic activity/Vol] 108 U/L 45-117 [facility] Work Phone: [phone] ALT [Catalytic activity/Vol] 38 U/L 16-61 [facility] Work Phone: CO2 [Moles/Vol] 28.0 mmol/L 21.0-32.0 [facility] Work Phone: Globulin (S) [Mass/Vol] 4.0 g/dL 2.2-4.2 [facility] Work Phone: Urea nitrogen/Creatinine [Mass ratio] 24.1 mg/mg 10-20 [facility] Work Phone: Laboratory - Chemistry and C hemistry - challengeOrdered By: Dr. Parham on 04-07-2022 Lipase [Catalytic activity/Vol] 135 U/L 73-393 [facility] - Hematology and Cell countson 04-07-2022 Erythrocyte distribution width (RBC) [Entitic vol] 42.3 fL 35.1-43.9 [facility] Work Phone: Erythrocyte distribution width (RBC) [Ratio] 11.7 % 11.6-14.6 [facility] Work Phone: Immature granulocytes/100 WBC (Bld) 1.100 % 0.0-0.9 [facility] Work Phone: Comment on above: IG% - Immature Granu locytes (promyelocytes, myelocytes and metamyelocytes) > 1% indicates that a LEFT SHIFT is Present. MCH (RBC) [Entitic mass] 32.0 pg 27.0-32.0 [facility] Work Phone: Nucleated RBC/100 WBC (Bld) [Ratio] 0 % 0-5 [facility] Work Phone: MCHC Auto (RBC) [Mass/Vol]on 04-07-2022 MCHC (RBC) [Mass/Vol] 32.7 g/dL 32-36 [facility] Work [facility]: No Panel InformationOrdered By: Dr. Parham on 04-07-2022 Troponin I High Sensitivity 9 pg/mL 3.0-78.0 [facility] Comment on above: Please Note: New Sofia t Units and Gender Specific Reference Ranges. For more information see Policy Stat Procedure [place] High Sensitivity Troponin (TNIH) and attachments. No Panel Informationon 04-07 Estimated Creatinine Clearance Calc 71.07 ml/min [facility] Work Phone: Estimated GFR (MDRD) Amer 102 mL/min >60 [facility] Work Phone: Comment on above: GFR Calc Estimated GFR (MDRD) Non-Af Amer 85 mL/min >60 [facility] Work Phone: Comment on above: Non- GFR Calc Platelets bldon 04-07-2022 Platelets (Bld) [#/Vol] 359 10*3/uL 150-450 [facility] Work Phone: Serum or plasma albumin guanako urement (mass/volume)on 04-07-2022 Albumin [Mass/Vol] 4.0 g/dL 3.2-5.0 [facility] Work Phone: Serum or plasma calcium guanako urement (mass/volume)on 04-07-2022 Calcium [Mass/Vol] 9.4 mg/dL 8.5-10.1 [facility] Work Phone: Serum or plasma creatinine m easurement (mass/volume)on 04-07-2022 Creatinine [Mass/Vol] 0.96 mg/dL 0.70-1.30 [facility] Work Phone: Comment on above: The validity of the calculated GFR & GFRAA in patients over 70 years has not been determined. Clinical correlation is essential. Serum or plasma urea nitroge n measurement (mass/volume)on 04-07-2022 Urea nitrogen [Mass/Vol] 23 mg/dL 7-18 [facility] Work Phone: Thin prep Papanicolaou smear with manual screeningon 04-07-2022 Thin prep Papanicolaou smear with manual screening 17 U/L 15-37 [facility] Work Phone: Thin prep Papanicolaou smear with manual screening 7 5-15 [facility] Work Phone: No Panel InformationOrdered By: Dr. Christensen on 02-18-2022 C-Peptide 2.0 ng/mL 1.1-4.4 [facility] Comment on above: C-Peptide reference interval is for fasting patients.Performed at: [facility] [id number] Director: Shad Vargas PhD, Phone: [phone] Insulin Level 3.0 mU/L 2.6-37.6 [facility] Basophil percentageon 2021 Chloride [Moles/Vol] 103 mmol/L 98-107 [facility] Work Phone: Cholesterol [Mass/Vol] 240 mg/dL <200 [facility] Work Phone: Comment on above: <200 mg/dL Desirable 200-240 mg/dL Borderline >240 mg/dL High Risk Glucose [Mass/Vol] 118 mg/dL 74-106 [facility] Work Phone: Comment on above: Fasting Glucose resu lt from 100 to 125 mg/dL suggests IMPAIRED HOMEOSTASIS per A.D.A. criteria. Potassium [Moles/Vol] 3.6 mmol/L 3.5-5.1 [facility] Work Phone: Sodium [Moles/Vol] 139 mmol/L 136-145 [facility] Work Phone: Testosterone [Mass/Vol] 230.56 ng/dL [facility] Work Phone: Comment on above: CENTRAL 90% REFERENC E RANGES MALE AGE <50 197.44 - 669.58 ng/dL MALE AGE > or = 50 187.72 - 684.19 ng/dL FEMALE AGE <50 8.38 - 35.01 ng/dL FEMALE AGE > or = 50 <7.00 - 35.92 ng/dL Effective as of 10/29/20 Triglyceride [Mass/Vol] 292 mg/dL <199 [facility] Work Phone: Comment on above: The drugs N-Acetylcy steine and Metamizole may falsely depress this assay.Serum Triglycerides Reference Interval Normal <150 mg/dL Borderline high 150 - 199 mg/dL High 200 - 499 mg/dL Very High > or = 500 mg/dL Laboratory - Chemistry and C hemistry - challengeon 11-10-2021 CO2 [Moles/Vol] 29.0 mmol/L 21.0-32.0 [facility] Work Phone: Cobalamin (Vitamin B12) [Mass/Vol] 436 pg/mL 211-911 [facility] Work Phone: Urea nitrogen/Creatinine [Mass ratio] 16.4 mg/mg 10-20 [facility] Work Phone: No Panel Informationon 11-10 Estimated GFR (MDRD) Amer 100 mL/min >60 [facility] Work Phone: Comment on above: GFR Calc Estimated GFR (MDRD) Non-Af Amer 83 mL/min >60 [facility] Work Phone: Comment on above: Non- GFR Calc Prostate Specific Antigen Screen 2.32 ng/mL 0.00-4.00 [facility] Work Phone: Comment on above: This test was perfor med using the TPSA assay method for the[employer] chemistry system. Values obtained with differentassay methods cannot be used interchangably.When changing PSA assays in the course of monitoring apatient, additional sequential testing should be carriedout to confirm baseline values. Thyroid Stimulating Hormone (TSH) 0.69 uIU/mL 0.358-3.74 [facility] Work Phone: Serum or plasma calcium guanako urement (mass/volume)on 11-10-2021 Calcium [Mass/Vol] 9.2 mg/dL 8.5-10.1 [facility] Work Phone: Serum or plasma cholesterol in HDL measurement (mass/volume)on 11-10-2021 Cholesterol in HDL [Mass/Vol] 46 mg/dL >40 [facility] Work Phone: Comment on above: The drugs N-Acetylcy steine and Metamizole may falsely depress this assay. Reference Range HDL <40 mg/dL Low HDL Cholesterol HDL >or= 60 mg/dL High HDL Cholesterol Serum or plasma cholesterol in VLDL measurement (mass/volume)on 11-10-2021 Cholesterol in VLDL [Mass/Vol] 58 mg/dL 5-40 [facility] Work Phone: Serum or plasma creatinine m easurement (mass/volume)on 11-10-2021 Creatinine [Mass/Vol] 0.98 mg/dL 0.70-1.30 [facility] Work Phone: Comment on above: The validity of the calculated GFR & GFRAA in patients over 70 years has not been determined. Clinical correlation is essential. Serum or plasma low density lipoprotein (LDL) cholesterol measurement (mass/volume)on 11-10-2021 Cholesterol in LDL [Mass/Vol] 136 mg/dL 0-130 [facility] Work Phone: Serum or plasma urea nitroge n measurement (mass/volume)on 11-10-2021 Urea nitrogen [Mass/Vol] 16 mg/dL 7-18 [facility] Work Phone: Thin prep Papanicolaou smear with manual screeningon 11-10-2021 Thin prep Papanicolaou smear with manual screening 7 5-15 [facility] Work Phone: Vital Signs Date Time Vital Sign Value Performing Clinician Faci lity 06-12-2024 23:35-0400 Body temperature 98.7 [degF] Dr. Song Christensen MD Work Phone: [facility] 06-12-2024 23:35-0400 Diastolic blood pressure 87 mm[Hg] Dr. Song Christensen MD Work Phone: [facility] 06-12-2024 23:35-0400 Heart rate 79 /min Dr. Song Christensen MD Work Phone: [facility] 06-12-2024 23:35-0400 Respiratory rate 19 /min Dr. Song Christensen MD Work Phone: [phone] [place] [address] 06-12-2024 23:35-0400 SaO2% (BldA) [Mass fraction] 99 % Dr. Song Christensen MD Work Phone: [phone] [place] [address] 06-12-2024 23:35-0400 Systolic blood pressure 161 mm[Hg] Dr. Song Christensen MD Work Phone: 3(520)832-819415 [place] [address] 06-12-2024 20:02-0400 Body height 167.[address] Song Christensen MD Work Phone: 9([phone])[phone] [place] [address] 06-12-2024 20:02-0400 Body mass index (BMI) [Ratio] 29.8 kg/m2 Dr. Song Christensen MD Work Phone: 3(345)[phone] [place] [address] 06-12-2024 20:02-0400 Body weight 83.[address] Song Christensen MD Work Phone: 0([phone] [place] [address] 04-24-2022 22:51-0500 Diastolic blood pressure 75 mm[Hg] Dr. Gutierrez Christensen Work Phone: 6(685)379-578515 [place] [address] 04-24-2022 22:51-0500 Heart rate 89 /min Dr. Gutierrez Christensen Work Phone: 0([phone] [place] [address] 04-24-2022 22:51-0500 Systolic blood pressure 122 mm[Hg] Dr. Gutierrez Christensen Work Phone: 5([phone])714-706515 [place] [address] 04-24-2022 21:59-0500 SaO2% (BldA) [Mass fraction] 98 % Dr. Gutierrez Christensen Work Phone: 7(122)691-397315 [place] [address] 04-24-2022 20:16-0500 Respiratory rate 21 /min Dr. Gutierrez Christensen Work Phone: 6(057)640-288915 [place] [address] 04-24-2022 19:43-0500 Body height 167.[address] Gutierrez Christensen Work Phone: [facility] 04-24-2022 19:43-0500 Body mass index (BMI) [Ratio] 29.9 kg/m2 Dr. Gutierrez Christensen Work Phone: [facility] 04-24-2022 19:43-0500 Body temperature 98.3 [degF] Dr. Gutierrez Christensen Work Phone: [facility] 04-24-2022 19:43-0500 Body weight 84.[address] Gutierrez Christensen Work Phone: [facility] 04-09-2022 08:10-0500 Body temperature 98.6 [degF] Dr. Gutierrez Christensen Work Phone: [facility] 04-09-2022 08:10-0500 Diastolic blood pressure 85 mm[Hg] Dr. Gutierrez Christensen Work Phone: [facility] 04-09-2022 08:10-0500 Heart rate 73 /min Dr. Gutierrez Christensen Work Phone: [facility] 04-09-2022 08:10-0500 Respiratory rate 18 /min Dr. Gutierrez Christensen Work Phone: [facility] 04-09-2022 08:10-0500 SaO2% (BldA) [Mass fraction] 92 % Dr. Gutierrez Christensen Work Phone: [facility] 04-09-2022 08:10-0500 Systolic blood pressure 153 mm[Hg] Dr. Gutierrez Christensen Work Phone: [facility] 04-08-2022 20:34-0500 Inhaled oxygen flow rate 1 L/min Dr. Gutierrez Chrisetnsen Work Phone: [facility] 04-07-2022 10:39-0500 Body height 167.[address] Gutierrez Christensen Work Phone: [facility] Work Phone: 04-07-2022 10:39-0500 Body mass index (BMI) [Ratio] 30.2 kg/m2 Dr. Gutierrez Christensen Work Phone: [facility] 04-07-2022 10:39-0500 Body temperature 98.5 [degF] Dr. Gutierrez Christensen Work Phone: [facility] Work Phone: 04-07-2022 10:39-0500 Body weight 84.[address] Gutierrez Christensen Work Phone: [facility] 04-07-2022 10:39-0500 Diastolic blood pressure 72 mm[Hg] Dr. Gutierrez Christensen Work Phone: [facility] Work Phone: 04-07-2022 10:39-0500 Heart rate 88 /min Dr. Gutierrez Christensen Work Phone: [facility] Work Phone: 04-07-2022 10:39-0500 Respiratory rate 16 /min Dr. Gutierrez Christensen Work Phone: [facility] Work Phone: 04-07-2022 10:39-0500 SaO2% (BldA) [Mass fraction] 94 % Dr. Gutierrez Christensen Work Phone: [facility] Work Phone: 04-07-2022 10:39-0500 Systolic blood pressure 133 mm[Hg] Dr. Gutierrez Christensen Work Phone: [facility] Work Phone: Encounters Encounter Date Encounter Type Care Provider Facility Start: 01-19-2025 ambulatory Song alfaro:[facility] Start: 01-16-2025 Encounter for other preprocedural examination Anton Hall [facility] Start: 06-12-2024 End: 06-12-2024 Emergency department patient visit Dr. Song Christensen MD Work Phone: -Emergency Department Work Phone: Start: 05-30-2024 Encounter for genera l adult medical examination without abnormal findings Song Christensen [facility] Start: 05-12-2024 End: 05-12-[address] Song Christensen MD -Laboratory Work Phone: Start: 05-12-2024 End: 05-12-2024 ambulatory Song Christensen Facility:[facility] Start: 06-17-2022 End: 06-17-[address] Gutierrez Christensen Work Phone: [facility] Work Phone: Start: 06-17-2022 End: 06-17-[address] Gutierrez Christensen Work Phone: [facility] Start: 04-24-2022 End: 04-24-2022 Emergency department patient visit Dr. Gutierrez Christensen Work Phone: [facility] Start: 04-20-2022 End: 04-20-[address] Gutierrez Christensen Work Phone: [facility] Start: 04-09-2022 Non-patient / Non-visit Dr. Aniyah Christensen Work Phone: [facility] Start: 04-08-2022 Non-patient / Non-visit Dr. Aniyah Christensen Work Phone: [facility] Start: 04-07-2022 End: 04-09-2022 Evaluation and management of inpatient Dr. Gutierrez Christensen Work Phone: [facility] Start: 04-07-2022 [facility] Gutierrez Christensen Work Phone: [facility] [facility] Start: 04-07-[address] Gutierrez Christensen Work Phone: [facility] Work Phone: Start: 04-07-2022 Non-patient / Non-visit Dr. Aniyah Christensen Work Phone: [facility] Start: 02-18-2022 End: 02-18-2022 ambulatory [facility] Work Phone: Start: 02-18-2022 End: 02-18-2022 Patient encounter procedure [facility] Start: 11-10-2021 End: 11-10-2021 Patient encounter procedure [facility] Procedures Date Procedure Procedure Detail Performing Clinician Start: 06-12-2024 Measurement of occul t blood in stool specimen using immunoassay Dr. Song Christensen MD Work Phone: Start: 04-24-2022 Plain chest X-ray Dr. Elkin Christensen Work Phone: Start: 04-24-2022 CT cervical spine without contrast Dr. Gutierrez Christensen Work Phone: Start: 04-24-2022 CT of head without contrast Dr. Gutierrez Christensen Work Phone: Start: 04-07-[address] Jethro Christensen Work Phone: Start: 04-07-2022 Fluoroscopic guidance Marzena Christensen Work Phone: Start: 04-07-2022 Total cholecystectom y and exploration of common bile duct Dr. Gutierrez Christensen Work Phone: Start: 04-07-2022 US scan of gallbladder Dr. Gutierrez Christensen Work Phone: Start: 04-07-2022 Computed tomography of abdomen and pelvis with intravenous contrast Dr. Gutierrez Christensen Work Phone: Start: 04-07-2022 Plain chest X-ray Dr. Elkin Christensen Work Phone: History of cholecystectomy Status post cholecystectomy Dr. Gutierrez Christensen Work Phone: Comment on above: Pt here for first f/ u of lap gael w IOC on 04/07/22. Doing very well and healing well per exam. Recommend application of triple abx ointment to incisions nightly to finalize healing. Concerning return to work- pt w a very physically-demanding occupation and states there is no light duty. Therefore, recommending holding off on return to work until 04/27 and then urged him to exercise caution as he restarts activity. Work note written History of cholecystectomy Status post cholecystectomy Dr. Gutierrez Christensen Work Phone: Plan of Treatment Date Care Activity Detail Author Start: 04-09-2022 Patient discharge [facility] Start: 04-08-2022 Ambulation therapy management [facility] Start: 04-08-2022 Introduction of urinary catheter [facility] Start: 04-08-2022 [facility] Start: 04-08-2022 Application of intermittent pneumatic compression device [facility] Start: 04-08-2022 Incentive spirometry [facility] Start: 04-08-2022 Introduction of urinary catheter [facility] Start: 04-08-2022 [facility] Work Phone: Start: 04-07-2022 Following clinical pathway protocol [facility] Start: 04-07-2022 [facility] Start: 04-07-2022 Total cholecystectomy and exploration of common bile duct Laparoscopic, Cholecystectomy with IOC (Not Applicable) [facility] Work Phone: Start: 04-07-2022 Fluoroscopic guidance O.R. Fluoro for C-Arm [facility] Work Phone: Start: 04-07-2022 Cholangiogram Cholangiogram/ O R,Initial [facility] Work Phone: Start: 04-07-2022 Incentive spirometry [facility] Start: 04-07-2022 [facility] Work Phone: Start: 04-07-2022 Admission procedure [facility] Start: 04-07-2022 [facility] Work Phone: Alanine aminotransfe rase [Enzymatic activity/volume] in Serum or Plasma [facility] Work Phone: Albumin [Mass/volume ] in Serum or Plasma [facility] Work Phone: Alkaline phosphatase [Enzymatic activity/volume] in Serum or Plasma [facility] Work Phone: Anion gap measurement [facility] Work Phone: Aspartate aminotrans ferase [Enzymatic activity/volume] in Serum or Plasma [facility] Work Phone: Bilirubin, total measurement [facility] Work Phone: BUN/Creatinine ratio [facility] Work Phone: Calcium [Mass/volume ] in Serum or Plasma [facility] Work Phone: Carbon dioxide, tota l [Moles/volume] in Serum or Plasma [facility] Work Phone: Chloride [Moles/volu me] in Serum or Plasma [facility] Work Phone: Creatinine [Moles/vo lume] in Serum or Plasma [facility] Work Phone: Glucose [Mass/volume ] in Serum or Plasma [facility] Work Phone: Hematocrit [Volume Fraction] of Blood [facility] Work Phone: Hemoglobin [Mass/vol ume] in Blood [facility] Work Phone: Leukocytes [#/volume ] in Blood [facility] Work Phone: Mean corpuscular hemoglobin concentration determination [facility] Work Phone: Mean corpuscular hemoglobin determination [facility] Work Phone: Measurement of renal function [facility] Work Phone: Neutrophil count [facility] Work Phone: Neutrophil percent differential count [facility] Work Phone: Patient Education [facility] Work Phone: Patient referral [facility] Work Phone: Platelets [#/volume] in Blood [facility] Work Phone: Potassium [Moles/vol ume] in Serum or Plasma [facility] Work Phone: Red blood cell count [facility] Work Phone: Red cell distributio n width determination [facility] Work Phone: Sodium [Moles/volume ] in Serum or Plasma [facility] Work Phone: Total protein measurement [facility] Work Phone: Urea nitrogen [Mass/volume] in Serum or Plasma [facility] Work Phone: Payers Date Payer Category Payer Medicare [id number] 2024 Self-pay [id number] 2024 Unknown [id number] 2016 Unknown ANTHEM [id number] Unknown [employer] [id number] Unknown [employer] [id number] Unknown [employer] [id number] Unknown [id number] Unknown [id number] Unknown [id number] Social History Date Type Detail Facility Start: 02-05-2021 End: 04-24-2022 Tobacco smoking status NHIS Unknown if ever smoked [facility] Start: 10-10-2016 Rare [facility] Start: 10-10-2016 None [facility] Start: 10-10-2016 Chew [facility] Start: 1960 Sex Assigned At Male W [facility] Start: 06-12-2024 Tobacco smoking stat us NHIS Never smoked tobacco (finding) [facility] Start: 06-12-2024 Sex Male (finding) [facility] Medical Equipment Procedure Code Equipment Code Equipment Original Text Equipment Identifier Dates Total cholecystectomy with exploration of common bile duct 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 [id number] FDA Start: 04-07-2022 Goals Date Patient Goal Desired Activity /State Functional Status Date Assessment Result Facility 04-09-2022 Functional status Ambulates [facility] Work Phone: Mental Status Date Assessment Result Facility 04-24-2022 Cognitive function Level Of Cons ciousness Awake;Alert;Appropriate [facility] Work Phone: 04-09-2022 Cognitive function Voice/Name [facility] Work Phone: 04-07-2022 Cognitive function Level Of Cons ciousness Awake;Alert;Appropriate;Follow s Commands [facility] Work Phone: Discharge summary 06-12-2024 Note Date & Type Note Facility 06-12-2024 Discharge summary [facility] Discharge summary 06-12-2024 Note Date & Type Note Facility 06-12-2024 Discharge summary Note Date/Time June 12, 2024 11:30pm [facility] Medical Records Department [address] [place] [address] Emergency Department Summary 06/12/24 MR#: [id number] Acct: [id number] Name: LOUIS MOREIRA Rep #:[id number] : 1960 63 From: Nikko Arango MD PCP: Dr. Song Christensen MD Status :REG ER Location: ED HPI HPI - GI History of Present Illness Chief Complaint: GI Bleed Narrative Narrative: 63-year-old male who denies significant past medical history although has had remote partial colectomy for perforated diverticulitis presents with lower GI bleeding that he experienced a few hours ago. He states that his primary care provider had him do Cologuard. He was Hemoccult positive. He is set up to havecolonoscopy performed in about a week. However, he states he came home from work today, approximately 4 hours ago, felt like he had to have a bowel movement, and had a bowel movement that consisted of brown stool and bright red blood. He is no longer having any rectal bleeding. He feels slightly lightheaded but denies any chest pain or shortness of breath. No abdominal pain. While he does not take a blood thinner, he takes an NSAID for his arthritis. He presents today because of the 1 episode of bright red blood in the lightheadedness. [facility] Medical History History of diabetes mellitus Diabetes Hypertension Diverticulitis Home Medications ?Medication ?Instructions ?Recorded ?Last Taken ?Type insulin glargine 100 unit/mL (3 40 unit subcut DAILY D IABETES 04/07/22 11/23/23 History mL) subcutaneous pen (Lantus Solostar U-100 Insulin) lisinopril 40 mg tablet 40 mg PO DAILY BLOOD PRESSUR E 04/07/22 11/24/23 History insulin lispro 100 unit/mL 6 unit subcut QHS 06/12/24 Unknown History subcutaneous half-unit pen (Humalog Jose R KwikPen (U-100)) metformin 500 mg tablet,extended 1,000 mg PO DAILY 01/27 Unknown History release 24 hr omeprazole 40 mg capsule,delayed 40 mg PO DAILY #30 ca ps 06/12/24 Unknown Rx release venlafaxine 150 mg 150 mg PO DAILY 06/12/24 Unk nown History capsule,extended release 24 hr Allergy/AdvReac Type Severity Reaction Status Date / Time simvastatin (From Zocor) AdvReac Pain in Verified 06/12/24 20:02 joints Surgical History Status post cholecystectomy H/O shoulder surgery Social History Smoking Status: Never smoker ROS ROS ED ROS Narrative Review of systems positive for bright red blood per rectum with mild lightheadedness. No chest pain or shortness of breath. No nausea or vomiting. No diarrhea. No abdominal pain. EXAM Physical Exam Narrative Exam Narrative: Afebrile. Vital signs noted. Nontoxic-appearing. HEENT examination is grosslyunremarkable with no central cyanosis. No subconjunctival anemia. Cardiovascular examination reveals a regular rate and rhythm, lungs clear to auscultation bilaterally. Abdomen is soft and nontender without guarding or rebound. Positive bowel sounds. Neurological examination nonfocal and nonlateralizing. Const Vital Signs: 06/12/24 20:02 06/12/24 22:15 06/12/24 22:16 Temperature 98.3 F Temperature Source Temporal Pulse Rate 103 H 86 Pulse Rate [Lying] 85 Pulse Rate [Sitting (for 1 minute prior to obtaining)] 85 Pulse Rate [Standing (for 1 minute prior to obtaining)] 90 Respiratory Rate 15 17 Blood Pressure 189/84 H Blood Pressure [Lying] 163/92 H Blood Pressure [Sitting (for 1 minute prior to obtaining)] 164/94 H Blood Pressure [Standing (for 1 minute prior to obtaining)] 139/89 H Blood Pressure Mean 119 Blood Pressure Mean [Lying] 115 Blood Pressure Mean [Sitting (for 1 minute prior to obtaining)] 117 Blood Pressure Mean [Standing (for 1 minute prior to obtaining)] 105 Pulse Ox 99 98 Oxygen Delivery Method Room Air Room Air MDM MDM MDM Narrative Medical decision making narrative: Differential diagnosis includes but not limited to diverticular bleed versus AV malformation versus internal hemorrhoid. I doubt brisk upper GI bleed as he hasnot had any hematemesis. He has no abdominal pain. I do not feel that he requires CT imaging currently. I will obtain orthostatic vital signs given his lightheadedness. Baseline laboratories the form of CBC, CMP, and lipase were obtained per protocol. I will obtain an EKG as well. EKG was obtained and interpreted by myself independently as normal sinus rhythm at 89 bpm without ectopy or acute ST changes. No STEMI. I reviewed his laboratory work, and he has normal white count of 10.6 with hemoglobin stable at12.4, hematocrit 36.7, platelet count normal at 305. Sodium is normal at 139 with potassium 4.0 and BUN slightly elevated 26 with creatinine 0.76. LFTs grossly unremarkable. Lipase normal at 33. Orthostatics were negative for any significant drop in his blood pressure, and there was no significant increase inhis heart rate or tachycardia. Chaperoned rectal examination did show bright red blood that was dried around the anus, and on digital rectal examination he did have dark brown to black stool, but no active bleeding. I discussed patient with Dr. Enrique with gastroenterology. It was felt that as the patient has not had another bowel movement and has no active bleeding on hisrectal examination currently that he could be discharged to follow-up for outpatient endoscopy. The patient feels well and through shared decision makingwould like to go home. I feel that he is probably having more of a stable lowerGI bleed. He will return with any increased bleeding, increased lightheadedness, new or worsening symptoms. Dr. Enrique did suggest that he be started on a proton pump inhibitor and he was given his first dose here in the emergency department and prescription written to take 40 mg daily. Follow-up with gastroenterology. Return instructions reviewed. Disposition discharged home in stable condition. History & Record Review Discussion w/independent historian: Patient and Family Lab Data Attestation: I reviewed the patient's lab results. Labs: Laboratory Results - last 24 hr 06/12/24 21:41 WBC 10.6 RBC 3.82 L Hgb 12.4 L Hct 36.7 L MCV 96.1 H MCH 32.5 H MCHC 33.8 RDW Std Deviation 42.2 RDW Coeff of Krystal 12.1 Plt Count 305 MPV 9.5 Immature Gran % (Auto) 0.800 Neut % (Auto) 74.1 H Lymph % (Auto) 16.1 L [place] % (Auto) 6.9 Eos % (Auto) 1.4 Baso % (Auto) 0.7 Absolute Neuts (auto) 7.9 H Absolute Lymphs (auto) 1.71 Nucleated RBC % 0 Sodium 139 Potassium 4.0 Chloride 105 Carbon Dioxide 20.8 L Anion Gap 13 BUN 26 H Creatinine 0.76 Estim Creat Clear Calc 93.55 Est GFR (MDRD) Non-Af 100 BUN/Creatinine Ratio 34.2 H Glucose 206 H Calcium 8.8 Total Bilirubin 0.24 AST 19 ALT 21 Alkaline Phosphatase 76 Total Protein 6.5 Albumin 4.0 Globulin 2.6 Albumin/Globulin Ratio 1.5 Lipase 33 Management Discussion w/another healthcare provider: Commercial Stripper (Dr. Enrique, gastroenterology) Discharge Plan Triage Chief Complaint: GI Bleed ED Provider: Nikko Arango Dx/Rx/DC Orders Clinical Impression: Rectal bleeding Instructions: Understanding Rectal Bleeding, ED Lower GI Bleeding (Stable) Prescriptions: New omeprazole 40 mg capsule,delayed release(DR/EC) 40 mg PO DAILY Qty: 30 0RF No Action insulin glargine [Lantus Solostar U-100 Insulin] 100 unit/mL (3 mL) insulin pen 40 unit SUBCUT DAILY Patient Comments: INJECT 30 UNITS SUBCUTANEOUSLY AT BEDTIME lisinopril 40 mg tablet 40 mg PO DAILY Patient Comments: TAKE 1 TABLET BY MOUTH EVERY DAY venlafaxine 150 mg capsule,extended release 24hr 150 mg PO DAILY Patient Comments: [NO ORIGINAL SIG] metformin 500 mg tablet extended release 24 hr 1,000 mg PO DAILY insulin lispro [Humalog Jose R KwikPen U-100] 100 unit/mL insulin pen, half-unit 6 unit subcut QHS Stand Alone Forms: ED Work / School Excuse Primary Care Provider: Snog Christensen Referrals: tor [Other] Song Christensen MD [Primary Care Provider] - Shad Araya MD [Non-Staff] - Activity Restrictions/Additional Instructions: Return to the emergency department with increased rectal bleeding, new or worsening symptoms. 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 Take your proton pump inhibitor daily. Print Language: Italian Disposition Disposition: Home, Self Care What to do if you have Problems For any increased pain, shortness of breath, bleeding, nausea or vomiting, chestpain, or any unexpected problems, contact your Primary Care Provider. Call [facility] ([phone]) or report to the closest Emergency Room. Call 911 if necessary. 06/12/24 1636 <Electronically signed by Nikko Arango MD> Cosigner Signature (if applicable): CC: Dr. Song Christensen MD ~ Signed ADDENDUM by Dr. Nikko Arango MD on 06/12/24 at 2330 Of note, his Hemoccult did return and although he had dark brown to black stool,it was Hemoccult negative. This is more reassuring that he can be discharged tofollow-up with gastroenterology as an outpatient. Disposition is discharged home in stable condition. 06/12/24 2330<Electronically signed by Nikko Arango MD> Cosigner Signature (if applicable): cc: Dr. Song Christensen MD ~* Signed [facility] Work Phone: Evaluation note Note Date & Type Note Facility Evaluation note No assessment information availa ble [facility] Work Phone: Evaluation note Note Date & Type Note Facility Evaluation note Diagnosis Onset Date Abdominal pain acute Acute cholecystitis acute History of diabetes mellitus acute Leukocytosis acute [facility] Work Phone: Evaluation note Note Date & Type Note Facility Evaluation note Diagnosis Onset Date Abdominal pain acute Acute cholecystitis acute History of diabetes mellitus acute Leukocytosis acute Status post cholecystectomy acute [facility] Work Phone: Evaluation note Note Date & Type Note Facility Evaluation note Diagnosis Onset Date Abdominal pain resolved Acute cholecystitis resolved Leukocytosis resolved Status post cholecystectomy resolved Status post cholecystectomy resolved [facility] Work Phone: Hospital Discharge instructions Note Date & Type Note Facility Hospital Discharge instructions Additional Instructions Please follow-up with PCP and return if you have another syncopal episode. [facility] Work Phone: Hospital Discharge instructions Note Date & Type Note Facility Hospital Discharge instructions Additional Instructions Return to the emergency department with increased rectal bleeding, new or worsening symptoms. 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 Take your proton pump inhibitor daily. [facility] Work Phone: Reason for referral (narrative) Note Date & Type Note Facility Reason for referral (narrative) No reason for referral information available [facility] Work Phone: Family History No Family History Records Found Relationship Condition Age at Onset Recorded Date/T daivd Unknown Family History?No pe rtinent history, - Unknown October 10, 2016 5:05pm Family History?No pe rtinent history, - Unknown October 10, 2016 5:05pm Relationship Condition Age at Onset Recorded Date/T david Unknown Family History?No pe rtinent history, - Unknown October 10, 2016 6:05pm Family History?No pe rtinent history, - Unknown October 10, 2016 6:05pm Advance Directives No Advanced Directives Records Found Advance Directive Response Recorded Date/ Time Advance Directives Yes December 11:40pm Living Will No October 10, 2016 2 :56pm Power of Commercial Counsel No October 10, 2016 2:56pm Advance Directive Response Recorded Date/ Time Advance Directives Yes December 11:40pm Living Will No April 07 12:43am Power of Commercial Counsel No April 07 12:43am Advance Directive Response Recorded Date/ Time Advance Directives Yes December 11:40pm Living Will No April 24 7:50pm Power of Commercial Counsel No April 24, 2022 7:50pm Advance Directive Response Recorded Date/ Time Advance Directives Yes December 12:40am Living Will No April 24 8:50pm Power of Commercial Counsel No April 24, 2022 8:50pm Advance Directive Response Recorded Date/ Time Living Will No June 12, 2024 10:00pm Power of Commercial Counsel No June 12 10:00pm Advance Directives Yes December 12:40am Chief Complaint and Reason for Visit Chief Complaint cp ACUTE CHOLECYSTITIS Reason for Visit Abdominal pain Acute cholecystitis History of diabetes mellitus Leukocytosis Chief Complaint cp ACUTE CHOLECYSTITIS ACUTE CHOLECYSTITIS ACUTE CHOLECYSTITIS Reason for Visit Abdominal pain Acute cholecystitis History of diabetes mellitus Leukocytosis Status post cholecystectomy Chief Complaint cp ACUTE CHOLECYSTITIS ACUTE CHOLECYSTITIS ACUTE CHOLECYSTITIS F/U lap gael 1/3 syncope Reason for Visit Abdominal pain Acute cholecystitis Leukocytosis Status post cholecystectomy Status post cholecystectomy Chief Complaint Admit Date E-ORDER May 12, 2024 9 :37am GI BLEED June 12, 2024 8:0 0pm Summary Purpose Additional Source Comments Goals (unrecognized section and content) Goals may be documented in a n alternate sectionGoals may be documented in an alternate section Care Teams (unrecognized sec tion and content) Team Status: Active Member Role Status Dates Dr. Gutierrez Christensen MD Family Provider Active Dr. Gutierrez Christensen MD Primary Care Provider Activ e Team Status: Active Member Role Status Dates Dr. Gutierrez Christensen MD Primary Care Provider Activ e Dr. Frank Parham MD Emergency Provider Active Dr. Kingston Ortiz MD Attending Provider Active Team Status: Active Member Role Status Dates Dr. Gutierrez Christensen MD Primary Care Provider Activ e Dr. Frank Parham MD Emergency Provider Active Dr. Kingston Ortiz MD Admit Provider, A ttending Provider, Other Provider Active Team Status: Inactive Member Role Status Dates Dr. Gutierrez Christensen MD Primary Care Provider, Refe rring Provider Active Dr. Kingston Ortiz MD Attending Provider Active Team Status: Inactive Member Role Status Dates Dr. Gutierrez Christensen MD Primary Care Provider, Attending Provider, Referring Provider Active Team Status: Inactive Member Role Status Dates Dr. Gutierrez Christensen MD Primary Care Provider Activ e Dr. Frank Parham MD Emergency Provider Active Dr. Kingston Ortiz MD Admit Provider, Attending Provi yemi Active Team Status: Inactive Member Role Status Dates Dr. Gutierrez Christensen MD Primary Care Provider Activ e Dr. Floridalma Osullivan MD Emergency Provider Active Team Status: Inactive Member Role Status Dates Dr. Gutierrez Christensen MD Primary Care Provider Activ e Dr. Floridalma Osullivan MD Attending Provider, Emergency Provider Active Team Status: Active Member Role Status Dates Dr. Song Christensen MD Primary Care Provider Acti ve Team Status: Inactive Member Role Status Dates Dr. Song Christensen MD Primary Care Provider Acti ve Start: May 12, 2024 End: May 12, 2024 Dr. Song Christensen MD Attending Provider Active Start: May 12, 2024 End: May 12, 2024 Dr. Song Christensen MD Referring Provider Active Start: May 12, 2024 End: May 12, 2024 Team Status: Inactive Member Role Status Dates Dr. Song Christensen MD Primary Care Provider Acti ve Start: June 12, 2024 End: June 12, 2024 Nikko Arango MD Emergency Provider Active Star t: June 12, 2024 End: June 12, 2024 (unrecognized sect ion and content) No Status Records Found INFORMATION SOURCE (unrecogn ized section and content) DATE CREATED AUTHOR 01/17/2025 [facility] FOR RECORDS PERTAINING TO PATIENTS WHO ARE OR HAVE BEEN ENROLLED IN A CHEMICAL DEPENDENCY/SUBSTANCEABUSE PROGRAM, SOME INFORMATION MAY BE OMITTED. This clinical summary was aggregated from multiple sources. Caution should be exercised in using it in the provision of clinical care. This summary normalizes information from multiple sources, and as a consequence, information in this document may materially change the coding, format and clinical context of patient data. In addition, data may be omitted in some cases. CLINICAL DECISIONS SHOULD BE BASED ON THE PRIMARY CLINICAL RECORDS. [facility] [employer] [facility]. provides no warranty or guarantee of the accuracy or completeness of information in this document.
[2025-01-19 09:34] LABS: Hematocrit 46.3 % (40-54); Hemoglobin 15.3 g/dL (13.0-16.5); Immature Granulocytes Count 0.060 X10^3/uL (0.0-0.0); Mean Corp Hgb Conc 33.0 g/dL (32-36); Mean Corpuscular Volume 95.3 fL (80-94); Mean Platelet Vol. 9.8 fl (6.2-12.0); NRBC Flagged by Analyzer 0 % (0-5); Platelet Count 315 K/mm3 (150-450); RBC Distribution Width CV 11.5 % (11.6-14.6); RBC Distribution Width SD 40.2 fl (35.1-43.9); Red Blood Count 4.86 M/mm3 (4.6-6.2); White Blood Count 7.7 K/mm3 (4.4-11.0)
[2025-01-19 10:02] LABS: Anion Gap 12 (5-15); BUN 15 mg/dL (4-19); BUN/Creat Ratio 17.5 RATIO (10-20); Calcium,Total 9.4 mg/dL (7.6-11.0); Carbon Dioxide 24.9 mmol/L (21.0-32.0); Chloride 104 mmol/L (98-108); Glucose 117 mg/dL (70-99); Potassium 4.1 mmol/L (3.3-5.1)
== END | disposition home or self-care (01) ==
LOC: PSN 08:09
PROVIDERS: PCP Family Medicine; Referring Provider Student in an Organized Health Care Education/Training Program; Visit Provider Student in an Organized Health Care Education/Training Program
DX: Z01.818 Encounter for other preprocedural examination (principal); E11.9 Type 2 diabetes mellitus without complications; Z01.810 Encounter for preprocedural cardiovascular examination
CPT/HCPCS: 36415; 80048; 83036; 85025; 93005